=== PATIENT | male | born 1940 | race Caucasian/White ===

== ENCOUNTER 2019-12-31 09:17 | Inpatient (IN) | payer MEDICARE, SELFPAY ==
[2019-12-31] VITALS (15 sets, daily range): BP systolic 115–146; BP diastolic 61–73; PULSE 60–88; RESP 15–28; TEMP 36.4–37.8; O2SAT 88–98; BMI 23.9; BMI 23.4
--- NOTE | 2019-12-31 09:26 | EKG12_ITS ---
Test Reason : SOB Blood Pressure : / mmHG Vent. 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
--- NOTE | 2019-12-31 09:29 | ED.DCSUM_ITS ---
History of Present Illness Chief Complaint: Shortness of Breath Informant: Patient, Family Onset: Days Context: Gradual Onset Current Severity: Mild Maximum Severity: Mild Narrative: Patient presents via EMS secondary to shortness of breath and increased confusion. Per she noted symptoms 4 days ago and want him evaluated that time. She states that he will gasp for breath in his sleep. Patient does note chills and a mild dry cough. He denies fever. advises me that he will eat breakfast each morning but otherwise would not eat the rest of the day. He has been taking his medications appropriately. - Past Medical History (1) Seizures Status: Chronic Past Medical History - Allergies and Home Meds Allergies/Adverse Reactions: Allergies No Known Allergies Allergy (Verified 12/31/19 09:21) Primary Care Physician: Levar Pedroza MD [Primary Care Provider] - Prior records reviewed: Yes Lives: Spouse/ Significant Other Smoking Status: Never smoker Review of Systems General: Reports: Chills. Denies: Fever Eyes: Denies: Visual changes - bilaterally ENT: Denies: Bilateral ear pain Cardiovascular: Denies: Chest pain Respiratory: Reports: Dyspnea, Cough. Denies: Sputum Gastrointestinal: Denies: Abdominal pain, Vomiting, Diarrhea Musculoskeletal: Denies: Extremity Pain Skin: Denies: Rash Neurological: Denies: Headache Hematologic: Denies: Easy bruising, Easy bleeding Allergy: Denies: Uticaria Physical Exam Vital Signs/Narrative: Vital Signs Temp Pulse Resp BP Pulse Ox 12/31/19 09:19 97.9 F 79 26 H 130/61 H 94 12/31/19 09:17 97.9 F 82 22 H 130/61 H 94 Inital Vital Signs reviewed: Yes General: Well nourished, Well developed Head: Normocephalic ENT: Moist mucous membranes Neck: Supple Cardiovascular: Regular rate, Regular rhythm Respiratory: No distress, CTA bilaterally, - - Tachypneic Abdomen: Soft, Nontender Extremities: Nontender Skin: Normal color Neurological: Alert, Oriented x3, - - No focal neurologic deficits Psychological: Normal affect Diagnostic/Tx/Re-eval Impressions Chest X-Ray 12/31/19 09:37 IMPRESSION: Mild increased markings in the right infrahilar region as well as in the left mid lung. This may represent early infiltrates. Follow-up is recommended. Electronically Signed: Shaun Linares, at 9:52 EDT , Service support , Chest CTA 12/31/19 10:15 IMPRESSION: Bilateral pulmonary infiltrates in the preferentially lateral distribution as described. Pneumonitis associated with Covid should be ruled out. Electronically Signed: Shaun Linares, at 11:25 EDT , Service support , 12/31/19 09:37 Chest 1 View (Portable) [RAD] Stat 12/31/19 10:15 CTA Chest W/WO Contrast [CT] Stat Laboratory Results 12/31/19 12/31/19 12/31/19 09:25 09:25 09:25 WBC 6.0 RBC 4.70 Hgb 14.9 Hct 44.6 MCV 94.9 H MCH 31.7 MCHC 33.4 RDW Std Deviation 45.2 H RDW Coeff of Lisandro 12.9 Plt Count 169 MPV 10.2 Immature Gran % (Auto) 0.700 Neut % (Auto) 77.4 H Lymph % (Auto) 15.1 L [place] % (Auto) 6.8 Eos % (Auto) 0.0 Baso % (Auto) 0.0 Absolute Neuts (auto) 4.7 Absolute Lymphs (auto) 0.91 Nucleated RBC % 0 Differential Comment SCANNED D-Dimer Quant (PE/DVT) 1.72 H* Sodium 140 Potassium 3.5 Chloride 112 H Carbon Dioxide 21.0 Anion Gap 7 BUN 23 H Creatinine 1.48 H Estim Creat Clear Calc 42.47 Est GFR (MDRD) Af Amer 59 L Est GFR (MDRD) Non-Af 49 L BUN/Creatinine Ratio 15.5 Glucose 93 Lactic Acid Calcium 8.4 L Total Bilirubin 0.90 AST 83 H ALT 56 Alkaline Phosphatase 74 Troponin I 0.023 Total Protein 7.3 Albumin 3.0 L Globulin 4.3 H Albumin/Globulin Ratio 0.7 L Procalcitonin COVID-19 (PENNY) 12/31/19 12/31/19 12/31/19 09:25 09:25 09:35 WBC RBC Hgb Hct MCV MCH MCHC RDW Std Deviation RDW Coeff of Lisandro Plt Count MPV Immature Gran % (Auto) Neut % (Auto) Lymph % (Auto) [place] % (Auto) Eos % (Auto) Baso % (Auto) Absolute Neuts (auto) Absolute Lymphs (auto) Nucleated RBC % Differential Comment D-Dimer Quant (PE/DVT) Sodium Potassium Chloride Carbon Dioxide Anion Gap BUN Creatinine Estim Creat Clear Calc Est GFR (MDRD) Af Amer Est GFR (MDRD) Non-Af BUN/Creatinine Ratio Glucose Lactic Acid 1.7 Calcium Total Bilirubin AST ALT Alkaline Phosphatase Troponin I Total Protein Albumin Globulin Albumin/Globulin Ratio Procalcitonin 0.14 H COVID-19 (PENNY) Detected - EKG Initial EKG Interpretation: Sinus Rhythm - Sinus at 78 with no acute ischemia. - Medical Decision Making Patient has been stable on room air while sitting at rest. He does, however, have intermittent confusion. Test results have been discussed with him multiple times. Patient's has called multiple times and has been very upset that she was not able to come back to the room with him. I did call her to explain his test results and did recommend hospitalization for further observation of his breathing as he remains quite tachypneic. Patient will be discussed with the hospitalist. ED Disposition - Plan for ED Patient: Disposition: Acute Care Hospital [facility] Diagnosis: COVID-19, Confusion Referrals: Levar Pedroza MD [Primary Care Provider] -
--- NOTE | 2019-12-31 09:37 | RAD_ITS ---
STUDY: X-RAY CHEST REASON FOR EXAM: Male, 79 years old. SOB xA FEW DAYS, CHILLS TECHNIQUE: Single AP portable view of the chest. COMPARISON: None. FINDINGS: EKG electrodes are seen. There are mild increased markings in the right infrahilar region as well as in the peripheral aspect of the left mid lung. Follow-up is recommended. There is no demonstrated pleural abnormality. Normal size heart. Normal mediastinum and yayo. Normal visualized pulmonary arteries. There is atherosclerotic tortuosity of the aortic arch and descending thoracic aorta. There are diffuse degenerative changes of the visualized thoracic spine. Normal visualized ribs, clavicles, and shoulders. There is no demonstrated abnormality of the visualized soft tissue structures of the upper abdomen. RAD/Chest 1 View (Portable) IMPRESSION: Mild increased markings in the right infrahilar region as well as in the left mid lung. This may represent early infiltrates. Follow-up is recommended. Electronically Signed: Shaun Linares, at 9:52 EDT , Service support ,
[2019-12-31 09:59] LABS: Absolute Lymphocyte Count 0.91 X10^3/uL (0.83-4.51); Absolute Neutrophil Count 4.7 X10^3/uL (2.0-7.7); Hematocrit 44.6 % (40-54); Hemoglobin 14.9 g/dL (13.0-16.5); Lymphocyte # 0.91 X10^3/ul (4.0); Lymphocyte % 15.1 % (19-41); Mean Corp Hgb Conc 33.4 g/dL (32-36); Mean Corpuscular Hgb 31.7 pg (27.0-32.0); Mean Corpuscular Volume 94.9 fL (80-94); Mean Platelet Vol. 10.2 fl (6.2-12.0); Monocyte# 0.41 X10^3/uL; Monocyte% 6.8 % (0-10); NRBC Flagged by Analyzer 0 % (0-5); Neutrophil # 4.68 X10^3/uL (2.7-7.7); Neutrophil % 77.4 % (47-70); POSITIVE MORPHOLOGY YES; Platelet Count 169 K/mm3 (150-450); RBC Distribution Width CV 12.9 % (11.6-14.6); RBC Distribution Width SD 45.2 fl (35.1-43.9)
[2019-12-31 10:03] LABS: Differential Indicated SCAN CRITERIA MET
[2019-12-31 10:11] LABS: ALB/GLOB Ratio 0.7 RATIO (0.9-2.4); AST(SGOT) 83 U/L (15-37); Alanine Aminotransfer ALT/SGPT 56 U/L (16-61); Alkaline Phosphatase 74 U/L (45-117); Anion Gap 7 (5-15); BUN 23 mg/dL (7-18); BUN/Creat Ratio 15.5 RATIO (10-20); Calcium,Total 8.4 mg/dL (8.5-10.1); Chloride 112 mmol/L (98-107); Creatinine, Serum 1.48 mg/dL (0.70-1.30); EST Glomerular Filtration Rate 49 mL/min (>60); Est Glom Filt Rate - Afr Amer 59 mL/min (>60); Estimated Creatinine Clearance 42.47 ml/min; Globulin 4.3 g/dL (2.2-4.2); Glucose 93 mg/dL (74-106); Potassium 3.5 mmol/L (3.5-5.1); Protein, Total 7.3 g/dL (6.4-8.2); Sodium Level 140 mmol/L (136-145)
[2019-12-31 10:14] LABS: D-Dimer Quantitative (DVT/PE) 1.72 FEU/ug/m (0.27-0.49)
--- NOTE | 2019-12-31 10:15 | CT_ITS ---
STUDY: CTA CHEST REASON FOR EXAM: Male, 79 years old. SOB X A FEW DAYS, CHILLS, SEIZURE RADIATION DOSAGE (If Supplied By Facility): CTDIvol = ( 15.18 ) mGy, DLP = ( 432.79 ) mGycm TECHNIQUE: The examination was performed with the intravenous administration of IV 100mL Isovue-370. Post-processing of the angiographic images was performed, with multiplanar reformation and 3D reconstruction. Individualized dose optimization techniques were used for this CT. COMPARISON: None. FINDINGS: Normal enhancement of the main pulmonary artery and right and left pulmonary arteries. Normal enhancement of the bilateral peripheral pulmonary arteries. There is no demonstrated pulmonary embolism. There is atherosclerotic calcification of the aortic arch with tortuosity. There is no demonstrated aortic dissection. Normal heart and pericardium. There are visualized mediastinal lymph nodes, which are within normal size limits, and with normal morphology. Mildly enlarged right hilar lymph node measuring 1.7 cm. Normal visualized trachea and bronchi. The lungs are well expanded. Multiple areas of groundglass appearance in the preferentially lateral distribution in both lungs. There is evidence of infiltration at both lung bases more prominent on the right side. There is also to a mild degree of scarring with bronchiectasis in the lower lobes. Findings are suggestive of lateral distribution as described. Findings suggestive of a Covid pneumonitis. Normal pleura. Normal chest wall structures. There are degenerative changes of thoracic spine. Small hiatal hernia. CT/CTA Chest W/WO Contrast IMPRESSION: Bilateral pulmonary infiltrates in the preferentially lateral distribution as described. Pneumonitis associated with Covid should be ruled out. Electronically Signed: Shaun Linares, at 11:25 EDT , Service support ,
[2019-12-31 10:20] LABS: Lactic Acid 1.7 mmol/L (0.4-1.9)
[2019-12-31 10:27] LABS: Differential Comment SCANNED
[2019-12-31 10:48] LABS: Procalcitonin 0.14 ng/mL (0.00-0.09)
--- NOTE | 2019-12-31 12:59 | HP.PCM_ITS ---
Problem List (1) Acute metabolic encephalopathy Status: Acute (2) CKD (chronic kidney disease) Status: Chronic Qualifiers: Chronic kidney disease stage: stage 3 (moderate) (3) Seizures Status: Chronic (4) COVID-19 Status: Acute History of Present Illness Date of Admission: 12/31/19 Chief Complaint: Shortness of breath and increased confusion - 15 days but worsened over the last 4 days The patient is a 79 year old M with PMHx of seizure disorder, h/o TIA, who comes in with shortness of breath, fatigue, cough ongoing 15 days ago, but worse over 4 days. She was taking from the patient's as patient is a poor historian. His stated that they got infected about 15 days ago from contacts at [employer]. Patient is [employer]. They have been in quarantine since then. Patient has been progressively short of breath with intermittent cough. He has however been confused and progressed over the last 4 days. 2 days prior to admission, patient was confused and took his seizure medication twice. His has been encouraging him to come to the hospital but patient refused. The EMS was called today and the patient was brought to the ED. In the ED, his temperature is 97.9 F, heart rate 82, blood pressure 130/61, respiratory rate was 22, SPO2 was 94% on room air. BC count was 6.0, hemoglobin 14.9, platelet 169, D-dimer 1.72, fibrinogen 604, sodium 140, potassium 3.5, chloride 112, bicarbonate 21, BUN 23, creatinine 1.48, no previous creatinine to compare. Lactic acid 1.7, LDH 544, CK 377. Procalcitonin 0.14, COVID-19 PCR positive. Chest x-ray shows increased markings in the right infra hilar region as well as in the left midlung. CTA chest showed bilateral pulmonary infiltrates in the peripheral regions. Past Medical History Past Medical History (Chronic Problems): Chronic Problems Seizures (Chronic) CKD (chronic kidney disease) (Chronic) Allergies No Known Allergies Allergy (Verified 12/31/19 09:21) Home Medications: Ambulatory Orders Medication Instructions Recorded Aspirin 81 mg PO 12/31/19 Topiramate 1 tab PO BID 12/31/19 levETIRAcetam tablet [Keppra 1,000 mg PO BID 12/31/19 tablet] Surgical History: herniorrhaphy Psychiatric History: No pertinent psych hx Lives: Spouse/ Significant Other Smoking Status: Never smoker Tobacco Use: Non-smoker Alcohol: None Drugs: None - *Family History Maternal History Items: Diabetes Paternal History Items: Cancer - colon cancer Review of Systems Constitutional: Reports: Anorexia, Fever, Malaise, Weakness, Fatigue. Denies: Chills, Night Sweats, Weight Change Eyes: Denies: Blurred vision, Cataracts, Conjunctivae Inflammation, Pain, Redness, Vision Change HEENT: Denies: Difficulty Hearing, Difficulty Swallowing, Head Aches, Hearing Changes, Sinus Congestion, Sinus Drainage, Sore Throat Cardiovascular: Denies: Chest Pain, Claudication, Orthopnea, Palpitations, Paroxysmal Noc. Dyspnea Respiratory: Reports: Cough, Shortness of Breath, Shortness of breath at rest, Shortness of breath upon exertion. Denies: Hemoptysis, Sputum production Gastrointestinal: Denies: Abdominal Pain, Constipation, Hematemesis, Hematochezia, Nausea, Vomiting Genitourinary: Denies: Dysuria Musculoskeletal: Denies: Joint Pain, Joint stiffness, Joint swelling, Joint Tenderness Skin: Denies: Pruritis, Rash, Wounds Neurological: Reports: Confusion. Denies: Difficulty swallowing, Focal weakness, Numbness, Tingling Psychiatric: Denies: Anxiety, Depression, Homicidal Ideations, Suicidal Ideations Hematologic/ Lymphatic: Denies: Easy Bruising, Easy Bleeding VTE Information - Inpt Only VTE Present on Admission: No VTE Pharm Prophylaxis ordered?: Yes Patient Problems: Active and Suspected Problems COVID-19 (Acute) Confusion (Acute) - Physical Exam Vitals/I&O's: Vital Signs Temp Pulse Resp BP Pulse Ox 97.9 F 74 15 115/61 95 12/31/19 12:00 12/31/19 12:00 12/31/19 12:00 12/31/19 12:00 12/31/19 12:00 Oxygen Delivery Method Room Air Weight: 75.6 kg Body Mass Index (BMI) 23.9 General: Alert, Oriented x3, Cooperative, No apparent distress, - - On 2 L of oxygen HEENT: Atraumatic, PERRLA, EOMI, Normocephalic Oral: Moist Mucosa Neck: Supple Lungs: Diminished Cardiovascular: Regular rate, Regular Rhythm, Normal S1, Normal S2 Abdomen: Bowel Sounds Present, Soft, Non Tender, Non-Distended, No Hepato- splenomegaly Extremities: No edema Skin: No rashes Musculoskeletal: No Tenderness to Palpation of Joints or Extremities Lymphatic: No Cervical, Supraclavicular, or Inguinal Adenopathy Neurological: Cranial nerves II-XII grossly intact, Neuro grossly intact Psych/Mental Status: Normal Affect, Appropriate Microbiology Past 72 Hours 12/31/19 09:35 Mucosa - Nose Respiratory Panel (PCR) - Final Laboratory Results 12/31/19 09:25: WBC 6.0, RBC 4.70, Hgb 14.9, Hct 44.6, MCV 94.9 H, MCH 31.7, MCHC 33.4, RDW Std Deviation 45.2 H, RDW Coeff of Lisandro 12.9, Plt Count 169, MPV 10.2, Immature Gran % (Auto) 0.700, Neut % (Auto) 77.4 H, Lymph % (Auto) 15.1 L, [place] % (Auto) 6.8, Eos % (Auto) 0.0, Baso % (Auto) 0.0, Absolute Neuts (auto) 4.7, Absolute Lymphs (auto) 0.91, Nucleated RBC % 0, Differential Comment SCANNED 12/31/19 09:25: D-Dimer Quant (PE/DVT) 1.72 H* 12/31/19 09:25: Sodium 140, Potassium 3.5, Chloride 112 H, Carbon Dioxide 21.0, Anion Gap 7, BUN 23 H, Creatinine 1.48 H, Estim Creat Clear Calc 42.47, Est GFR (MDRD) Af Amer 59 L, Est GFR (MDRD) Non-Af 49 L, BUN/Creatinine Ratio 15.5, Glucose 93, Calcium 8.4 L, Total Bilirubin 0.90, AST 83 H, ALT 56, Alkaline Phosphatase 74, Troponin I 0.023, Total Protein 7.3, Albumin 3.0 L, Globulin 4.3 H, Albumin/Globulin Ratio 0.7 L 12/31/19 09:25: Lactic Acid 1.7 12/31/19 09:25: Procalcitonin 0.14 H 12/31/19 09:35: COVID-19 (PENNY) Detected Assessment/Plan All Active Problems COVID-19 (Acute) Confusion (Acute) Acute metabolic encephalopathy (Acute) 1. Acute hypoxic respiratory insufficiency secondary to Acute COVID-19 infection Patient is currently on 2 L of oxygen, Continue with breathing treatments,po steroids, encourage use of incentive spirometer. Wean off oxygen for SPO2 more than 94% 2. Acute COVID-19 infection with hypoxia Chest x-ray and CT of the chest showed groundglass opacity. No PE seen Started on IV dexamethasone in the ED, will continue ID consulted 3. Elevated Cr, unclear if SANDEEP vs CKD stage 3 No previous creatinine to compare, admitting creatinine is 1.43 We will give gentle IV fluids, repeat blood work in a.m. 4. Acute metabolic encephalopathy secondary to #1 and #2, patient is alert oriented x3 We will continue to monitor 5. Seizure disorder, continue on Keppra and Topamax 6. DVT prophylaxis with heparin subcu 7. Code status - DNR-CCA, no intubation I discussed goals of care with patient. I went on to explain in details the various types of CODE STATUS-full code, DNR CCA, DNR CC. He stated that he does not want to be on life support. I called the patient's , updated her, and clarified CODE STATUS, she said the same thing the patient would not like to be on artificial life support. Time spent discussing CODE STATUS 20 minutes Inpatient E&M: 22456 Init Hosp L3 Procedures: 72221 Advncd Care Plan addl 30 Min
[2019-12-31] MEDS: dexAMETHasone 10 MG/ML Vial 6 MG IV (13:46)
[2019-12-31 15:45] LABS: Fibrinogen 604 mg/dl (203-444)
[2019-12-31 15:54] LABS: CPK Total, Creatine Kinase 377 U/L (39-308); LDH 544 U/L (87-241)
[2019-12-31 17:12] LABS: Procalcitonin 0.11 ng/mL (0.00-0.09)
[2019-12-31] MEDS: 0.9% Normal Saline 1,000 ML 50 ML IV (18:33)
[2019-12-31] MEDS: levETIRAcetam 1,000 MG Tablet 1000 MG PO (22:16)
[2019-12-31] MEDS: Topiramate 50 MG Tablet PO (22:16)
[2019-12-31] MEDS: Enoxaparin 30 MG/0.3 ML Syringe SC (22:17)
[2020-01-01] VITALS (13 sets, daily range): BP systolic 140–149; BP diastolic 68–73; PULSE 55–77; RESP 18–21; TEMP 36.1–36.4; O2SAT 89–94
[2020-01-01 06:07] LABS: Absolute Lymphocyte Count 0.93 X10^3/uL (0.83-4.51); Absolute Neutrophil Count 5.9 X10^3/uL (2.0-7.7); Basophil# 0.01 X10^3/uL; Basophil% 0.1 % (0-1); Hematocrit 45.6 % (40-54); Hemoglobin 14.9 g/dL (13.0-16.5); Lymphocyte # 0.93 X10^3/ul (4.0); Lymphocyte % 12.7 % (19-41); Mean Corp Hgb Conc 32.7 g/dL (32-36); Monocyte# 0.45 X10^3/uL; Monocyte% 6.1 % (0-10); NRBC Flagged by Analyzer 0 % (0-5); Neutrophil % 80.3 % (47-70); Platelet Count 167 K/mm3 (150-450); RBC Distribution Width CV 12.7 % (11.6-14.6); RBC Distribution Width SD 45.1 fl (35.1-43.9); White Blood Count 7.4 K/mm3 (4.4-11.0)
[2020-01-01 06:38] LABS: ALB/GLOB Ratio 0.7 RATIO (0.9-2.4); AST(SGOT) 76 U/L (15-37); Alanine Aminotransfer ALT/SGPT 53 U/L (16-61); Albumin, Serum 2.7 g/dL (3.2-5.0); Alkaline Phosphatase 73 U/L (45-117); Anion Gap 8 (5-15); BUN 24 mg/dL (7-18); BUN/Creat Ratio 25.6 RATIO (10-20); Chloride 115 mmol/L (98-107); Creatinine, Serum 0.94 mg/dL (0.70-1.30); EST Glomerular Filtration Rate 83 mL/min (>60); Est Glom Filt Rate - Afr Amer 100 mL/min (>60); Estimated Creatinine Clearance 66.87 ml/min; Globulin 3.8 g/dL (2.2-4.2); Glucose 123 mg/dL (74-106); Potassium 4.1 mmol/L (3.5-5.1); Protein, Total 6.5 g/dL (6.4-8.2); Sodium Level 142 mmol/L (136-145)
--- NOTE | 2020-01-01 07:29 | PCM.PN.HOSP ---
Patient Problems: Active and Suspected Problems COVID-19 (Acute) Confusion (Acute) Acute metabolic encephalopathy (Acute) Reason for Visit: Follow up on hypoxia/acute COVID-19 pneumonia Subjective: Patient was seen and examined. Denied any new complaints. Patient currently is on 4 L of oxygen. Intermittent episodes of confusion noted. Objective: Physical exam: General: Alert, Oriented x3, Cooperative, No apparent distress, - - On 4 L of oxygen HEENT: Atraumatic, PERRLA, EOMI, Normocephalic Oral: Moist Mucosa Neck: Supple Lungs: Diminished Cardiovascular: Regular rate, Regular Rhythm, Normal S1, Normal S2 Abdomen: Bowel Sounds Present, Soft, Non Tender, Non-Distended, No Hepato-splenomegaly Extremities: No edema Skin: No rashes Musculoskeletal: No Tenderness to Palpation of Joints or Extremities Lymphatic: No Cervical, Supraclavicular, or Inguinal Adenopathy Neurological: Cranial nerves II-XII grossly intact, Neuro grossly intact Psych/Mental Status: Normal Affect, Appropriate Vitals/I&O's: Vital Signs Temp Pulse Resp BP Pulse Ox 97.5 F L 55 L 18 148/73 H 93 01/01/20 04:29 01/01/20 04:59 01/01/20 04:29 01/01/20 04:29 01/01/20 04:29 Oxygen Flow Rate (L/min) 2 Oxygen Delivery Method Nasal Cannula Weight: 73.9 kg Body Mass Index (BMI) 23.4 Intake and Output for Last 24 Hours 12/30/19 12/31/19 01/01/20 23:59 23:59 23:59 Intake Total 220 / 220 200 / 200 Output Total 200 / 200 Balance 220 / 220 0 / 0 Microbiology Past 72 Hours 12/31/19 09:35 Mucosa - Nose Respiratory Panel (PCR) - Final Laboratory Results 12/31/19 09:25: WBC 6.0, RBC 4.70, Hgb 14.9, Hct 44.6, MCV 94.9 H, MCH 31.7, MCHC 33.4, RDW Std Deviation 45.2 H, RDW Coeff of Lisandro 12.9, Plt Count 169, MPV 10.2, Immature Gran % (Auto) 0.700, Neut % (Auto) 77.4 H, Lymph % (Auto) 15.1 L, [place] % (Auto) 6.8, Eos % (Auto) 0.0, Baso % (Auto) 0.0, Absolute Neuts (auto) 4.7, Absolute Lymphs (auto) 0.91, Nucleated RBC % 0, Differential Comment SCANNED 12/31/19 09:25: D-Dimer Quant (PE/DVT) 1.72 H* 12/31/19 09:25: Sodium 140, Potassium 3.5, Chloride 112 H, Carbon Dioxide 21.0, Anion Gap 7, BUN 23 H, Creatinine 1.48 H, Estim Creat Clear Calc 42.47, Est GFR (MDRD) Af Amer 59 L, Est GFR (MDRD) Non-Af 49 L, BUN/Creatinine Ratio 15.5, Glucose 93, Calcium 8.4 L, Total Bilirubin 0.90, AST 83 H, ALT 56, Alkaline Phosphatase 74, Troponin I 0.023, Total Protein 7.3, Albumin 3.0 L, Globulin 4.3 H, Albumin/Globulin Ratio 0.7 L 12/31/19 09:25: Lactic Acid 1.7 12/31/19 09:25: Procalcitonin 0.14 H 12/31/19 09:25: Lactate Dehydrogenase 544 H, Total Creatine Kinase 377 H 12/31/19 09:25: Fibrinogen 604 H 12/31/19 09:35: COVID-19 (PENNY) Detected 12/31/19 16:05: Procalcitonin 0.11 H 01/01/20 05:54: WBC 7.4, RBC 4.80, Hgb 14.9, Hct 45.6, MCV 95.0 H, MCH 31.0, MCHC 32.7, RDW Std Deviation 45.1 H, RDW Coeff of Lisandro 12.7, Plt Count 167, MPV 10.0, Immature Gran % (Auto) 0.800, Neut % (Auto) 80.3 H, Lymph % (Auto) 12.7 L, [place] % (Auto) 6.1, Eos % (Auto) 0.0, Baso % (Auto) 0.1, Absolute Neuts (auto) 5.9, Absolute Lymphs (auto) 0.93, Nucleated RBC % 0 01/01/20 05:54: Sodium 142, Potassium 4.1, Chloride 115 H, Carbon Dioxide 19.0 L, Anion Gap 8, BUN 24 H, Creatinine 0.94, Estim Creat Clear Calc 66.87, Est GFR (MDRD) Af Amer 100, Est GFR (MDRD) Non-Af 83, BUN/Creatinine Ratio 25.6 H, Glucose 123 H, Calcium 8.0 L, Total Bilirubin 0.70, AST 76 H, ALT 53, Alkaline Phosphatase 73, Total Protein 6.5, Albumin 2.7 L, Globulin 3.8, Albumin/Globulin Ratio 0.7 L Current Medications Acetaminophen (Acetaminophen 325 Mg Tablet) 650 mg PO Q6H PRN PRN PRN Reason: Pain Score 1-10/Temp > 100.7 F Al Hydroxide/Mg Hydroxide (Mag Hydrox/Al Hydrox/Simeth 30 Ml Udc) 30 ml PO Q6H PRN PRN PRN Reason: Gastric Burning Albuterol Sulfate (Albuterol Sulfate 8 Gm Inhaler (60 Puffs)) 2 puff INHALATION Q4H PRN PRN PRN Reason: SOB &/OR WHEEZING Dexamethasone (Dexamethasone 4 Mg Tablet) 6 mg PO DAILY@0800 [facility] Stop: 01/09/20 08:01 Enoxaparin Sodium (Enoxaparin 30 Mg/0.3 Ml Syringe) 30 mg SC BID [facility] Last Admin: 12/31/19 22:17 Dose: 30 mg Documented by: Sodium Chloride () 250 mls @ 15 mls/hr IV .[id number] PRN PRN Reason: Saline Flush Sodium Chloride () 250 mls @ 15 mls/hr IV .[id number] PRN PRN Reason: Additional IVPB Infusion Sodium Chloride () 1,000 mls @ 50 mls/hr IV .Q20H [facility] Stop: 01/01/20 14:04 Last Admin: 12/31/19 18:33 Dose: 50 mls/hr Documented by: Levetiracetam (Levetiracetam 1,000 Mg Tablet) 1,000 mg PO BID [facility] Last Admin: 12/31/19 22:16 Dose: 1,000 mg Documented by: Nutritional Formula (Lactose Free) (Ensure Enlive 120 Ml Liquid) 120 ml PO 4X/DAY [facility] Last Admin: 12/31/19 22:16 Dose: 120 ml Documented by: Ondansetron HCl (Ondansetron 4 Mg/2 Ml Vial) 4 mg IV Q8H PRN PRN PRN Reason: NAUSEA/VOMITING Sodium Chloride (0.9% Saline Lock 10 Ml Syringe) 10 - 40 ml IV UD PRN PRN Reason: SALINE FLUSH Topiramate (Topiramate 50 Mg Tablet) 50 mg PO BID [facility] Last Admin: 12/31/19 22:16 Dose: 50 mg Documented by: STROKE Vital Signs/Narrative: Vital Signs Temp Pulse Resp BP Pulse Ox 01/01/20 04:59 55 L 01/01/20 04:29 97.5 F L 58 L 18 148/73 H 93 Medical Necessity - Tobacco Use Smoking Status: Never smoker Tobacco Use: Non-smoker Assessment/Plan All Active Problems COVID-19 (Acute) Confusion (Acute) Acute metabolic encephalopathy (Acute) 1. Acute hypoxic respiratory insufficiency secondary to Acute COVID-19 infection Patient is currently on 4L of oxygen, Will stop IV fluids, challenge with a trial of Lasix 40 mg IV x1 Continue with breathing treatments,po steroids, encourage use of incentive spirometer. Wean off oxygen for SPO2 more than 94% If patient's respiratory status gets worse, will consult pulmonology. 2. Acute COVID-19 infection with hypoxia Chest x-ray and CT of the chest showed groundglass opacity. No PE seen On oral Decadron. ID consulted 3. SANDEEP on probable CKD stage III, admitting creatinine was 1.48, creatinine today 0.94 No previous creatinine to compare Repeat blood work in a.m. 4. Acute metabolic encephalopathy secondary to #1 and #2, patient is alert oriented x3 We will continue to monitor 5. Seizure disorder, continue on Keppra and Topamax 6. DVT prophylaxis with heparin subcu 7. Code status - DNR-CCA, no intubation Inpatient E&M: 31705 Subs Hosp L2
[2020-01-01] MEDS: dexAMETHasone 4 MG Tablet 6 MG PO (11:07)
[2020-01-01] MEDS: Enoxaparin 30 MG/0.3 ML Syringe SC ×2 (11:07→22:55)
[2020-01-01] MEDS: Topiramate 50 MG Tablet PO ×2 (11:07→22:55)
[2020-01-01] MEDS: levETIRAcetam 1,000 MG Tablet 1000 MG PO ×2 (11:08→22:55)
--- NOTE | 2020-01-01 14:41 | CASEMGMT ---
RN CM Note: attempted x 2 to call to room. Patient is unable to participate in assessment at this time. Isidro HOLLEYN RN ACM
[2020-01-01] MEDS: Furosemide 40 MG/4 ML Vial IV (14:54)
[2020-01-01] MEDS: 0.9% Saline Lock 10 ML Syringe IV (14:58)
--- NOTE | 2020-01-01 16:01 | CT_ITS ---
STUDY: CT BRAIN WITHOUT CONTRAST REASON FOR EXAM: Male, 79 years old. Confusion x 5 days, trouble finding words, + COVID RADIATION DOSAGE (If Supplied By Facility): CTDIvol = ( 60.81 ) mGy, DLP = ( 998.67 ) mGycm TECHNIQUE: Transaxial CT imaging of the brain was performed without administration of intravenous contrast material. Individualized dose optimization techniques were used for this CT. COMPARISON: No relevant priors. FINDINGS: Normal soft tissue structures. Normal calvarium. Normal size ventricles and extra-axial spaces for the patient''s age. Mild white matter microangiopathic ischemic changes of the cerebral hemispheres. 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 Normal basal ganglia. Normal brainstem. Normal cerebellum. There is no intracranial hemorrhage. There are no findings of an acute ischemic infarction. Normal visualized paranasal sinuses. CT/Brain/Head without Contrast IMPRESSION: Age-related and chronic changes of the brain. Electronically Signed: Greg Mueller DO at 20:34 EDT Tel [phone], Service support ,
--- NOTE | 2020-01-01 16:02 | PCM.HP.ID ---
Problem List (1) COVID-19 Status: Acute Reason for Consult: covid Consulted by: Dr. Pittman History of Present Illness: The patient is a 79 year old M who presented yesterday to the ED with 4 days of confusion at home. Sick with covid about 2 weeks ago, reports fatigue, cough, SOB. has been feeling fine. No n/v/d, no aches, no change in taste or smell. Taken to ED, CT chest done, started on dex. Full ROS performed and neg except as noted above. - Medical History Past Medical History (Chronic Problems): Chronic Problems Seizures (Chronic) CKD (chronic kidney disease) (Chronic) Allergies/Adverse Reactions: Allergies No Known Allergies Allergy (Verified 12/31/19 09:21) Home Medications: Ambulatory Orders Medication Instructions Recorded Aspirin 81 mg PO 12/31/19 Topiramate 1 tab PO BID 12/31/19 levETIRAcetam tablet [Keppra 1,000 mg PO BID 12/31/19 tablet] - Social History Tobacco Use: non-smoker Vital Signs Temp Pulse Resp BP Pulse Ox 97.4 F L 72 20 H 140/73 H 94 01/01/20 15:00 01/01/20 15:00 01/01/20 15:00 01/01/20 15:00 01/01/20 15:00 Oxygen Flow Rate (L/min) 4 Oxygen Delivery Method Room Air Weight: 73.9 kg Body Mass Index (BMI) 23.4 Microbiology Past 72 Hours 12/31/19 09:35 Respiratory Panel (PCR) - Final Mucosa - Nose Laboratory Tests Past 24 Hrs 12/31/19 01/01/20 01/01/20 16:05 05:54 05:54 WBC 7.4 RBC 4.80 Hgb 14.9 Hct 45.6 MCV 95.0 H MCH 31.0 MCHC 32.7 RDW Std Deviation 45.1 H RDW Coeff of Lisandro 12.7 Plt Count 167 MPV 10.0 Immature Gran % (Auto) 0.800 Neut % (Auto) 80.3 H Lymph % (Auto) 12.7 L [place] % (Auto) 6.1 Eos % (Auto) 0.0 Baso % (Auto) 0.1 Absolute Neuts (auto) 5.9 Absolute Lymphs (auto) 0.93 Nucleated RBC % 0 Sodium 142 Potassium 4.1 Chloride 115 H Carbon Dioxide 19.0 L Anion Gap 8 BUN 24 H Creatinine 0.94 Estim Creat Clear Calc 66.87 Est GFR (MDRD) Af Amer 100 Est GFR (MDRD) Non-Af 83 BUN/Creatinine Ratio 25.6 H Glucose 123 H Calcium 8.0 L Total Bilirubin 0.70 AST 76 H ALT 53 Alkaline Phosphatase 73 Total Protein 6.5 Albumin 2.7 L Globulin 3.8 Albumin/Globulin Ratio 0.7 L Procalcitonin 0.11 H - Other Studies Radiology: [] reviewed Other Studies: [] Route of nutrition/ use of supplements: [] Nutritional Intake: [] IV Site: [] Stephens Catheter: [] - Physical Exam General: Alert, Cooperative, No apparent distress HEENT: Atraumatic, PERRLA, EOMI Neck: Supple, No Nodes Lungs: Diminished Cardiovascular: Regular rate, Regular Rhythm Abdomen: Soft, Non Tender, Non-Distended Extremities: No edema Skin: No rashes IV Site: Peripheral Musculoskeletal: No Tenderness to Palpation of Joints or Extremities Neurological: Cranial nerves II-XII grossly intact, - - word finding difficulty - Assessment/Plan Antibiotics: [] Assessment/Plan: [] Active and Suspected Problems COVID-19 (Acute) Confusion (Acute) Acute metabolic encephalopathy (Acute) covid - on dex. Outside window for plasma or remdesivir. On lovenox prophy. CT neg for PE. With confusion and word finding difficulty, will order CT head. May need MRI. Will follow, thank you
[2020-01-02] VITALS (13 sets, daily range): BP systolic 128–158; BP diastolic 60–74; PULSE 56–77; RESP 17–20; TEMP 36.2–36.5; O2SAT 86–94
[2020-01-02] MEDS: Enoxaparin 30 MG/0.3 ML Syringe SC ×2 (08:23→21:11)
[2020-01-02] MEDS: levETIRAcetam 1,000 MG Tablet 1000 MG PO ×2 (08:23→21:11)
[2020-01-02] MEDS: Topiramate 50 MG Tablet PO ×2 (08:23→21:11)
[2020-01-02] MEDS: dexAMETHasone 4 MG Tablet 6 MG PO (08:23)
[2020-01-02 11:53] LABS: Absolute Lymphocyte Count 0.53 X10^3/uL (0.83-4.51); Absolute Neutrophil Count 13.3 X10^3/uL (2.0-7.7); Basophil# 0.02 X10^3/uL; Basophil% 0.1 % (0-1); Hematocrit 46.4 % (40-54); Hemoglobin 15.5 g/dL (13.0-16.5); Lymphocyte # 0.53 X10^3/ul (4.0); Lymphocyte % 3.6 % (19-41); Mean Corp Hgb Conc 33.4 g/dL (32-36); Mean Corpuscular Hgb 31.8 pg (27.0-32.0); Mean Corpuscular Volume 95.3 fL (80-94); Mean Platelet Vol. 10.1 fl (6.2-12.0); Monocyte% 4.7 % (0-10); NRBC Flagged by Analyzer 0 % (0-5); Neutrophil # 13.34 X10^3/uL (2.7-7.7); Neutrophil % 90.2 % (47-70); POSITIVE DIFFERENTIAL YES; Platelet Count 239 K/mm3 (150-450); RBC Distribution Width CV 13.2 % (11.6-14.6); RBC Distribution Width SD 46.8 fl (35.1-43.9); Red Blood Count 4.87 M/mm3 (4.6-6.2); White Blood Count 14.8 K/mm3 (4.4-11.0)
[2020-01-02 12:09] LABS: Differential Indicated SCAN CRITERIA MET
[2020-01-02 12:23] LABS: ALB/GLOB Ratio 0.6 RATIO (0.9-2.4); AST(SGOT) 64 U/L (15-37); Alanine Aminotransfer ALT/SGPT 57 U/L (16-61); Albumin, Serum 2.7 g/dL (3.2-5.0); Alkaline Phosphatase 86 U/L (45-117); Anion Gap 6 (5-15); BUN 35 mg/dL (7-18); BUN/Creat Ratio 28.5 RATIO (10-20); Calcium,Total 8.7 mg/dL (8.5-10.1); Chloride 114 mmol/L (98-107); Creatinine, Serum 1.23 mg/dL (0.70-1.30); EST Glomerular Filtration Rate 60 mL/min (>60); Est Glom Filt Rate - Afr Amer 73 mL/min (>60); Estimated Creatinine Clearance 51.11 ml/min; Globulin 4.6 g/dL (2.2-4.2); Glucose 144 mg/dL (74-106); Potassium 4.1 mmol/L (3.5-5.1); Protein, Total 7.3 g/dL (6.4-8.2); Sodium Level 142 mmol/L (136-145)
[2020-01-02 12:25] LABS: Differential Comment SCANNED
--- NOTE | 2020-01-02 12:34 | MRI_ITS ---
STUDY: MRI BRAIN WITHOUT CONTRAST REASON FOR EXAM: Male, 79 years old. encephalopathy, stroke, increased confusion, COVID + TECHNIQUE: Standardized multiplanar fat and water weighted pulse sequences were obtained. COMPARISON: CT 01/01/2020 FINDINGS: There is mild cerebral atrophy with widening of the extra-axial spaces and ventricular dilatation. There are a limited number of small white matter hyperintensities, distributed throughout the deep white matter tracts of the cerebral hemispheres, consistent with mild chronic white matter ischemic changes. There is no evidence for recent intracranial ischemia or other cause of cytotoxic edema on diffusion weighted imaging (DWI). Normal T2* images of the brain without demonstrated susceptibility artifact. There is no demonstrated hemosiderin stain. Normal bilateral basal ganglia. 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 There is no extra-axial fluid accumulation. Normal flow voids within the major intracranial circulation suggesting patency by spin echo criteria. There is enlargement of the sella turcica with increased CSF within the sella and flattening of the pituitary gland consistent with an empty sellar syndrome. Normal infundibular stalk, hypothalamus, and optic chiasm. Normal tectal plate and pineal gland. Normal midbrain, blanka and medulla. Normal cerebellum. Normal basal cisterns. Normal bilateral temporal bones. Normal bilateral internal auditory canals. No demonstrated orbital abnormality, within the constraints of a routine brain study. Normal visualized paranasal sinuses. Normal calvarium and skull base. Normal visualized soft tissue structures. Normal visualized upper cervical spine. MRI/Brain without Contrast IMPRESSION: Involutional changes of the brain, as described above. No acute infarct. Electronically Signed: Aurelio Pillai MD at 14:00 EST Tel , Service support ,
--- NOTE | 2020-01-02 14:24 | PCM.PN.HOSP ---
Patient Problems: Active and Suspected Problems COVID-19 (Acute) Confusion (Acute) Acute metabolic encephalopathy (Acute) Reason for Visit: Follow up on hypoxia/acute COVID-19 pneumonia Subjective: Patient was seen and examined. Denied any new complaints. Seen patient walking around the room without oxygen. Appears to be comfortable. No conversational dyspnea. Patient was evaluated for home oxygen and did qualify with being 86% on room air. Intermittent episodes of confusion noted, MRI brain will be ordered. Objective: Physical exam: General: Alert, Oriented x3, Cooperative, No apparent distress, - - On 3 L of oxygen HEENT: Atraumatic, PERRLA, EOMI, Normocephalic Oral: Moist Mucosa Neck: Supple Lungs: Diminished Cardiovascular: Regular rate, Regular Rhythm, Normal S1, Normal S2 Abdomen: Bowel Sounds Present, Soft, Non Tender, Non-Distended, No Hepato-splenomegaly Extremities: No edema Skin: No rashes Musculoskeletal: No Tenderness to Palpation of Joints or Extremities Lymphatic: No Cervical, Supraclavicular, or Inguinal Adenopathy Neurological: Cranial nerves II-XII grossly intact, Neuro grossly intact Psych/Mental Status: Normal Affect, Appropriate Vitals/I&O's: Vital Signs Temp Pulse Resp BP Pulse Ox 97.5 F L 71 18 140/66 H 90 01/02/20 11:51 01/02/20 11:51 01/02/20 11:51 01/02/20 11:51 01/02/20 11:59 Oxygen Flow Rate (L/min) [ 3 AMBULATION with Oxygen] Oxygen Flow Rate (L/min) 3 Oxygen Delivery Method Nasal Cannula Weight: 73.1 kg Body Mass Index (BMI) 23.4 Intake and Output for Last 24 Hours 12/31/19 01/01/20 01/02/20 23:59 23:59 23:59 Intake Total 220 / 220 1802.5 / 1902.5 300 / 300 Output Total 200 / 200 Balance 220 / 220 1602.5 / 1702.5 300 / 300 Microbiology Past 72 Hours 12/31/19 09:32 Blood Culture (Wb) - Left Hand Blood Culture - Preliminary No growth in 48 hours. 12/31/19 09:25 Blood Culture (Wb) - Anticubital Left Blood Culture - Preliminary No growth in 48 hours. 12/31/19 09:35 Mucosa - Nose Respiratory Panel (PCR) - Final Laboratory Results 01/02/20 07:54: WBC Cancelled, Corrected WBC Cancelled, RBC Cancelled, Hgb Cancelled, Hct Cancelled, MCV Cancelled, MCH Cancelled, MCHC Cancelled, RDW Std Deviation Cancelled, RDW Coeff of Lisandro Cancelled, Plt Count Cancelled, MPV Cancelled, Immature Gran % (Auto) Cancelled, Neut % (Auto) Cancelled, Lymph % (Auto) Cancelled, [place] % (Auto) Cancelled, Eos % (Auto) Cancelled, Baso % (Auto) Cancelled, Absolute Neuts (auto) Cancelled, Absolute Lymphs (auto) Cancelled, Total Counted Cancelled, Neutrophils % (Manual) Cancelled, Band Neutrophils % Cancelled, Lymphocytes % (Manual) Cancelled, Monocytes % (Manual) Cancelled, Eosinophils % (Manual) Cancelled, Basophils % (Manual) Cancelled, Metamyelocytes % Cancelled, Myelocytes % Cancelled, Promyelocytes % Cancelled, Blast Cells % Cancelled, Plasma Cell % (Manual) Cancelled, Other Cells % Cancelled, Nucleated RBC % Cancelled, Nucleated RBCs/100 WBC Cancelled, Differential Comment Cancelled, Diff Path Review Cancelled, Hypersegmented Neuts Cancelled, Atypical Lymphocytes Cancelled, Reactive Lymphocytes Cancelled, Smudge Cells Cancelled, Toxic Granulation Cancelled, Toxic Vacuolation Cancelled, Dohle Bodies Cancelled, Xander Rods Cancelled, Platelet Estimate Cancelled, Plt Morphology Comment Cancelled, RBC Morphology Cancelled, Polychromasia Cancelled, Hypochromasia Cancelled, Poikilocytosis Cancelled, Basophilic Stippling Cancelled, Anisocytosis Cancelled, Microcytosis Cancelled, Macrocytosis Cancelled, Spherocytes Cancelled, Sickle Cells Cancelled, Target Cells Cancelled, Tear Drop Cells Cancelled, Ovalocytes Cancelled, Stomatocytes Cancelled, [place] Bodies Cancelled, [place] Cells Cancelled, Bite Cells Cancelled, Crenated Cell Cancelled, Acanthocytes (Spur) Cancelled, Rouleaux Cancelled, Schistocytes Cancelled 01/02/20 07:54: Sodium Cancelled, Potassium Cancelled, Chloride Cancelled, Carbon Dioxide Cancelled, Anion Gap Cancelled, BUN Cancelled, Creatinine Cancelled, Estim Creat Clear Calc Cancelled, Est GFR (MDRD) Af Amer Cancelled, Est GFR (MDRD) Non-Af Cancelled, BUN/Creatinine Ratio Cancelled, Glucose Cancelled, Calcium Cancelled, Total Bilirubin Cancelled, AST Cancelled, ALT Cancelled, Alkaline Phosphatase Cancelled, Total Protein Cancelled, Albumin Cancelled, Globulin Cancelled, Albumin/Globulin Ratio Cancelled 01/02/20 11:32: Sodium 142, Potassium 4.1, Chloride 114 H, Carbon Dioxide 22.0, Anion Gap 6, BUN 35 H, Creatinine 1.23, Estim Creat Clear Calc 51.11, Est GFR (MDRD) Af Amer 73, Est GFR (MDRD) Non-Af 60, BUN/Creatinine Ratio 28.5 H, Glucose 144 H, Calcium 8.7, Total Bilirubin 0.70, AST 64 H, ALT 57, Alkaline Phosphatase 86, Total Protein 7.3, Albumin 2.7 L, Globulin 4.6 H, Albumin/Globulin Ratio 0.6 L 01/02/20 11:32: WBC 14.8 H, RBC 4.87, Hgb 15.5, Hct 46.4, MCV 95.3 H, MCH 31.8, MCHC 33.4, RDW Std Deviation 46.8 H, RDW Coeff of Lisandro 13.2, Plt Count 239, MPV 10.1, Immature Gran % (Auto) 1.400 H, Neut % (Auto) 90.2 H, Lymph % (Auto) 3.6 L, [place] % (Auto) 4.7, Eos % (Auto) 0.0, Baso % (Auto) 0.1, Absolute Neuts (auto) 13.3 H, Absolute Lymphs (auto) 0.53 L, Nucleated RBC % 0, Differential Comment SCANNED Current Medications Acetaminophen (Acetaminophen 325 Mg Tablet) 650 mg PO Q6H PRN PRN PRN Reason: Pain Score 1-10/Temp > 100.7 F Al Hydroxide/Mg Hydroxide (Mag Hydrox/Al Hydrox/Simeth 30 Ml Udc) 30 ml PO Q6H PRN PRN PRN Reason: Gastric Burning Albuterol Sulfate (Albuterol Sulfate 8 Gm Inhaler (60 Puffs)) 2 puff INHALATION Q4H PRN PRN PRN Reason: SOB &/OR WHEEZING Dexamethasone (Dexamethasone 4 Mg Tablet) 6 mg PO DAILY@0800 [facility] Stop: 01/09/20 08:01 Last Admin: 01/02/20 08:23 Dose: 6 mg Documented by: Enoxaparin Sodium (Enoxaparin 30 Mg/0.3 Ml Syringe) 30 mg SC BID [facility] Last Admin: 01/02/20 08:23 Dose: 30 mg Documented by: Sodium Chloride () 250 mls @ 15 mls/hr IV .[id number] PRN PRN Reason: Saline Flush Sodium Chloride () 250 mls @ 15 mls/hr IV .[id number] PRN PRN Reason: Additional IVPB Infusion Levetiracetam (Levetiracetam 1,000 Mg Tablet) 1,000 mg PO BID [facility] Last Admin: 01/02/20 08:23 Dose: 1,000 mg Documented by: Nutritional Formula (Lactose Free) (Ensure Enlive 120 Ml Liquid) 120 ml PO 4X/DAY [facility] Last Admin: 01/02/20 08:28 Dose: Not Given Documented by: Ondansetron HCl (Ondansetron 4 Mg/2 Ml Vial) 4 mg IV Q8H PRN PRN PRN Reason: NAUSEA/VOMITING Sodium Chloride (0.9% Saline Lock 10 Ml Syringe) 10 - 40 ml IV UD PRN PRN Reason: SALINE FLUSH Last Admin: 01/01/20 14:58 Dose: 10 ml Documented by: Topiramate (Topiramate 50 Mg Tablet) 50 mg PO BID [facility] Last Admin: 01/02/20 08:23 Dose: 50 mg Documented by: STROKE Vital Signs/Narrative: Vital Signs Temp Pulse Resp BP Pulse Ox Pulse Ox Pulse Ox 01/02/20 11:59 86 92 01/02/20 11:51 97.5 F L 71 18 140/66 H 92 Pulse Ox 01/02/20 11:59 90 01/02/20 11:51 Medical Necessity - Tobacco Use Smoking Status: Never smoker Tobacco Use: Non-smoker Assessment/Plan All Active Problems COVID-19 (Acute) Confusion (Acute) Acute metabolic encephalopathy (Acute) 1. Acute hypoxic respiratory insufficiency secondary to Acute COVID-19 infection Patient is currently on 4L of oxygen, continue with breathing treatments, po steroids, encourage use of incentive spirometer. Wean off oxygen for SPO2 more than 94% Patient qualified for home oxygen. 2. Acute COVID-19 infection with hypoxia Chest x-ray and CT of the chest showed groundglass opacity. No PE seen On oral Decadron. ID consulted 3. SANDEEP on probable CKD stage III, admitting creatinine was 1.48, creatinine today 0.94 No previous creatinine to compare. Creatinine today is 1.23, Patient encouraged to keep himself hydrated Repeat blood work in a.m. 4. Acute metabolic encephalopathy secondary to #1 and #2, patient is alert oriented x3 CT scan of the brain showed chronic ambulatory changes We will get MRI of the brain 5. Seizure disorder, continue on Keppra and Topamax 6. DVT prophylaxis with heparin subcu 7. Code status - DNR-CCA, no intubation Inpatient E&M: 33317 Subs Hosp L2
[2020-01-03] VITALS (13 sets, daily range): BP systolic 125–158; BP diastolic 68–78; PULSE 65–83; RESP 17–20; TEMP 36.2–36.8; O2SAT 78–94
--- NOTE | 2020-01-03 07:28 | PN_ITS ---
Patient Problems: Active and Suspected Problems COVID-19 (Acute) Confusion (Acute) Acute metabolic encephalopathy (Acute) Reason for Visit: Follow up on hypoxia/acute COVID-19 pneumonia Subjective: Patient was seen and examined. Denied any new complaints. Patient keeps taking his oxygen off. His oxygen sat on walking was 79%. MRI brain is pending. Objective: Physical exam: General: Alert, Oriented x3, Cooperative, No apparent distress, - - On 8 L of oxygen HEENT: Atraumatic, PERRLA, EOMI, Normocephalic Oral: Moist Mucosa Neck: Supple Lungs: Diminished Cardiovascular: Regular rate, Regular Rhythm, Normal S1, Normal S2 Abdomen: Bowel Sounds Present, Soft, Non Tender, Non-Distended, No Hepato- splenomegaly Extremities: No edema Skin: No rashes Musculoskeletal: No Tenderness to Palpation of Joints or Extremities Lymphatic: No Cervical, Supraclavicular, or Inguinal Adenopathy Neurological: Cranial nerves II-XII grossly intact, Neuro grossly intact Psych/Mental Status: Normal Affect, Appropriate Vitals/I&O's: Vital Signs Temp Pulse Resp BP Pulse Ox 98.0 F 82 17 147/68 H 94 01/03/20 03:40 01/03/20 03:40 01/03/20 03:40 01/03/20 03:40 01/03/20 03:40 Oxygen Flow Rate (L/min) [ 3 AMBULATION with Oxygen] Oxygen Flow Rate (L/min) 2 Oxygen Delivery Method Nasal Cannula Weight: 73.3 kg Body Mass Index (BMI) 23.4 Intake and Output for Last 24 Hours 01/01/20 01/02/20 01/03/20 23:59 23:59 22:59 Intake Total 1802.5 / 1902.5 700 / 700 100 / 100 Output Total 200 / 200 200 / 200 250 / 250 Balance 1602.5 / 1702.5 500 / 500 -150 / -150 Microbiology Past 72 Hours 12/31/19 09:32 Blood Culture (Wb) - Left Hand Blood Culture - Preliminary No growth in 48 hours. 12/31/19 09:25 Blood Culture (Wb) - Anticubital Left Blood Culture - Preliminary No growth in 48 hours. 12/31/19 09:35 Mucosa - Nose Respiratory Panel (PCR) - Final Laboratory Results 01/02/20 07:54: WBC Cancelled, Corrected WBC Cancelled, RBC Cancelled, Hgb Canc elled, Hct Cancelled, MCV Cancelled, MCH Cancelled, MCHC Cancelled, RDW Std Deviation Cancelled, RDW Coeff of Lisandro Cancelled, Plt Count Cancelled, MPV Cancelled, Immature Gran % (Auto) Cancelled, Neut % (Auto) Cancelled, Lymph % (Auto) Cancelled, [place] % (Auto) Cancelled, Eos % (Auto) Cancelled, Baso % (Auto) Cancelled, Absolute Neuts (auto) Cancelled, Absolute Lymphs (auto) Cancelled, Total Counted Cancelled, Neutrophils % (Manual) Cancelled, Band Neutrophils % Cancelled, Lymphocytes % (Manual) Cancelled, Monocytes % (Manual) Cancelled, Eosinophils % (Manual) Cancelled, Basophils % (Manual) Cancelled, Metamyelocytes % Cancelled, Myelocytes % Cancelled, Promyelocytes % Cancelled, Blast Cells % Cancelled, Plasma Cell % (Manual) Cancelled, Other Cells % Cancelled, Nucleated RBC % Cancelled, Nucleated RBCs/100 WBC Cancelled, Differential Comment Cancelled, Diff Path Review Cancelled, Hypersegmented Neuts Cancelled, Atypical Lymphocytes Cancelled, Reactive Lymphocytes Cancelled, Smudge Cells Cancelled, Toxic Granulation Cancelled, Toxic Vacuolation Cancelled, Dohle Bodies Cancelled, Xander Rods Cancelled, Platelet Estimate Cancelled, Plt Morphology Comment Cancelled, RBC Morphology Cancelled, Polychromasia Cancelled, Hypochromasia Cancelled, Poikilocytosis Cancelled, Basophilic Stippling Cancelled, Anisocytosis Cancelled, Microcytosis Cancelled, Macrocytosis Cancelled, Spherocytes Cancelled, Sickle Cells Cancelled, Target Cells Cancelled, Tear Drop Cells Cancelled, Ovalocytes Cancelled, Stomatocytes Cancelled, [place] Bodies Cancelled, [place] Cells Cancelled, Bite Cells Cancelled, Crenated Cell Cancelled, Acanthocytes (Spur) Cancelled, Rouleaux Cancelled, Schistocytes Cancelled 01/02/20 07:54: Sodium Cancelled, Potassium Cancelled, Chloride Cancelled, Carbon Dioxide Cancelled, Anion Gap Cancelled, BUN Cancelled, Creatinine Cancelled, Estim Creat Clear Calc Cancelled, Est GFR (MDRD) Af Amer Cancelled, Est GFR (MDRD) Non-Af Cancelled, BUN/Creatinine Ratio Cancelled, Glucose Cancelled, Calcium Cancelled, Total Bilirubin Cancelled, AST Cancelled, ALT Cancelled, Alkaline Phosphatase Cancelled, Total Protein Cancelled, Albumin Cancelled, Globulin Cancelled, Albumin/Globulin Ratio Cancelled 01/02/20 11:32: Sodium 142, Potassium 4.1, Chloride 114 H, Carbon Dioxide 22.0, Anion Gap 6, BUN 35 H, Creatinine 1.23, Estim Creat Clear Calc 51.11, Est GFR (MDRD) Af Amer 73, Est GFR (MDRD) Non-Af 60, BUN/Creatinine Ratio 28.5 H, Glucose 144 H, Calcium 8.7, Total Bilirubin 0.70, AST 64 H, ALT 57, Alkaline Phosphatase 86, Total Protein 7.3, Albumin 2.7 L, Globulin 4.6 H, Albumin/Globulin Ratio 0.6 L 01/02/20 11:32: WBC 14.8 H, RBC 4.87, Hgb 15.5, Hct 46.4, MCV 95.3 H, MCH 31.8, MCHC 33.4, RDW Std Deviation 46.8 H, RDW Coeff of Lisandro 13.2, Plt Count 239, MPV 10.1, Immature Gran % (Auto) 1.400 H, Neut % (Auto) 90.2 H, Lymph % (Auto) 3.6 L , [place] % (Auto) 4.7, Eos % (Auto) 0.0, Baso % (Auto) 0.1, Absolute Neuts (auto) 13.3 H, Absolute Lymphs (auto) 0.53 L, Nucleated RBC % 0, Differential Comment SCANNED Current Medications Acetaminophen (Acetaminophen 325 Mg Tablet) 650 mg PO Q6H PRN PRN PRN Reason: Pain Score 1-10/Temp > 100.7 F Al Hydroxide/Mg Hydroxide (Mag Hydrox/Al Hydrox/Simeth 30 Ml Udc) 30 ml PO Q6H PRN PRN PRN Reason: Gastric Burning Albuterol Sulfate (Albuterol Sulfate 8 Gm Inhaler (60 Puffs)) 2 puff INHALATION Q4H PRN PRN PRN Reason: SOB &/OR WHEEZING Dexamethasone (Dexamethasone 4 Mg Tablet) 6 mg PO DAILY@0800 [facility] Stop: 01/09/20 08:01 Last Admin: 01/02/20 08:23 Dose: 6 mg Documented by: Enoxaparin Sodium (Enoxaparin 30 Mg/0.3 Ml Syringe) 30 mg SC BID [facility] Last Admin: 01/02/20 21:11 Dose: 30 mg Documented by: Sodium Chloride () 250 mls @ 15 mls/hr IV .[id number] PRN PRN Reason: Saline Flush Sodium Chloride () 250 mls @ 15 mls/hr IV .[id number] PRN PRN Reason: Additional IVPB Infusion Levetiracetam (Levetiracetam 1,000 Mg Tablet) 1,000 mg PO BID [facility] Last Admin: 01/02/20 21:11 Dose: 1,000 mg Documented by: Nutritional Formula (Lactose Free) (Ensure Enlive 120 Ml Liquid) 120 ml PO 4X/DAY [facility] Last Admin: 01/02/20 21:12 Dose: Not Given Documented by: Ondansetron HCl (Ondansetron 4 Mg/2 Ml Vial) 4 mg IV Q8H PRN PRN PRN Reason: NAUSEA/VOMITING Sodium Chloride (0.9% Saline Lock 10 Ml Syringe) 10 - 40 ml IV UD PRN PRN Reason: SALINE FLUSH Last Admin: 01/01/20 14:58 Dose: 10 ml Documented by: Topiramate (Topiramate 50 Mg Tablet) 50 mg PO BID [facility] Last Admin: 01/02/20 21:11 Dose: 50 mg Documented by: STROKE Vital Signs/Narrative: Vital Signs Temp Pulse Resp BP Pulse Ox 01/03/20 03:40 98.0 F 82 17 147/68 H 94 Medical Necessity - Tobacco Use Smoking Status: Never smoker Tobacco Use: Non-smoker Assessment/Plan All Active Problems COVID-19 (Acute) Confusion (Acute) Acute metabolic encephalopathy (Acute) 1. Acute hypoxic respiratory insufficiency secondary to Acute COVID-19 infection Patient is currently on 8L of oxygen, continue with breathing treatments, po s teroids, encourage use of incentive spirometer. Wean off oxygen for SPO2 more than 94%. 2. Acute COVID-19 infection with hypoxia Chest x-ray and CT of the chest showed groundglass opacity. No PE seen On oral Decadron. ID consulted 3. SANDEEP on probable CKD stage III, admitting creatinine was 1.48, creatinine today 0.94 No previous creatinine to compare. Creatinine today is 1.23, Patient encouraged to keep himself hydrated Repeat blood work in a.m. 4. Acute metabolic encephalopathy secondary to #1 and #2, patient is alert oriented x3 CT scan of the brain showed chronic ambulatory changes MRI of the brain pending 5. Seizure disorder, continue on Keppra and Topamax 6. DVT prophylaxis with heparin subcu 7. Code status - DNR-CCA, no intubation Inpatient E&M: 66143 Subs Hosp L2
[2020-01-03] MEDS: dexAMETHasone 4 MG Tablet 6 MG PO (08:06)
[2020-01-03] MEDS: Enoxaparin 30 MG/0.3 ML Syringe SC ×2 (08:06→21:23)
[2020-01-03] MEDS: levETIRAcetam 1,000 MG Tablet 1000 MG PO ×2 (08:06→21:22)
[2020-01-03] MEDS: Topiramate 50 MG Tablet PO ×2 (08:07→21:22)
--- NOTE | 2020-01-03 15:11 | NURSING ---
pt nickolas called and upset that nursing has not called back with update. nurse rebeca updated pt condition and told her that nursing unable to call earlier. upset that pt not answering phone when she called. nursing explained that pt has not been talking on phone. nursing did explained to pt that upset and that he needed to answer the phone. sowed pt how to answer the phone.
[2020-01-04] VITALS (7 sets, daily range): BP systolic 139–160; BP diastolic 65–77; PULSE 65–88; RESP 17–19; TEMP 36.1–36.4; O2SAT 82–95
[2020-01-04 07:01] LABS: Absolute Lymphocyte Count 0.84 X10^3/uL (0.83-4.51); Absolute Neutrophil Count 11.7 X10^3/uL (2.0-7.7); Basophil# 0.04 X10^3/uL; Basophil% 0.3 % (0-1); Eosinophil# 0.02 X10^3/uL; Eosinophils% 0.2 % (0-5); Hematocrit 48.1 % (40-54); Hemoglobin 15.9 g/dL (13.0-16.5); Lymphocyte # 0.84 X10^3/ul (4.0); Lymphocyte % 6.3 % (19-41); Mean Corp Hgb Conc 33.1 g/dL (32-36); Mean Corpuscular Hgb 31.9 pg (27.0-32.0); Mean Corpuscular Volume 96.6 fL (80-94); Mean Platelet Vol. 10.1 fl (6.2-12.0); Monocyte# 0.55 X10^3/uL; Monocyte% 4.1 % (0-10); NRBC Flagged by Analyzer 0 % (0-5); Neutrophil # 11.66 X10^3/uL (2.7-7.7); Neutrophil % 87.4 % (47-70); Platelet Count 259 K/mm3 (150-450); RBC Distribution Width CV 13.4 % (11.6-14.6); RBC Distribution Width SD 47.9 fl (35.1-43.9); Red Blood Count 4.98 M/mm3 (4.6-6.2); White Blood Count 13.3 K/mm3 (4.4-11.0)
[2020-01-04 07:30] LABS: ALB/GLOB Ratio 0.5 RATIO (0.9-2.4); AST(SGOT) 57 U/L (15-37); Alanine Aminotransfer ALT/SGPT 67 U/L (16-61); Albumin, Serum 2.6 g/dL (3.2-5.0); Alkaline Phosphatase 110 U/L (45-117); Anion Gap 9 (5-15); BUN 35 mg/dL (7-18); Calcium,Total 8.5 mg/dL (8.5-10.1); Chloride 112 mmol/L (98-107); Creatinine, Serum 1.13 mg/dL (0.70-1.30); EST Glomerular Filtration Rate 67 mL/min (>60); Est Glom Filt Rate - Afr Amer 81 mL/min (>60); Globulin 4.8 g/dL (2.2-4.2); Glucose 95 mg/dL (74-106); Potassium 3.6 mmol/L (3.5-5.1); Protein, Total 7.4 g/dL (6.4-8.2); Sodium Level 143 mmol/L (136-145)
[2020-01-04 07:35] LABS: D-Dimer Quantitative (DVT/PE) 1.37 FEU/ug/m (0.27-0.49)
[2020-01-04 08:23] LABS: Procalcitonin 0.13 ng/mL (0.00-0.09)
[2020-01-04] MEDS: dexAMETHasone 4 MG Tablet 6 MG PO (10:13)
[2020-01-04] MEDS: levETIRAcetam 1,000 MG Tablet 1000 MG PO ×2 (10:14→20:32)
[2020-01-04] MEDS: Topiramate 50 MG Tablet PO ×2 (10:14→20:31)
[2020-01-04] MEDS: Enoxaparin 30 MG/0.3 ML Syringe SC ×2 (10:15→20:32)
--- NOTE | 2020-01-04 15:25 | CASEMGMT ---
RN CM Admission Note Intro role of CM to patient in room via phone. Patient slow to respond, however able to participate in assessment. the patient states he is independent at home, no care needs. He does not use ambulatory DME or oxygen @ home prior to admission. The patient states his is also positive for COVID 19 and has been at home in quarantine. Family is available to bring groceries, medications, etc and patient can arrange for transportation home. -reviewed possible need for Home Oxygen. Patient has [employer] and prefers to use [facility] or [facility] PCP: Dr. Pedroza Pharmacy: patient was not sure which pharmacy he wished to use Pharmacy benefit: yes Insurance: [employer] Living arrangements: Lives independently with his . Denies care needs. DME: none. If home oxygen is needed, prefers [facility]. -Call to [place] office and they do go to patient's address ([id number], [place], [place]) DC Plan: home on discharge. Will need oxygen testing prior to discharge at rest and ambulatory. Isidro CUMMINS RN ACM
--- NOTE | 2020-01-04 18:52 | PCM.PROGNOTE ---
Patient Problems: Active and Suspected Problems COVID-19 (Acute) Confusion (Acute) Acute metabolic encephalopathy (Acute) Subjective: Patient was seen and examined today , he was lying in bed without any respiratory distress-his oxygen cannula was on the floor, I talked to nursing about this and they stated that he takes his oxygen off frequently. We have put him on a continuous oxygen monitor at this time. Patient is requiring 6 L via nasal cannula at this time. Patient remains confused. - Physical Exam Vitals/I&O's: Vital Signs Temp Pulse Resp BP Pulse Ox 97.3 F L 75 18 156/77 H 92 01/04/20 15:10 01/04/20 15:10 01/04/20 15:10 01/04/20 15:10 01/04/20 15:10 Oxygen Flow Rate (L/min) [ 3 AMBULATION with Oxygen] Oxygen Flow Rate (L/min) 6 Oxygen Delivery Method Nasal Cannula Weight: 72.7 kg Body Mass Index (BMI) 23.4 Intake and Output for Last 24 Hours 01/03/20 01/03/20 01/04/20 00:59 23:59 23:59 Intake Total 100 / 100 Output Total 350 / 350 Balance -250 / -250 General: Alert, Cooperative, No apparent distress, Well developed HEENT: Atraumatic, PERRLA, EOMI, Normocephalic Oral: Moist Mucosa Neck: Supple, No JVD, Trachea Midline Lungs: Clear to auscultation, Normal air movement, No rhonchi, No wheeze, No rales Cardiovascular: Regular rate, Regular Rhythm, Normal S1, Normal S2, No murmurs, PMI Normal, No rub noted, No Gallop Abdomen: Bowel Sounds Present, Soft, Non Tender, Non-Distended Extremities: No clubbing, No cyanosis, No edema, Capillary Refill Less than 3 Seconds Skin: No rashes, No breakdown Musculoskeletal: No Tenderness to Palpation of Joints or Extremities Neurological: Cranial nerves II-XII grossly intact, Neuro grossly intact, Sensory exam intact to light touch and pain Psych/Mental Status: - - Patient is alert but confused, he does not answer questions appropriately-he could not tell me how long he has been sick with Covid. Microbiology Past 72 Hours 12/31/19 09:32 Blood Culture (Wb) - Left Hand Blood Culture - Preliminary No growth in 48 hours. 12/31/19 09:25 Blood Culture (Wb) - Anticubital Left Blood Culture - Preliminary No growth in 48 hours. Laboratory Results 01/04/20 06:40: WBC 13.3 H, RBC 4.98, Hgb 15.9, Hct 48.1, MCV 96.6 H, MCH 31.9, MCHC 33.1, RDW Std Deviation 47.9 H, RDW Coeff of Lisandro 13.4, Plt Count 259, MPV 10.1, Immature Gran % (Auto) 1.700 H, Neut % (Auto) 87.4 H, Lymph % (Auto) 6.3 L, [place] % (Auto) 4.1, Eos % (Auto) 0.2, Baso % (Auto) 0.3, Absolute Neuts (auto) 11.7 H, Absolute Lymphs (auto) 0.84, Nucleated RBC % 0 01/04/20 06:40: Sodium 143, Potassium 3.6, Chloride 112 H, Carbon Dioxide 22.0, Anion Gap 9, BUN 35 H, Creatinine 1.13, Estim Creat Clear Calc 55.40, Est GFR (MDRD) Af Amer 81, Est GFR (MDRD) Non-Af 67, BUN/Creatinine Ratio 31.0 H, Glucose 95, Calcium 8.5, Total Bilirubin 1.50 H, AST 57 H, ALT 67 H, Alkaline Phosphatase 110, Total Protein 7.4, Albumin 2.6 L, Globulin 4.8 H, Albumin/Globulin Ratio 0.5 L 01/04/20 06:40: D-Dimer Quant (PE/DVT) 1.37 H* 01/04/20 06:40: Procalcitonin 0.13 H Current Medications Acetaminophen (Acetaminophen 325 Mg Tablet) 650 mg PO Q6H PRN PRN PRN Reason: Pain Score 1-10/Temp > 100.7 F Al Hydroxide/Mg Hydroxide (Mag Hydrox/Al Hydrox/Simeth 30 Ml Udc) 30 ml PO Q6H PRN PRN PRN Reason: Gastric Burning Albuterol Sulfate (Albuterol Sulfate 8 Gm Inhaler (60 Puffs)) 2 puff INHALATION Q4H PRN PRN PRN Reason: SOB &/OR WHEEZING Dexamethasone (Dexamethasone 4 Mg Tablet) 6 mg PO DAILY@0800 [facility] Stop: 01/09/20 08:01 Last Admin: 01/04/20 10:13 Dose: 6 mg Documented by: Enoxaparin Sodium (Enoxaparin 30 Mg/0.3 Ml Syringe) 30 mg SC BID [facility] Last Admin: 01/04/20 10:15 Dose: 30 mg Documented by: Sodium Chloride () 250 mls @ 15 mls/hr IV .[id number] PRN PRN Reason: Saline Flush Sodium Chloride () 250 mls @ 15 mls/hr IV .[id number] PRN PRN Reason: Additional IVPB Infusion Levetiracetam (Levetiracetam 1,000 Mg Tablet) 1,000 mg PO BID [facility] Last Admin: 01/04/20 10:14 Dose: 1,000 mg Documented by: Nutritional Formula (Lactose Free) (Ensure Enlive 120 Ml Liquid) 120 ml PO 4X/DAY [facility] Last Admin: 01/04/20 15:03 Dose: 120 ml Documented by: Ondansetron HCl (Ondansetron 4 Mg/2 Ml Vial) 4 mg IV Q8H PRN PRN PRN Reason: NAUSEA/VOMITING Sodium Chloride (0.9% Saline Lock 10 Ml Syringe) 10 - 40 ml IV UD PRN PRN Reason: SALINE FLUSH Last Admin: 01/01/20 14:58 Dose: 10 ml Documented by: Topiramate (Topiramate 50 Mg Tablet) 50 mg PO BID [facility] Last Admin: 01/04/20 10:14 Dose: 50 mg Documented by: Medical Necessity - Tobacco Use Smoking Status: Never smoker Tobacco Use: Non-smoker Assessment/Plan All Active Problems COVID-19 (Acute) Confusion (Acute) Acute metabolic encephalopathy (Acute) #1 acute COVID-19 pneumonia-patient is currently on dexamethasone only at this time #2 acute hypoxic respiratory failure secondary to acute COVID-19 pneumonia-again patient was placed on a continuous oxygen monitor due to his tendency to take his oxygen off. #3 metabolic encephalopathy secondary to COVID-19 infection #4 seizure disorder Patient is a DNR CC arrest no intubation. Inpatient E&M: 11827 [facility] Hosp L2
--- NOTE | 2020-01-04 19:53 | PN.ID_ITS ---
Patient Problems: Active and Suspected Problems COVID-19 (Acute) Confusion (Acute) Acute metabolic encephalopathy (Acute) Subjective: MRI done today, no fever, sleeping this afternoon - Physical Exam Vitals/I&O's: Vital Signs Temp Pulse Resp BP Pulse Ox 97.3 F L 75 18 156/77 H 92 01/04/20 15:10 01/04/20 15:10 01/04/20 15:10 01/04/20 15:10 01/04/20 15:10 Oxygen Flow Rate (L/min) [ 3 AMBULATION with Oxygen] Oxygen Flow Rate (L/min) 6 Oxygen Delivery Method Nasal Cannula Weight: 72.7 kg Body Mass Index (BMI) 23.4 Intake and Output for Last 24 Hours 01/03/20 01/03/20 01/04/20 00:59 23:59 23:59 Intake Total 100 / 100 Output Total 350 / 350 Balance -250 / -250 General: No apparent distress, Lethargic Lungs: Diminished Cardiovascular: Regular rate, Regular Rhythm Abdomen: Soft, Non Tender, Non-Distended Skin: No rashes Microbiology Past 72 Hours 12/31/19 09:32 Blood Culture (Wb) - Left Hand Blood Culture - Preliminary No growth in 48 hours. 12/31/19 09:25 Blood Culture (Wb) - Anticubital Left Blood Culture - Preliminary No growth in 48 hours. Laboratory Results 01/04/20 06:40: WBC 13.3 H, RBC 4.98, Hgb 15.9, Hct 48.1, MCV 96.6 H, MCH 31.9, MCHC 33.1, RDW Std Deviation 47.9 H, RDW Coeff of Lisandro 13.4, Plt Count 259, MPV 10.1, Immature Gran % (Auto) 1.700 H, Neut % (Auto) 87.4 H, Lymph % (Auto) 6.3 L , [place] % (Auto) 4.1, Eos % (Auto) 0.2, Baso % (Auto) 0.3, Absolute Neuts (auto) 11.7 H, Absolute Lymphs (auto) 0.84, Nucleated RBC % 0 01/04/20 06:40: Sodium 143, Potassium 3.6, Chloride 112 H, Carbon Dioxide 22.0, Anion Gap 9, BUN 35 H, Creatinine 1.13, Estim Creat Clear Calc 55.40, Est GFR (MDRD) Af Amer 81, Est GFR (MDRD) Non-Af 67, BUN/Creatinine Ratio 31.0 H, Glucose 95, Calcium 8.5, Total Bilirubin 1.50 H, AST 57 H, ALT 67 H, Alkaline Phosphatase 110, Total Protein 7.4, Albumin 2.6 L, Globulin 4.8 H, Albumin/Globulin Ratio 0.5 L 01/04/20 06:40: D-Dimer Quant (PE/DVT) 1.37 H* 01/04/20 06:40: Procalcitonin 0.13 H Current Medications Acetaminophen (Acetaminophen 325 Mg Tablet) 650 mg PO Q6H PRN PRN PRN Reason: Pain Score 1-10/Temp > 100.7 F Al Hydroxide/Mg Hydroxide (Mag Hydrox/Al Hydrox/Simeth 30 Ml Udc) 30 ml PO Q6H PRN PRN PRN Reason: Gastric Burning Albuterol Sulfate (Albuterol Sulfate 8 Gm Inhaler (60 Puffs)) 2 puff INHALATION Q4H PRN PRN PRN Reason: SOB &/OR WHEEZING Dexamethasone (Dexamethasone 4 Mg Tablet) 6 mg PO DAILY@0800 [facility] Stop: 01/09/20 08:01 Last Admin: 01/04/20 10:13 Dose: 6 mg Documented by: Enoxaparin Sodium (Enoxaparin 30 Mg/0.3 Ml Syringe) 30 mg SC BID [facility] Last Admin: 01/04/20 10:15 Dose: 30 mg Documented by: Sodium Chloride () 250 mls @ 15 mls/hr IV .[id number] PRN PRN Reason: Saline Flush Sodium Chloride () 250 mls @ 15 mls/hr IV .[id number] PRN PRN Reason: Additional IVPB Infusion Levetiracetam (Levetiracetam 1,000 Mg Tablet) 1,000 mg PO BID [facility] Last Admin: 01/04/20 10:14 Dose: 1,000 mg Documented by: Nutritional Formula (Lactose Free) (Ensure Enlive 120 Ml Liquid) 120 ml PO 4X/DAY [facility] Last Admin: 01/04/20 15:03 Dose: 120 ml Documented by: Ondansetron HCl (Ondansetron 4 Mg/2 Ml Vial) 4 mg IV Q8H PRN PRN PRN Reason: NAUSEA/VOMITING Sodium Chloride (0.9% Saline Lock 10 Ml Syringe) 10 - 40 ml IV UD PRN PRN Reason: SALINE FLUSH Last Admin: 01/01/20 14:58 Dose: 10 ml Documented by: Topiramate (Topiramate 50 Mg Tablet) 50 mg PO BID [facility] Last Admin: 01/04/20 10:14 Dose: 50 mg Documented by: Medical Necessity - Tobacco Use Smoking Status: Never smoker Tobacco Use: Non-smoker Route of nutrition/ use of supplements: [] Nutritional Intake: [] IV Site: [] Stephens Catheter: [] - Assessment/Plan Antibiotics: [] Assessment/Plan: [] Active and Suspected Problems COVID-19 (Acute) Confusion (Acute) Acute metabolic encephalopathy (Acute) covid - on dex. Outside window for plasma or remdesivir. On lovenox prophy. CT neg for PE. MRI brain showed no stroke. On 6L O2. Will follow
--- NOTE | 2020-01-04 23:42 | CPS ---
Pt.'s liter flow increased to 7 on HFNC; meet pt.'s oxygen needs
[2020-01-05] VITALS (8 sets, daily range): BP systolic 124–144; BP diastolic 62–74; PULSE 70–85; RESP 18–22; TEMP 35.6–36.8; O2SAT 83–97
--- NOTE | 2020-01-05 06:16 | CPS ---
Pt.'s HFNC liter flow increased to 8L; meet pt.'s oxygen needs
[2020-01-05] MEDS: dexAMETHasone 4 MG Tablet 6 MG PO (08:51)
[2020-01-05] MEDS: Topiramate 50 MG Tablet PO ×2 (08:52→19:59)
[2020-01-05] MEDS: Enoxaparin 30 MG/0.3 ML Syringe SC ×2 (08:52→19:58)
[2020-01-05] MEDS: levETIRAcetam 1,000 MG Tablet 1000 MG PO ×2 (08:52→19:58)
--- NOTE | 2020-01-05 19:23 | PCM.PROGNOTE ---
Patient Problems: Active and Suspected Problems COVID-19 (Acute) Confusion (Acute) Acute metabolic encephalopathy (Acute) Subjective: Patient was seen and examined today, he is resting comfortably in bed, he remains on high flow oxygen at this time. He does not complain of any shortness of breath or chills at this time. - Physical Exam Vitals/I&O's: Vital Signs Temp Pulse Resp BP Pulse Ox 96.0 F L 85 22 H 132/63 H 95 01/05/20 14:18 01/05/20 14:18 01/05/20 14:18 01/05/20 14:18 01/05/20 14:18 Oxygen Flow Rate (L/min) [ 3 AMBULATION with Oxygen] Oxygen Flow Rate (L/min) 12 Oxygen Delivery Method Nasal Cannula Weight: 72.5 kg Body Mass Index (BMI) 23.4 Intake and Output for Last 24 Hours 01/03/20 01/04/20 01/05/20 23:59 23:59 23:59 Intake Total 300 / 300 75 / 75 Output Total 350 / 350 Balance -50 / -50 75 / 75 General: Alert, Cooperative, No apparent distress, Well developed, Well nourished HEENT: Atraumatic, PERRLA, EOMI, Normocephalic Oral: Moist Mucosa Neck: Supple, No JVD, Trachea Midline, Thyroid Normal Size and Texture Lungs: Clear to auscultation, Normal air movement, No rhonchi, No wheeze, No rales Cardiovascular: Regular rate, Regular Rhythm, Normal S1, Normal S2, No murmurs, PMI Normal, No rub noted, No Gallop Abdomen: Bowel Sounds Present, Soft, Non Tender, Non-Distended Extremities: No clubbing, No cyanosis, No edema, Capillary Refill Less than 3 Seconds Skin: No rashes, No breakdown Musculoskeletal: No Tenderness to Palpation of Joints or Extremities Neurological: Cranial nerves II-XII grossly intact, Neuro grossly intact, Sensory exam intact to light touch and pain Psych/Mental Status: Normal Affect, Appropriate Microbiology Past 72 Hours 12/31/19 09:32 Blood Culture (Wb) - Left Hand Blood Culture - Final No growth in 5 days. 12/31/19 09:25 Blood Culture (Wb) - Anticubital Left Blood Culture - Final No growth in 5 days. Current Medications Acetaminophen (Acetaminophen 325 Mg Tablet) 650 mg PO Q6H PRN PRN PRN Reason: Pain Score 1-10/Temp > 100.7 F Al Hydroxide/Mg Hydroxide (Mag Hydrox/Al Hydrox/Simeth 30 Ml Udc) 30 ml PO Q6H PRN PRN PRN Reason: Gastric Burning Albuterol Sulfate (Albuterol Sulfate 8 Gm Inhaler (60 Puffs)) 2 puff INHALATION Q4H PRN PRN PRN Reason: SOB &/OR WHEEZING Dexamethasone (Dexamethasone 4 Mg Tablet) 6 mg PO DAILY@0800 [facility] Stop: 01/09/20 08:01 Last Admin: 01/05/20 08:51 Dose: 6 mg Documented by: Enoxaparin Sodium (Enoxaparin 30 Mg/0.3 Ml Syringe) 30 mg SC BID [facility] Last Admin: 01/05/20 08:52 Dose: 30 mg Documented by: Sodium Chloride () 250 mls @ 15 mls/hr IV .[id number] PRN PRN Reason: Saline Flush Sodium Chloride () 250 mls @ 15 mls/hr IV .[id number] PRN PRN Reason: Additional IVPB Infusion Levetiracetam (Levetiracetam 1,000 Mg Tablet) 1,000 mg PO BID [facility] Last Admin: 01/05/20 08:52 Dose: 1,000 mg Documented by: Ondansetron HCl (Ondansetron 4 Mg/2 Ml Vial) 4 mg IV Q8H PRN PRN PRN Reason: NAUSEA/VOMITING Sodium Chloride (0.9% Saline Lock 10 Ml Syringe) 10 - 40 ml IV UD PRN PRN Reason: SALINE FLUSH Last Admin: 01/01/20 14:58 Dose: 10 ml Documented by: Topiramate (Topiramate 50 Mg Tablet) 50 mg PO BID [facility] Last Admin: 01/05/20 08:52 Dose: 50 mg Documented by: Medical Necessity - Tobacco Use Smoking Status: Never smoker Tobacco Use: Non-smoker Assessment/Plan All Active Problems COVID-19 (Acute) Confusion (Acute) Acute metabolic encephalopathy (Acute) #1 acute COVID-19 pneumonia-patient is currently on dexamethasone only at this time #2 acute hypoxic respiratory failure secondary to acute COVID-19 pneumonia-patient is on high flow oxygen at this time #3 metabolic encephalopathy secondary to COVID-19 infection, this appears improved today but there is still some confusion #4 seizure disorder Patient is a DNR CC arrest no intubation. Inpatient E&M: 92052 Subs Hosp L2
--- NOTE | 2020-01-05 21:02 | CPS ---
o2 increased to 12 l/m via hf per nurse for low sats
[2020-01-06] VITALS (8 sets, daily range): BP systolic 132–150; BP diastolic 62–74; PULSE 71–87; RESP 20; TEMP 35.6–36.7; O2SAT 90–96
[2020-01-06] MEDS: dexAMETHasone 4 MG Tablet 6 MG PO (09:55)
[2020-01-06] MEDS: Topiramate 50 MG Tablet PO ×2 (09:56→23:17)
[2020-01-06] MEDS: Enoxaparin 30 MG/0.3 ML Syringe SC ×2 (09:56→23:18)
[2020-01-06] MEDS: levETIRAcetam 1,000 MG Tablet 1000 MG PO ×2 (09:56→23:17)
--- NOTE | 2020-01-06 18:23 | PCM.PROGNOTE ---
Patient Problems: Active and Suspected Problems COVID-19 (Acute) Confusion (Acute) Acute metabolic encephalopathy (Acute) Subjective: She was seen and examined today, he still remains confused at times but is in no distress. Patient is still on high flow oxygen at this time, he voices no complaints of any shortness of breath chest discomfort or chills to this examiner. - Physical Exam Vitals/I&O's: Vital Signs Temp Pulse Resp BP Pulse Ox 96.0 F L 83 20 H 132/62 H 90 01/06/20 17:30 01/06/20 17:30 01/06/20 17:30 01/06/20 17:30 01/06/20 18:00 Oxygen Flow Rate (L/min) [ 3 AMBULATION with Oxygen] Oxygen Flow Rate (L/min) 15 Oxygen Delivery Method Nasal Cannula Weight: 72.6 kg Body Mass Index (BMI) 23.4 Intake and Output for Last 24 Hours 01/04/20 01/05/20 01/06/20 23:59 23:59 23:59 Intake Total 300 / 300 75 / 75 480 / 480 Output Total 350 / 350 Balance -50 / -50 75 / 75 480 / 480 General: Alert, Cooperative, No apparent distress, Well developed HEENT: Atraumatic, PERRLA, EOMI, Normocephalic Oral: Moist Mucosa Neck: Supple, No JVD, Trachea Midline, Thyroid Normal Size and Texture Lungs: Clear to auscultation, Normal air movement, No rhonchi, No wheeze Cardiovascular: Regular rate, Regular Rhythm, Normal S1, Normal S2, No murmurs, PMI Normal, No rub noted, No Gallop Abdomen: Bowel Sounds Present, Soft, Non Tender, Non-Distended Extremities: No clubbing, No cyanosis, No edema, Capillary Refill Less than 3 Seconds Skin: No rashes, No breakdown Musculoskeletal: No Tenderness to Palpation of Joints or Extremities Neurological: Cranial nerves II-XII grossly intact, Neuro grossly intact, Sensory exam intact to light touch and pain Psych/Mental Status: Flat Affect, - - Patient answers simple questions appropriately but exhibits mild confusion Microbiology Past 72 Hours 12/31/19 09:32 Blood Culture (Wb) - Left Hand Blood Culture - Final No growth in 5 days. 12/31/19 09:25 Blood Culture (Wb) - Anticubital Left Blood Culture - Final No growth in 5 days. Current Medications Acetaminophen (Acetaminophen 325 Mg Tablet) 650 mg PO Q6H PRN PRN PRN Reason: Pain Score 1-10/Temp > 100.7 F Al Hydroxide/Mg Hydroxide (Mag Hydrox/Al Hydrox/Simeth 30 Ml Udc) 30 ml PO Q6H PRN PRN PRN Reason: Gastric Burning Albuterol Sulfate (Albuterol Sulfate 8 Gm Inhaler (60 Puffs)) 2 puff INHALATION Q4H PRN PRN PRN Reason: SOB &/OR WHEEZING Dexamethasone (Dexamethasone 4 Mg Tablet) 6 mg PO DAILY@0800 [facility] Stop: 01/09/20 08:01 Last Admin: 01/06/20 09:55 Dose: 6 mg Documented by: Enoxaparin Sodium (Enoxaparin 30 Mg/0.3 Ml Syringe) 30 mg SC BID [facility] Last Admin: 01/06/20 09:56 Dose: 30 mg Documented by: Sodium Chloride () 250 mls @ 15 mls/hr IV .[id number] PRN PRN Reason: Saline Flush Sodium Chloride () 250 mls @ 15 mls/hr IV .[id number] PRN PRN Reason: Additional IVPB Infusion Levetiracetam (Levetiracetam 1,000 Mg Tablet) 1,000 mg PO BID [facility] Last Admin: 01/06/20 09:56 Dose: 1,000 mg Documented by: Ondansetron HCl (Ondansetron 4 Mg/2 Ml Vial) 4 mg IV Q8H PRN PRN PRN Reason: NAUSEA/VOMITING Sodium Chloride (0.9% Saline Lock 10 Ml Syringe) 10 - 40 ml IV UD PRN PRN Reason: SALINE FLUSH Last Admin: 01/01/20 14:58 Dose: 10 ml Documented by: Topiramate (Topiramate 50 Mg Tablet) 50 mg PO BID [facility] Last Admin: 01/06/20 09:56 Dose: 50 mg Documented by: Medical Necessity - Tobacco Use Smoking Status: Never smoker Tobacco Use: Non-smoker Assessment/Plan All Active Problems COVID-19 (Acute) Confusion (Acute) Acute metabolic encephalopathy (Acute) #1 acute COVID-19 pneumonia-patient is currently on dexamethasone only at this time #2 acute hypoxic respiratory failure secondary to acute COVID-19 pneumonia-patient is on high flow oxygen at this time #3 metabolic encephalopathy secondary to COVID-19 infection, there is still some evidence of confusion when talking with the patient #4 seizure disorder Patient is a DNR CC arrest no intubation. I will not be able to place the patient in a correction facility or anticipate discharge until the patient's oxygen requirement has dropped. Inpatient E&M: [id number] Subs Hosp L2
[2020-01-07 05:04] VITALS: BP 151/67; PULSE 74; RESP 20; TEMP 36; O2SAT 94
[2020-01-07 05:09] VITALS: O2SAT 94
--- NOTE | 2020-01-07 08:54 | PCM.PROGNOTE ---
Patient Problems: Active and Suspected Problems COVID-19 (Acute) Confusion (Acute) Acute metabolic encephalopathy (Acute) Subjective: Patient was seen and examined today, he remains confused and does not understand why he has to stay in the hospital, he does not understand what is wrong with him. Patient is still on high flow oxygen at this time. - Physical Exam Vitals/I&O's: Vital Signs Temp Pulse Resp BP Pulse Ox 96.8 F L 74 20 H 151/67 H 94 01/07/20 05:04 01/07/20 05:04 01/07/20 05:04 01/07/20 05:04 01/07/20 05:09 Oxygen Flow Rate (L/min) [ 3 AMBULATION with Oxygen] Oxygen Flow Rate (L/min) 15 Oxygen Delivery Method Nasal Cannula Weight: 70.5 kg Body Mass Index (BMI) 23.4 Intake and Output for Last 24 Hours 01/05/20 01/06/20 01/07/20 23:59 23:59 23:59 Intake Total 75 / 75 480 / 480 400 / 400 Balance 75 / 75 480 / 480 400 / 400 General: Alert, Cooperative, No apparent distress, Well developed, Well nourished, Confused HEENT: Atraumatic, PERRLA, EOMI, Normocephalic Oral: Moist Mucosa Neck: Supple, No JVD, Trachea Midline, Thyroid Normal Size and Texture Lungs: Clear to auscultation, Normal air movement, No rhonchi, No wheeze, No rales Cardiovascular: Regular rate, Regular Rhythm, Normal S1, Normal S2, No murmurs, PMI Normal, No rub noted, No Gallop Abdomen: Bowel Sounds Present, Soft, Non Tender, Non-Distended Extremities: No clubbing, No cyanosis, No edema, Capillary Refill Less than 3 Seconds Skin: No rashes, No breakdown Musculoskeletal: No Tenderness to Palpation of Joints or Extremities Neurological: Cranial nerves II-XII grossly intact, Neuro grossly intact, Sensory exam intact to light touch and pain Psych/Mental Status: Flat Affect, - - Patient has confusion but is able to answer some simple questions Microbiology Past 72 Hours 12/31/19 09:32 Blood Culture (Wb) - Left Hand Blood Culture - Final No growth in 5 days. 12/31/19 09:25 Blood Culture (Wb) - Anticubital Left Blood Culture - Final No growth in 5 days. Current Medications Acetaminophen (Acetaminophen 325 Mg Tablet) 650 mg PO Q6H PRN PRN PRN Reason: Pain Score 1-10/Temp > 100.7 F Al Hydroxide/Mg Hydroxide (Mag Hydrox/Al Hydrox/Simeth 30 Ml Udc) 30 ml PO Q6H PRN PRN PRN Reason: Gastric Burning Albuterol Sulfate (Albuterol Sulfate 8 Gm Inhaler (60 Puffs)) 2 puff INHALATION Q4H PRN PRN PRN Reason: SOB &/OR WHEEZING Dexamethasone (Dexamethasone 4 Mg Tablet) 6 mg PO DAILY@0800 [facility] Stop: 01/09/20 08:01 Last Admin: 01/06/20 09:55 Dose: 6 mg Documented by: Enoxaparin Sodium (Enoxaparin 30 Mg/0.3 Ml Syringe) 30 mg SC BID [facility] Last Admin: 01/06/20 23:18 Dose: 30 mg Documented by: Sodium Chloride () 250 mls @ 15 mls/hr IV .[id number] PRN PRN Reason: Saline Flush Sodium Chloride () 250 mls @ 15 mls/hr IV .[id number] PRN PRN Reason: Additional IVPB Infusion Levetiracetam (Levetiracetam 1,000 Mg Tablet) 1,000 mg PO BID [facility] Last Admin: 01/06/20 23:17 Dose: 1,000 mg Documented by: Ondansetron HCl (Ondansetron 4 Mg/2 Ml Vial) 4 mg IV Q8H PRN PRN PRN Reason: NAUSEA/VOMITING Sodium Chloride (0.9% Saline Lock 10 Ml Syringe) 10 - 40 ml IV UD PRN PRN Reason: SALINE FLUSH Last Admin: 01/01/20 14:58 Dose: 10 ml Documented by: Topiramate (Topiramate 50 Mg Tablet) 50 mg PO BID [facility] Last Admin: 01/06/20 23:17 Dose: 50 mg Documented by: Medical Necessity - Tobacco Use Smoking Status: Never smoker Tobacco Use: Non-smoker Assessment/Plan All Active Problems COVID-19 (Acute) Confusion (Acute) Acute metabolic encephalopathy (Acute) #1 acute COVID-19 pneumonia-patient is currently on dexamethasone only at this time #2 acute hypoxic respiratory failure secondary to acute COVID-19 pneumonia-patient is on high flow oxygen at this time #3 metabolic encephalopathy secondary to COVID-19 infection, there is still evidence of confusion when talking with the patient #4 seizure disorder Patient is a DNR CC arrest no intubation. I will not be able to place the patient in a long term facility or anticipate discharge until the patient's oxygen requirement has dropped. Inpatient E&M: [id number] Subs Hosp L2
[2020-01-07] MEDS: dexAMETHasone 4 MG Tablet 6 MG PO (08:58)
[2020-01-07] MEDS: Topiramate 50 MG Tablet PO ×2 (08:59→21:16)
[2020-01-07] MEDS: Enoxaparin 30 MG/0.3 ML Syringe SC ×2 (08:59→21:16)
[2020-01-07] MEDS: levETIRAcetam 1,000 MG Tablet 1000 MG PO ×2 (08:59→21:16)
[2020-01-07 09:47] VITALS: O2SAT 94
[2020-01-07 11:00] VITALS: BP 149/72; PULSE 80; RESP 26; TEMP 35.7; O2SAT 94
--- NOTE | 2020-01-07 11:45 | PCM.PN.ID ---
Patient Problems: Active and Suspected Problems COVID-19 (Acute) Confusion (Acute) Acute metabolic encephalopathy (Acute) Subjective: Feeling better, still high O2, no fever, no n/v/d. - Physical Exam Vitals/I&O's: Vital Signs Temp Pulse Resp BP Pulse Ox 96.8 F L 74 20 H 151/67 H 94 01/07/20 05:04 01/07/20 05:04 01/07/20 05:04 01/07/20 05:04 01/07/20 09:47 Oxygen Flow Rate (L/min) [ 3 AMBULATION with Oxygen] Oxygen Flow Rate (L/min) 15 Oxygen Delivery Method Nasal Cannula Weight: 70.5 kg Body Mass Index (BMI) 23.4 Intake and Output for Last 24 Hours 01/05/20 01/06/20 01/07/20 23:59 23:59 23:59 Intake Total 75 / 75 480 / 480 400 / 400 Balance 75 / 75 480 / 480 400 / 400 General: Alert, Cooperative, No apparent distress Lungs: Diminished Abdomen: Soft, Non Tender, Non-Distended Skin: No rashes Microbiology Past 72 Hours 12/31/19 09:32 Blood Culture (Wb) - Left Hand Blood Culture - Final No growth in 5 days. 12/31/19 09:25 Blood Culture (Wb) - Anticubital Left Blood Culture - Final No growth in 5 days. Laboratory Results 01/07/20 10:19: Troponin I < 0.015 01/07/20 10:19: B-Natriuretic Peptide Pending Current Medications Acetaminophen (Acetaminophen 325 Mg Tablet) 650 mg PO Q6H PRN PRN PRN Reason: Pain Score 1-10/Temp > 100.7 F Al Hydroxide/Mg Hydroxide (Mag Hydrox/Al Hydrox/Simeth 30 Ml Udc) 30 ml PO Q6H PRN PRN PRN Reason: Gastric Burning Albuterol Sulfate (Albuterol Sulfate 8 Gm Inhaler (60 Puffs)) 2 puff INHALATION Q4H PRN PRN PRN Reason: SOB &/OR WHEEZING Dexamethasone (Dexamethasone 4 Mg Tablet) 6 mg PO DAILY@0800 [facility] Stop: 01/09/20 08:01 Last Admin: 01/07/20 08:58 Dose: 6 mg Documented by: Enoxaparin Sodium (Enoxaparin 30 Mg/0.3 Ml Syringe) 30 mg SC BID [facility] Last Admin: 01/07/20 08:59 Dose: 30 mg Documented by: Sodium Chloride () 250 mls @ 15 mls/hr IV .[id number] PRN PRN Reason: Saline Flush Sodium Chloride () 250 mls @ 15 mls/hr IV .[id number] PRN PRN Reason: Additional IVPB Infusion Levetiracetam (Levetiracetam 1,000 Mg Tablet) 1,000 mg PO BID [facility] Last Admin: 01/07/20 08:59 Dose: 1,000 mg Documented by: Ondansetron HCl (Ondansetron 4 Mg/2 Ml Vial) 4 mg IV Q8H PRN PRN PRN Reason: NAUSEA/VOMITING Sodium Chloride (0.9% Saline Lock 10 Ml Syringe) 10 - 40 ml IV UD PRN PRN Reason: SALINE FLUSH Last Admin: 01/01/20 14:58 Dose: 10 ml Documented by: Topiramate (Topiramate 50 Mg Tablet) 50 mg PO BID [facility] Last Admin: 01/07/20 08:59 Dose: 50 mg Documented by: Medical Necessity - Tobacco Use Smoking Status: Never smoker Tobacco Use: Non-smoker Route of nutrition/ use of supplements: [] Nutritional Intake: [] IV Site: [] Stephens Catheter: [] - Assessment/Plan Antibiotics: [] Assessment/Plan: [] Active and Suspected Problems COVID-19 (Acute) Confusion (Acute) Acute metabolic encephalopathy (Acute) covid - on dex. Outside window for plasma or remdesivir. On lovenox prophy. CT neg for PE. MRI brain showed no stroke. O2 much worse now on 15L, will check BNP, consult pulm. Will follow
[2020-01-07] MEDS: Furosemide 40 MG/4 ML Vial IV (11:46)
[2020-01-07] MEDS: 0.9% Saline Lock 10 ML Syringe IV (11:48)
--- NOTE | 2020-01-07 13:05 | CON.PCM_ITS ---
Reason for Consult Date of Consultation: 01/07/20 Reason for Consultation: Acute hypoxemic respiratory failure secondary to COVID- 19 pneumonia History of Present Illness: The patient is a 79-year-old male, with a history as outlined below, who initially presented to the emergency department on December 30 with increasing shortness of breath, fatigue, cough and confusion. The patient's symptoms had been present for approximately 12-14 days. The patient does report sick contact exposure through his christian. On presentation to the emergency department, the patient was noted to be afebrile and hemodynamically stable. He was initially documented to be saturating 94% on room air. Laboratory evaluation revealed a normal white blood cell count. D-dimer was elevated to 1.72. Chemistry profile was notable for a chloride of 112 and creatinine of 1.48. Lactate was within normal limits. Tr oponin was within normal limits. Procalcitonin was noted to be 0.14. Coronavirus PCR was positive. CTA chest showed no evidence for pulmonary embolism. There was, nevertheless, evidence of bilateral groundglass opacities in a peripheral distribution. The patient was initially started on dexamethasone and admitted to the coronavirus cohort unit for further management. The patient was seen in consultation by infectious diseases. The patient was not felt to be a candidate for remdesivir or convalescent plasma. He was continued on dexamethasone accordingly. The patients hospital course has been complicated by ever increasing supplemental oxygen requirements. The patient is now requiring 15 L/min to maintain appropriate oxygen saturations. He is currently documented to be overall net +3.7 L for the hospital admission. Past Medical History Past Medical History (Chronic Problems): Chronic Problems Seizures (Chronic) CKD (chronic kidney disease) (Chronic) Allergies No Known Allergies Allergy (Verified 12/31/19 09:21) Home Medications: Ambulatory Orders Medication Instructions Recorded Aspirin 81 mg PO 12/31/19 Topiramate 1 tab PO BID 12/31/19 levETIRAcetam tablet [Keppra 1,000 mg PO BID 12/31/19 tablet] Surgical History: herniorrhaphy Psychiatric History: No pertinent psych hx Lives: Spouse/ Significant Other Smoking Status: Never smoker Tobacco Use: Non-smoker Alcohol: None Drugs: None - *Family History Maternal History Items: Diabetes Paternal History Items: Cancer - colon cancer Review of Systems Constitutional: Reports: Malaise, Fatigue Eyes: Denies: Blurred vision, Double vision HEENT: Denies: Head Aches, Sinus Congestion, Sinus Drainage Cardiovascular: Denies: Chest Pain, Palpitations Respiratory: Reports: Cough, Shortness of Breath Gastrointestinal: Denies: Abdominal Pain, Nausea, Vomiting Genitourinary: Denies: Dysuria Musculoskeletal: Denies: Joint Pain, Joint Tenderness Skin: Denies: Rash, Wounds Neurological: Denies: Numbness, Tingling, Focal weakness Psychiatric: Denies: Anxiety, Depression, Homicidal Ideations, Suicidal Ideations Hematologic/ Lymphatic: Denies: Easy Bruising, Easy Bleeding Patient Problems: Active and Suspected Problems COVID-19 (Acute) Confusion (Acute) Acute metabolic encephalopathy (Acute) Objective: The patient's most recent lab work, culture data and imaging studies have all been personally reviewed. Coronavirus PCR was positive on December 30. - Physical Exam Vitals/I&O's: Vital Signs Temp Pulse Resp BP Pulse Ox 96.2 F L 80 26 H 149/72 H 94 01/07/20 11:00 01/07/20 11:00 01/07/20 11:00 01/07/20 11:00 01/07/20 11:00 Oxygen Flow Rate (L/min) [ 3 AMBULATION with Oxygen] Oxygen Flow Rate (L/min) 15 Oxygen Delivery Method Nasal Cannula Weight: 155 lb 6.814 oz Body Mass Index (BMI) 23.4 Intake and Output for Last 24 Hours 01/05/20 01/06/20 01/07/20 23:59 23:59 23:59 Intake Total 75 / 75 480 / 480 840 / 840 Balance 75 / 75 480 / 480 840 / 840 General: Alert, Cooperative, No apparent distress HEENT: Atraumatic, Normocephalic Oral: No Gingival or Mucosal Lesions/ Ulcerations Neck: Supple, No Nodes, Trachea Midline Lungs: Diminished Cardiovascular: Regular rate, Regular Rhythm Abdomen: Bowel Sounds Present, Soft, Non Tender Extremities: No clubbing, No cyanosis, No edema Skin: No breakdown Musculoskeletal: No Tenderness to Palpation of Joints or Extremities Lymphatic: No Cervical, Supraclavicular, or Inguinal Adenopathy Neurological: Neuro grossly intact Psych/Mental Status: Flat Affect Labs (Last 48 Hours) 01/07/20 01/07/20 10:19 10:19 Troponin I < 0.015 B-Natriuretic Peptide Pending Microbiology 12/31/19 09:32 Blood Culture (Wb) - Left Hand Blood Culture - Final No growth in 5 days. 12/31/19 09:25 Blood Culture (Wb) - Anticubital Left Blood Culture - Final No growth in 5 days. Clinical Impression(s) from Imaging Studies Chest X-Ray 12/31/19 09:37 IMPRESSION: Mild increased markings in the right infrahilar region as well as in the left mid lung. This may represent early infiltrates. Follow-up is recommended. Electronically Signed: Shaun Linares, at 9:52 EDT , Service support , Chest CTA 12/31/19 10:15 IMPRESSION: Bilateral pulmonary infiltrates in the preferentially lateral distribution as described. Pneumonitis associated with Covid should be ruled out. Electronically Signed: Shaun Linares, at 11:25 EDT , Service support , Brain CT 01/01/20 16:01 IMPRESSION: Age-related and chronic changes of the brain. Electronically Signed: Greg Mueller DO at 20:34 EDT Tel [phone], Service support , Brain MRI 01/02/20 12:34 IMPRESSION: Involutional changes of the brain, as described above. No acute infarct. Electronically Signed: Aurelio Pillai MD at 14:00 EST Tel , Service support , Current Medications Acetaminophen (Acetaminophen 325 Mg Tablet) 650 mg PO Q6H PRN PRN PRN Reason: Pain Score 1-10/Temp > 100.7 F Al Hydroxide/Mg Hydroxide (Mag Hydrox/Al Hydrox/Simeth 30 Ml Udc) 30 ml PO Q6H PRN PRN PRN Reason: Gastric Burning Albuterol Sulfate (Albuterol Sulfate 8 Gm Inhaler (60 Puffs)) 2 puff INHALATION Q4H PRN PRN PRN Reason: SOB &/OR WHEEZING Dexamethasone (Dexamethasone 4 Mg Tablet) 6 mg PO DAILY@0800 [facility] Stop: 01/09/20 08:01 Last Admin: 01/07/20 08:58 Dose: 6 mg Documented by: Enoxaparin Sodium (Enoxaparin 30 Mg/0.3 Ml Syringe) 30 mg SC BID [facility] Last Admin: 01/07/20 08:59 Dose: 30 mg Documented by: Sodium Chloride () 250 mls @ 15 mls/hr IV .[id number] PRN PRN Reason: Saline Flush Sodium Chloride () 250 mls @ 15 mls/hr IV .[id number] PRN PRN Reason: Additional IVPB Infusion Levetiracetam (Levetiracetam 1,000 Mg Tablet) 1,000 mg PO BID [facility] Last Admin: 01/07/20 08:59 Dose: 1,000 mg Documented by: Ondansetron HCl (Ondansetron 4 Mg/2 Ml Vial) 4 mg IV Q8H PRN PRN PRN Reason: NAUSEA/VOMITING Sodium Chloride (0.9% Saline Lock 10 Ml Syringe) 10 - 40 ml IV UD PRN PRN Reason: SALINE FLUSH Last Admin: 01/07/20 11:48 Dose: 10 ml Documented by: Topiramate (Topiramate 50 Mg Tablet) 50 mg PO BID [facility] Last Admin: 01/07/20 08:59 Dose: 50 mg Documented by: Assessment/Plan All Active Problems COVID-19 (Acute) Confusion (Acute) Acute metabolic encephalopathy (Acute) RECOMMENDATIONS: 1. Administer IV Lasix today. 2. Potassium repletion. 3. Monitor BMP daily. 4. Continue Decadron 6 mg daily to complete 10 days of treatment. 5. Encourage incentive spirometer use and mobilize patient as tolerated. 6. Wean supplemental oxygen to maintain saturations at or above 90%. IMPRESSIONS: 1. Acute hypoxemic respiratory failure secondary to COVID-19 pneumonia The patient initially presented with Covid-like symptoms of 2 weeks duration. He was felt to be outside of the window for treatment with remdesivir or convalescent plasma. Therefore, he has been continued on Decadron with plans to complete a 10-day treatment course. CTA chest showed no evidence for pulmonary embolism. The patient has had increasing oxygen requirements over the course of his hospitalization. He is up a bit from a volume perspective and will therefore be given a trial of diuretic therapy today. Plan to continue to wean supplemental oxygen to maintain saturations at or above 90%. Encourage incentive spirometer use and mobilize patient as tolerated. 2. Unspecified seizure disorder Continue Keppra per home regimen. This note was generated with [employer] dictation software. It may contain incorrect words, spelling, and punctuation that were not noted in checking the note before signing. Inpatient E&M: 28028 Init Hosp L3
[2020-01-07 13:34] LABS: BNP,B-Type NATRIURETIC PEPTIDE 10.1 pg/mL (0-100)
--- NOTE | 2020-01-07 14:16 | PCM.NTREPORT ---
Nutrition Therapy Report - History Nutrition Services has been consulted to:: Manage nutrient details of diet order Current diet / nutrition support order:: Regular; ensure enlive 120 ml TID and fortified foods w/ pt meals. - Anthropometric Measurements Height:: 5 ft 10 in Weight:: 70.5 kg Body Mass Index (BMI):: 22.3 - Relevant Labs Relevant Labs:: WBC 13.3 K/mm3 (4.4-11.0) H 01/04/20 06:40 MCV 96.6 fL (80-94) H 01/04/20 06:40 RDW Std Deviation 47.9 fl (35.1-43.9) H 01/04/20 06:40 Immature Gran % (Auto) 1.700 % (0.0-0.9) H 01/04/20 06:40 Neut % (Auto) 87.4 % (47-70) H 01/04/20 06:40 Lymph % (Auto) 6.3 % (19-41) L 01/04/20 06:40 Absolute Neuts (auto) 11.7 X10^3/uL (2.0-7.7) H 01/04/20 06:40 Absolute Lymphs (auto) 0.53 X10^3/uL (0.83-4.51) L 01/02/20 11:32 Fibrinogen 604 mg/dl (203-444) H 12/31/19 09:25 D-Dimer Quant (PE/DVT) 1.37 FEU/ug/m (0.27-0.49) H* 01/04/20 06:40 Chloride 112 mmol/L (98-107) H 01/04/20 06:40 Carbon Dioxide 19.0 mmol/L (21.0-32.0) L 01/01/20 05:54 BUN 35 mg/dL (7-18) H 01/04/20 06:40 Creatinine 1.48 mg/dL (0.70-1.30) H 12/31/19 09:25 Est GFR (MDRD) Af Amer 59 mL/min (>60) L 12/31/19 09:25 Est GFR (MDRD) Non-Af 49 mL/min (>60) L 12/31/19 09:25 BUN/Creatinine Ratio 31.0 RATIO (10-20) H 01/04/20 06:40 Glucose 144 mg/dL (74-106) H 01/02/20 11:32 Calcium 8.0 mg/dL (8.5-10.1) L 01/01/20 05:54 Total Bilirubin 1.50 mg/dL (0.20-1.00) H 01/04/20 06:40 AST 57 U/L (15-37) H 01/04/20 06:40 ALT 67 U/L (16-61) H 01/04/20 06:40 Lactate Dehydrogenase 544 U/L (87-241) H 12/31/19 09:25 Total Creatine Kinase 377 U/L (39-308) H 12/31/19 09:25 Albumin 2.6 g/dL (3.2-5.0) L 01/04/20 06:40 Globulin 4.8 g/dL (2.2-4.2) H 01/04/20 06:40 Albumin/Globulin Ratio 0.5 RATIO (0.9-2.4) L 01/04/20 06:40 Procalcitonin 0.13 ng/mL (0.00-0.09) H 01/04/20 06:40 - Assessment Food / Nutrition-Related History:: Pt in COVID isolation precautions - pt unavailable via phone at this time. A&O x 3 w/ intermittent confusion. Per RN note pt w/ poor appetite. RDN spoke w/ RN Gillian who notes pt picks around at meals but w/ not much intake. Wt decrease of 2.2 kg since last review - total wt loss 5.1 kg since admin, indicating 6.7% wt loss x 1 week (severe). Pt w/ worsening O2 requiring 15 L NC. - Nutrition Diagnosis Problem / Etiology / Signs & Symptoms (PES):: Severe malnutrition in the context of acute illness/injury r/t inadequate oral intake and increased nutrient needs d/t increased oxygen requirements as evidenced by 6.7% wt loss x 1 week and pt w/ poor intake at meals per RN. Evidence of Malnutrition Exists:: Yes Severe PCM:: Acute Illness Moderate PCM:: Acute Illness - Nutrition Intervention Nutrition Prescription:: [id number] calories; 65-75 grams protein - Food / Nutrient Delivery Interventions Nutrition support ordered as / adjusted to:: Will continue Regular diet. Will provide ONS ensure enlive 120 ml, ensure pudding and fortified foods at pt meals. Nutrition education provided?: No - MNT Monitoring Further MNT monitoring and evaluation required?: Yes MNT Follow-up in:: 3-5 days
[2020-01-07 14:23] VITALS: BMI 22.3
[2020-01-07 20:00] VITALS: BP 121/69; PULSE 83; RESP 20; TEMP 36.3; O2SAT 97
[2020-01-08 02:28] VITALS: BP 133/70; PULSE 80; RESP 20; TEMP 35.9; O2SAT 94
[2020-01-08 08:00] VITALS: O2SAT 94
[2020-01-08 08:30] VITALS: BP 137/74; PULSE 97; RESP 16; TEMP 36.6; O2SAT 94
--- NOTE | 2020-01-08 09:12 | PCM.PROGNOTE ---
Patient Problems: Active and Suspected Problems COVID-19 (Acute) Confusion (Acute) Acute metabolic encephalopathy (Acute) Subjective: Patient was seen and examined today, he is alert, he does not complain of any shortness of breath to this examiner. Patient's oxygen requirement is still 15 L. Pulmonary medicine is now seeing the patient. Objective: General: Alert, Cooperative, No apparent distress, Well developed, Well nourished, Confused HEENT: Atraumatic, PERRLA, EOMI, Normocephalic Oral: Moist Mucosa Neck: Supple, No JVD, Trachea Midline, Thyroid Normal Size and Texture Lungs: Clear to auscultation, breath sounds are diminished, No rhonchi, No wheeze, No rales Cardiovascular: Regular rate, Regular Rhythm, Normal S1, Normal S2, No murmurs, PMI Normal, No rub noted, No Gallop Abdomen: Bowel Sounds Present, Soft, Non Tender, Non-Distended Extremities: No clubbing, No cyanosis, No edema, Capillary Refill Less than 3 Seconds Skin: No rashes, No breakdown Musculoskeletal: No Tenderness to Palpation of Joints or Extremities Neurological: Cranial nerves II-XII grossly intact, Neuro grossly intact, Sensory exam intact to light touch and pain Psych/Mental Status: Flat Affect, - - Patient has confusion but is able to answer some simple questions - Physical Exam Vitals/I&O's: Vital Signs Temp Pulse Resp BP Pulse Ox 96.6 F L 80 20 H 133/70 H 94 01/08/20 02:28 01/08/20 02:28 01/08/20 02:28 01/08/20 02:28 01/08/20 08:00 Oxygen Flow Rate (L/min) [ 3 AMBULATION with Oxygen] Oxygen Flow Rate (L/min) 15 Oxygen Delivery Method Nasal Cannula Weight: 69.2 kg Body Mass Index (BMI) 22.3 Intake and Output for Last 24 Hours 01/06/20 01/07/20 01/08/20 23:59 23:59 23:59 Intake Total 480 / 480 1040 / 1040 100 / 100 Balance 480 / 480 1040 / 1040 100 / 100 Microbiology Past 72 Hours 12/31/19 09:32 Blood Culture (Wb) - Left Hand Blood Culture - Final No growth in 5 days. 12/31/19 09:25 Blood Culture (Wb) - Anticubital Left Blood Culture - Final No growth in 5 days. Laboratory Results 01/07/20 10:19: Troponin I < 0.015 01/07/20 10:19: B-Natriuretic Peptide 10.1 Current Medications Acetaminophen (Acetaminophen 325 Mg Tablet) 650 mg PO Q6H PRN PRN PRN Reason: Pain Score 1-10/Temp > 100.7 F Al Hydroxide/Mg Hydroxide (Mag Hydrox/Al Hydrox/Simeth 30 Ml Udc) 30 ml PO Q6H PRN PRN PRN Reason: Gastric Burning Albuterol Sulfate (Albuterol Sulfate 8 Gm Inhaler (60 Puffs)) 2 puff INHALATION Q4H PRN PRN PRN Reason: SOB &/OR WHEEZING Dexamethasone (Dexamethasone 4 Mg Tablet) 6 mg PO DAILY@0800 [facility] Stop: 01/09/20 08:01 Last Admin: 01/07/20 08:58 Dose: 6 mg Documented by: Enoxaparin Sodium (Enoxaparin 30 Mg/0.3 Ml Syringe) 30 mg SC BID [facility] Last Admin: 01/07/20 21:16 Dose: 30 mg Documented by: Sodium Chloride () 250 mls @ 15 mls/hr IV .[id number] PRN PRN Reason: Saline Flush Sodium Chloride () 250 mls @ 15 mls/hr IV .[id number] PRN PRN Reason: Additional IVPB Infusion Levetiracetam (Levetiracetam 1,000 Mg Tablet) 1,000 mg PO BID [facility] Last Admin: 01/07/20 21:16 Dose: 1,000 mg Documented by: Ondansetron HCl (Ondansetron 4 Mg/2 Ml Vial) 4 mg IV Q8H PRN PRN PRN Reason: NAUSEA/VOMITING Sodium Chloride (0.9% Saline Lock 10 Ml Syringe) 10 - 40 ml IV UD PRN PRN Reason: SALINE FLUSH Last Admin: 01/07/20 11:48 Dose: 10 ml Documented by: Topiramate (Topiramate 50 Mg Tablet) 50 mg PO BID [facility] Last Admin: 01/07/20 21:16 Dose: 50 mg Documented by: Medical Necessity - Tobacco Use Smoking Status: Never smoker Tobacco Use: Non-smoker Assessment/Plan All Active Problems COVID-19 (Acute) Confusion (Acute) Acute metabolic encephalopathy (Acute) #1 acute COVID-19 pneumonia-patient is currently on dexamethasone only at this time, pulmonary medicine and infectious diseases are participating in his care #2 acute hypoxic respiratory failure secondary to acute COVID-19 pneumonia-patient is on high flow oxygen at this time #3 metabolic encephalopathy secondary to COVID-19 infection, there is still evidence of confusion when talking with the patient #4 seizure disorder Patient is a DNR CC arrest no intubation. I will not be able to place the patient in a penitentiary facility or anticipate discharge until the patient's oxygen requirement has dropped. Inpatient E&M: 52012 Subs Hosp L2
--- NOTE | 2020-01-08 09:21 | PN_ITS ---
Patient Problems: Active and Suspected Problems COVID-19 (Acute) Confusion (Acute) Acute metabolic encephalopathy (Acute) Subjective: The patient was seen and examined at the bedside this morning. Events from the last 24 hours have been reviewed. The patient is currently afebrile, hemodynamically stable and maintaining appropriate oxygen saturations on 15 L/min via nasal cannula. He does report the presence of shortness of breath to me this morning. The patient did receive a one-time dose of IV Lasix yesterday. Repeat BMP from this morning is still pending. The patient's I's and O's are inaccurate. However, his weight does appear to be decreasing. Objective: The patient's most recent lab work, culture data and imaging studies have all been personally reviewed. Coronavirus PCR was positive on December 30. - Physical Exam Vitals/I&O's: Vital Signs Temp Pulse Resp BP Pulse Ox 96.6 F L 80 20 H 133/70 H 94 01/08/20 02:28 01/08/20 02:28 01/08/20 02:28 01/08/20 02:28 01/08/20 08:00 Oxygen Flow Rate (L/min) [ 3 AMBULATION with Oxygen] Oxygen Flow Rate (L/min) 15 Oxygen Delivery Method Nasal Cannula Weight: 152 lb 8.958 oz Body Mass Index (BMI) 22.3 Intake and Output for Last 24 Hours 01/06/20 01/07/20 01/08/20 23:59 23:59 23:59 Intake Total 480 / 480 1040 / 1040 100 / 100 Balance 480 / 480 1040 / 1040 100 / 100 General: Alert, Cooperative, No apparent distress HEENT: Atraumatic, Normocephalic Oral: No Gingival or Mucosal Lesions/ Ulcerations Neck: Supple, No Nodes, Trachea Midline Lungs: Diminished Cardiovascular: Regular rate, Regular Rhythm Abdomen: Bowel Sounds Present, Soft, Non Tender Extremities: No clubbing, No cyanosis, No edema Skin: No breakdown Musculoskeletal: No Tenderness to Palpation of Joints or Extremities Lymphatic: No Cervical, Supraclavicular, or Inguinal Adenopathy Neurological: Neuro grossly intact Psych/Mental Status: Flat Affect Labs (Last 48 Hours) 01/07/20 01/07/20 10:19 10:19 Troponin I < 0.015 B-Natriuretic Peptide 10.1 Clinical Impression(s) from Imaging Studies Chest X-Ray 12/31/19 09:37 IMPRESSION: Mild increased markings in the right infrahilar region as well as in the left mid lung. This may represent early infiltrates. Follow-up is recommended. Electronically Signed: Shaun Milagros, at 9:52 EDT , Service support , Chest CTA 12/31/19 10:15 IMPRESSION: Bilateral pulmonary infiltrates in the preferentially lateral distribution as described. Pneumonitis associated with Covid should be ruled out. Electronically Signed: Shaun Milagros, at 11:25 EDT , Service support , Brain CT 01/01/20 16:01 IMPRESSION: Age-related and chronic changes of the brain. Electronically Signed: Greg Mueller DO at 20:34 EDT Tel [phone], Service support , Brain MRI 01/02/20 12:34 IMPRESSION: Involutional changes of the brain, as described above. No acute infarct. Electronically Signed: Aurelio Pillai MD at 14:00 EST Tel , Service support , Current Medications Acetaminophen (Acetaminophen 325 Mg Tablet) 650 mg PO Q6H PRN PRN PRN Reason: Pain Score 1-10/Temp > 100.7 F Al Hydroxide/Mg Hydroxide (Mag Hydrox/Al Hydrox/Simeth 30 Ml Udc) 30 ml PO Q6H PRN PRN PRN Reason: Gastric Burning Albuterol Sulfate (Albuterol Sulfate 8 Gm Inhaler (60 Puffs)) 2 puff INHALATION Q4H PRN PRN PRN Reason: SOB &/OR WHEEZING Dexamethasone (Dexamethasone 4 Mg Tablet) 6 mg PO DAILY@0800 [facility] Stop: 01/09/20 08:01 Last Admin: 01/07/20 08:58 Dose: 6 mg Documented by: Enoxaparin Sodium (Enoxaparin 30 Mg/0.3 Ml Syringe) 30 mg SC BID [facility] Last Admin: 01/07/20 21:16 Dose: 30 mg Documented by: Sodium Chloride () 250 mls @ 15 mls/hr IV .[id number] PRN PRN Reason: Saline Flush Sodium Chloride () 250 mls @ 15 mls/hr IV .[id number] PRN PRN Reason: Additional IVPB Infusion Levetiracetam (Levetiracetam 1,000 Mg Tablet) 1,000 mg PO BID [facility] Last Admin: 01/07/20 21:16 Dose: 1,000 mg Documented by: Ondansetron HCl (Ondansetron 4 Mg/2 Ml Vial) 4 mg IV Q8H PRN PRN PRN Reason: NAUSEA/VOMITING Sodium Chloride (0.9% Saline Lock 10 Ml Syringe) 10 - 40 ml IV UD PRN PRN Reason: SALINE FLUSH Last Admin: 01/07/20 11:48 Dose: 10 ml Documented by: Topiramate (Topiramate 50 Mg Tablet) 50 mg PO BID [facility] Last Admin: 01/07/20 21:16 Dose: 50 mg Documented by: Medical Necessity - Tobacco Use Smoking Status: Never smoker Tobacco Use: Non-smoker Assessment/Plan All Active Problems COVID-19 (Acute) Confusion (Acute) Acute metabolic encephalopathy (Acute) RECOMMENDATIONS: 1. Gentle diuresis as tolerated by hemodynamics and renal function. 2. Obtain BMP this morning. 3. Continue Decadron 6 mg daily to complete 10 days of treatment. 4. Encourage incentive spirometer use and mobilize patient as tolerated. 5. Wean supplemental oxygen to maintain saturations at or above 90%. IMPRESSIONS: 1. Acute hypoxemic respiratory failure secondary to COVID-19 pneumonia The patient initially presented with Covid-like symptoms of 2 weeks duration. He was felt to be outside of the window for treatment with remdesivir or convalescent plasma. Therefore, he has been continued on Decadron with plans to complete a 10-day treatment course. CTA chest showed no evidence for pulmonary embolism. The patient has had increasing oxygen requirements over the course of his hospitalization. He is up a bit from a volume perspective and will therefore be given a trial of diuretic therapy. Plan to continue to wean supplemental oxygen to maintain saturations at or above 90%. Encourage incentive spirometer use and mobilize patient as tolerated. Check BMP this morning. 2. Unspecified seizure disorder Continue Keppra per home regimen. This note was generated with [employer] dictation software. It may contain incorrect words, spelling, and punctuation that were not noted in checking the note before signing. Inpatient E&M: 67304 Subs Hosp L3
[2020-01-08] MEDS: Enoxaparin 30 MG/0.3 ML Syringe SC ×2 (09:44→20:45)
[2020-01-08] MEDS: levETIRAcetam 1,000 MG Tablet 1000 MG PO ×2 (09:44→20:45)
[2020-01-08] MEDS: Topiramate 50 MG Tablet PO ×2 (09:44→20:45)
[2020-01-08] MEDS: dexAMETHasone 4 MG Tablet 6 MG PO (09:45)
[2020-01-08] MEDS: Furosemide 40 MG/4 ML Vial IV (11:13)
[2020-01-08] MEDS: 0.9% Saline Lock 10 ML Syringe IV (11:14)
[2020-01-08 14:25] VITALS: BP 128/70; PULSE 94; RESP 18; TEMP 36.7; O2SAT 95
--- NOTE | 2020-01-08 16:12 | PN.ID_ITS ---
Patient Problems: Active and Suspected Problems COVID-19 (Acute) Confusion (Acute) Acute metabolic encephalopathy (Acute) Subjective: Feeling fine, wants to be able to leave. No fever - Physical Exam Vitals/I&O's: Vital Signs Temp Pulse Resp BP Pulse Ox 98.0 F 94 18 128/70 H 95 01/08/20 14:25 01/08/20 14:25 01/08/20 14:25 01/08/20 14:25 01/08/20 14:25 Oxygen Flow Rate (L/min) [ 3 AMBULATION with Oxygen] Oxygen Flow Rate (L/min) 15 Oxygen Delivery Method Nasal Cannula Weight: 69.2 kg Body Mass Index (BMI) 22.3 Intake and Output for Last 24 Hours 01/06/20 01/07/20 01/08/20 23:59 23:59 23:59 Intake Total 480 / 480 1040 / 1040 100 / 100 Balance 480 / 480 1040 / 1040 100 / 100 General: Alert, Cooperative, No apparent distress Lungs: Diminished Cardiovascular: Regular rate, Regular Rhythm Abdomen: Soft, Non Tender, Non-Distended Skin: No rashes Microbiology Past 72 Hours 12/31/19 09:32 Blood Culture (Wb) - Left Hand Blood Culture - Final No growth in 5 days. 12/31/19 09:25 Blood Culture (Wb) - Anticubital Left Blood Culture - Final No growth in 5 days. Current Medications Acetaminophen (Acetaminophen 325 Mg Tablet) 650 mg PO Q6H PRN PRN PRN Reason: Pain Score 1-10/Temp > 100.7 F Al Hydroxide/Mg Hydroxide (Mag Hydrox/Al Hydrox/Simeth 30 Ml Udc) 30 ml PO Q6H PRN PRN PRN Reason: Gastric Burning Albuterol Sulfate (Albuterol Sulfate 8 Gm Inhaler (60 Puffs)) 2 puff INHALATION Q4H PRN PRN PRN Reason: SOB &/OR WHEEZING Dexamethasone (Dexamethasone 4 Mg Tablet) 6 mg PO DAILY@0800 [facility] Stop: 01/09/20 08:01 Last Admin: 01/08/20 09:45 Dose: 6 mg Documented by: Enoxaparin Sodium (Enoxaparin 30 Mg/0.3 Ml Syringe) 30 mg SC BID [facility] Last Admin: 01/08/20 09:44 Dose: 30 mg Documented by: Sodium Chloride () 250 mls @ 15 mls/hr IV .[id number] PRN PRN Reason: Saline Flush Sodium Chloride () 250 mls @ 15 mls/hr IV .[id number] PRN PRN Reason: Additional IVPB Infusion Levetiracetam (Levetiracetam 1,000 Mg Tablet) 1,000 mg PO BID [facility] Last Admin: 01/08/20 09:44 Dose: 1,000 mg Documented by: Ondansetron HCl (Ondansetron 4 Mg/2 Ml Vial) 4 mg IV Q8H PRN PRN PRN Reason: NAUSEA/VOMITING Sodium Chloride (0.9% Saline Lock 10 Ml Syringe) 10 - 40 ml IV UD PRN PRN Reason: SALINE FLUSH Last Admin: 01/08/20 11:14 Dose: 10 ml Documented by: Topiramate (Topiramate 50 Mg Tablet) 50 mg PO BID [facility] Last Admin: 01/08/20 09:44 Dose: 50 mg Documented by: Medical Necessity - Tobacco Use Smoking Status: Never smoker Tobacco Use: Non-smoker Route of nutrition/ use of supplements: [] Nutritional Intake: [] IV Site: [] Stephens Catheter: [] - Assessment/Plan Antibiotics: [] Assessment/Plan: [] Active and Suspected Problems COVID-19 (Acute) Confusion (Acute) Acute metabolic encephalopathy (Acute) covid - on dex. Outside window for plasma or remdesivir. On lovenox prophy. CT neg for PE. MRI brain showed no stroke. O2 stable at 15L. Feeling fine otherwise. Will follow
--- NOTE | 2020-01-08 18:29 | NURSING ---
called , ADA, with pt krysten.
[2020-01-08 20:39] VITALS: BP 125/79; PULSE 67; RESP 18; TEMP 36.2; O2SAT 94
[2020-01-09] VITALS (8 sets, daily range): BP systolic 116–151; BP diastolic 70–78; PULSE 71–87; RESP 18–24; TEMP 35.8–36.8; O2SAT 91–98
--- NOTE | 2020-01-09 05:57 | NURSING ---
Pt's hands and fingers are cool to touch; pulse ox reading 85-88% on monitor at nurse's station. Warm blanket applied to pt's hands, and pulse ox assessed at bedside reading 97% on 15L oxygen via high flow nasal cannula. Will continue to monitor.
[2020-01-09] MEDS: Enoxaparin 30 MG/0.3 ML Syringe SC ×2 (08:32→21:00)
[2020-01-09] MEDS: levETIRAcetam 1,000 MG Tablet 1000 MG PO ×2 (08:33→21:00)
[2020-01-09] MEDS: Topiramate 50 MG Tablet PO ×2 (08:33→21:00)
[2020-01-09] MEDS: dexAMETHasone 4 MG Tablet 6 MG PO (08:33)
[2020-01-09 09:37] LABS: BUN 58 mg/dL (7-18); BUN/Creat Ratio 41.7 RATIO (10-20); Calcium,Total 9.3 mg/dL (8.5-10.1); Chloride 111 mmol/L (98-107); Creatinine, Serum 1.39 mg/dL (0.70-1.30); EST Glomerular Filtration Rate 52 mL/min (>60); Est Glom Filt Rate - Afr Amer 63 mL/min (>60); Estimated Creatinine Clearance 42.49 ml/min; Glucose 117 mg/dL (74-106); Potassium 3.9 mmol/L (3.5-5.1); Sodium Level 140 mmol/L (136-145)
[2020-01-09 09:38] LABS: Anion Gap 6 (5-15)
--- NOTE | 2020-01-09 13:34 | PCM.PROGNOTE ---
Patient Problems: Active and Suspected Problems COVID-19 (Acute) Confusion (Acute) Acute metabolic encephalopathy (Acute) Subjective: Patient was seen and examined today, he is still on high flow oxygen, I explained to him that he would not be able to be discharged unless his oxygen requirement decreased. He seemed to understand this, but the patient has a baseline dementia so I am not sure how well he is processing this. I talked to nursing and we will attempt to wean his oxygen if possible. Objective: General: Alert, Cooperative, No apparent distress, Well developed, Well nourished, Confused HEENT: Atraumatic, PERRLA, EOMI, Normocephalic Oral: Moist Mucosa Neck: Supple, No JVD, Trachea Midline, Thyroid Normal Size and Texture Lungs: Clear to auscultation, breath sounds are diminished, No rhonchi, No wheeze, No rales Cardiovascular: Regular rate, Regular Rhythm, Normal S1, Normal S2, No murmurs, PMI Normal, No rub noted, No Gallop Abdomen: Bowel Sounds Present, Soft, Non Tender, Non-Distended Extremities: No clubbing, No cyanosis, No edema, Capillary Refill Less than 3 Seconds Skin: No rashes, No breakdown Musculoskeletal: No Tenderness to Palpation of Joints or Extremities Neurological: Cranial nerves II-XII grossly intact, Neuro grossly intact, Sensory exam intact to light touch and pain Psych/Mental Status: Flat Affect, - - Patient has some confusion but is able to answer some simple questions - Physical Exam Vitals/I&O's: Vital Signs Temp Pulse Resp BP Pulse Ox 96.6 F L 87 24 H 151/78 H 96 01/09/20 09:52 01/09/20 09:52 01/09/20 09:52 01/09/20 09:52 01/09/20 09:52 Oxygen Flow Rate (L/min) [ 3 AMBULATION with Oxygen] Oxygen Flow Rate (L/min) 12 Oxygen Delivery Method Nasal Cannula Weight: 68.583 kg Body Mass Index (BMI) 22.3 Intake and Output for Last 24 Hours 01/07/20 01/08/20 01/09/20 23:59 23:59 23:59 Intake Total 1040 / 1040 400 / 400 Balance 1040 / 1040 400 / 400 Laboratory Results 01/09/20 08:38: Sodium 140, Potassium 3.9, Chloride 111 H, Carbon Dioxide 23.0, Anion Gap 6, BUN 58 H, Creatinine 1.39 H, Estim Creat Clear Calc 42.49, Est GFR (MDRD) Af Amer 63, Est GFR (MDRD) Non-Af 52 L, BUN/Creatinine Ratio 41.7 H, Glucose 117 H, Calcium 9.3 Current Medications Acetaminophen (Acetaminophen 325 Mg Tablet) 650 mg PO Q6H PRN PRN PRN Reason: Pain Score 1-10/Temp > 100.7 F Al Hydroxide/Mg Hydroxide (Mag Hydrox/Al Hydrox/Simeth 30 Ml Udc) 30 ml PO Q6H PRN PRN PRN Reason: Gastric Burning Albuterol Sulfate (Albuterol Sulfate 8 Gm Inhaler (60 Puffs)) 2 puff INHALATION Q4H PRN PRN PRN Reason: SOB &/OR WHEEZING Enoxaparin Sodium (Enoxaparin 30 Mg/0.3 Ml Syringe) 30 mg SC BID [facility] Last Admin: 01/09/20 08:32 Dose: 30 mg Documented by: Sodium Chloride () 250 mls @ 15 mls/hr IV .[id number] PRN PRN Reason: Saline Flush Sodium Chloride () 250 mls @ 15 mls/hr IV .[id number] PRN PRN Reason: Additional IVPB Infusion Levetiracetam (Levetiracetam 1,000 Mg Tablet) 1,000 mg PO BID [facility] Last Admin: 01/09/20 08:33 Dose: 1,000 mg Documented by: Ondansetron HCl (Ondansetron 4 Mg/2 Ml Vial) 4 mg IV Q8H PRN PRN PRN Reason: NAUSEA/VOMITING Sodium Chloride (0.9% Saline Lock 10 Ml Syringe) 10 - 40 ml IV UD PRN PRN Reason: SALINE FLUSH Last Admin: 01/08/20 11:14 Dose: 10 ml Documented by: Topiramate (Topiramate 50 Mg Tablet) 50 mg PO BID [facility] Last Admin: 01/09/20 08:33 Dose: 50 mg Documented by: Medical Necessity - Tobacco Use Smoking Status: Never smoker Tobacco Use: Non-smoker Assessment/Plan All Active Problems COVID-19 (Acute) Confusion (Acute) Acute metabolic encephalopathy (Acute) #1 acute COVID-19 pneumonia-patient is currently on dexamethasone only at this time, pulmonary medicine and infectious diseases are participating in his care #2 acute hypoxic respiratory failure secondary to acute COVID-19 pneumonia-patient is on high flow oxygen at this time, an attempt will be made to wean the oxygen if possible #3 metabolic encephalopathy secondary to COVID-19 infection , there is still evidence of confusion when talking with the patient #4 seizure disorder Patient is a DNR CC arrest no intubation. I will not be able to place the patient in a care home facility or anticipate discharge until the patient's oxygen requirement has dropped. Inpatient E&M: 42188 Subs Hosp L2
--- NOTE | 2020-01-09 15:25 | NURSING ---
Assisted in helping pt use his I.S. This nurse also weaned oxygen down to 10 L Nc from 12 L NC. Will monitor.
[2020-01-09] MEDS: 0.9% Saline Lock 10 ML Syringe IV (15:28)
--- NOTE | 2020-01-09 17:08 | NURSING ---
THis nurse informed Dr. Silver that pt had crackles to matt bases posteriorly this morning and this afternoon but pt still being able to wean oxygen. Dr. Burkett orders from Dr. Silver.
[2020-01-10 02:38] VITALS: BP 148/77; PULSE 71; RESP 18; TEMP 36.9; O2SAT 94
--- NOTE | 2020-01-10 07:03 | PN_ITS ---
Patient Problems: Active and Suspected Problems COVID-19 (Acute) Confusion (Acute) Acute metabolic encephalopathy (Acute) Subjective: The patient was seen and examined at the bedside this morning. Events from the last 24 hours have been reviewed. The patient is currently afebrile, hemodynamically stable and maintaining appropriate oxygen saturations on 10 L/min via nasal cannula. The patient's oxygenation status is improving, albeit slowly. The patient denies any shortness of breath this morning. Objective: The patient's most recent lab work, culture data and imaging studies have all been personally reviewed. Coronavirus PCR was positive on December 30. - Physical Exam Vitals/I&O's: Vital Signs Temp Pulse Resp BP Pulse Ox 98.4 F 71 18 148/77 H 94 01/10/20 02:38 01/10/20 02:38 01/10/20 02:38 01/10/20 02:38 01/10/20 02:38 Oxygen Flow Rate (L/min) [ 3 AMBULATION with Oxygen] Oxygen Flow Rate (L/min) 10 Oxygen Delivery Method Nasal Cannula Weight: 152 lb 8.958 oz Body Mass Index (BMI) 22.3 Intake and Output for Last 24 Hours 01/08/20 01/09/20 01/10/20 23:59 23:59 23:59 Intake Total 400 / 400 240 / 240 Output Total 250 / 250 Balance 400 / 400 240 / -10 -250 / -250 General: Alert, Cooperative, No apparent distress HEENT: Atraumatic, PERRLA, Normocephalic Oral: Moist Mucosa, No Gingival or Mucosal Lesions/ Ulcerations Neck: Supple, No Nodes, Trachea Midline Lungs: No rhonchi, No wheeze, No rales, Diminished Cardiovascular: Regular rate, Regular Rhythm Abdomen: Bowel Sounds Present, Soft, Non Tender Extremities: No clubbing, No cyanosis, No edema Skin: No breakdown Musculoskeletal: No Tenderness to Palpation of Joints or Extremities Lymphatic: No Cervical, Supraclavicular, or Inguinal Adenopathy Neurological: Neuro grossly intact Psych/Mental Status: Normal Affect, Appropriate Labs (Last 48 Hours) 01/09/20 01/10/20 08:38 06:46 Sodium 140 Pending Potassium 3.9 Pending Chloride 111 H Pending Carbon Dioxide 23.0 Pending Anion Gap 6 Pending BUN 58 H Pending Creatinine 1.39 H Pending Estim Creat Clear Calc 42.49 Est GFR (MDRD) Af Amer 63 Pending Est GFR (MDRD) Non-Af 52 L Pending BUN/Creatinine Ratio 41.7 H Pending Glucose 117 H Pending Calcium 9.3 Pending Clinical Impression(s) from Imaging Studies Chest X-Ray 12/31/19 09:37 IMPRESSION: Mild increased markings in the right infrahilar region as well as in the left mid lung. This may represent early infiltrates. Follow-up is recommended. Electronically Signed: Shaun Linares, at 9:52 EDT , Service support , Chest CTA 12/31/19 10:15 IMPRESSION: Bilateral pulmonary infiltrates in the preferentially lateral distribution as described. Pneumonitis associated with Covid should be ruled out. Electronically Signed: Shaun Linares, at 11:25 EDT , Service support , Brain CT 01/01/20 16:01 IMPRESSION: Age-related and chronic changes of the brain. Electronically Signed: Greg Mueller DO at 20:34 EDT Tel [phone], Service support , Brain MRI 01/02/20 12:34 IMPRESSION: Involutional changes of the brain, as described above. No acute infarct. Electronically Signed: Aurelio Pillai MD at 14:00 EST Tel , Service support , Current Medications Acetaminophen (Acetaminophen 325 Mg Tablet) 650 mg PO Q6H PRN PRN PRN Reason: Pain Score 1-10/Temp > 100.7 F Al Hydroxide/Mg Hydroxide (Mag Hydrox/Al Hydrox/Simeth 30 Ml Udc) 30 ml PO Q6H PRN PRN PRN Reason: Gastric Burning Albuterol Sulfate (Albuterol Sulfate 8 Gm Inhaler (60 Puffs)) 2 puff INHALATION Q4H PRN PRN PRN Reason: SOB &/OR WHEEZING Enoxaparin Sodium (Enoxaparin 30 Mg/0.3 Ml Syringe) 30 mg SC BID [facility] Last Admin: 01/09/20 21:00 Dose: 30 mg Documented by: Sodium Chloride () 250 mls @ 15 mls/hr IV .[id number] PRN PRN Reason: Saline Flush Sodium Chloride () 250 mls @ 15 mls/hr IV .[id number] PRN PRN Reason: Additional IVPB Infusion Levetiracetam (Levetiracetam 1,000 Mg Tablet) 1,000 mg PO BID [facility] Last Admin: 01/09/20 21:00 Dose: 1,000 mg Documented by: Ondansetron HCl (Ondansetron 4 Mg/2 Ml Vial) 4 mg IV Q8H PRN PRN PRN Reason: NAUSEA/VOMITING Sodium Chloride (0.9% Saline Lock 10 Ml Syringe) 10 - 40 ml IV UD PRN PRN Reason: SALINE FLUSH Last Admin: 01/09/20 15:28 Dose: 10 ml Documented by: Topiramate (Topiramate 50 Mg Tablet) 50 mg PO BID [facility] Last Admin: 01/09/20 21:00 Dose: 50 mg Documented by: Medical Necessity - Tobacco Use Smoking Status: Never smoker Tobacco Use: Non-smoker Assessment/Plan All Active Problems COVID-19 (Acute) Confusion (Acute) Acute metabolic encephalopathy (Acute) RECOMMENDATIONS: 1. Gentle intermittent diuresis as tolerated by hemodynamics and renal function. 2. Encourage incentive spirometer use and mobilize patient as tolerated. 3. Wean supplemental oxygen to maintain saturations at or above 90%. 4. Encourage incentive spirometer use and mobilize patient as tolerated. IMPRESSIONS: 1. Acute hypoxemic respiratory failure secondary to COVID-19 pneumonia The patient initially presented with Covid-like symptoms of 2 weeks duration. He was felt to be outside of the window for treatment with remdesivir or convalescent plasma. The patient subsequently completed a treatment course of Decadron. CTA chest showed no evidence for pulmonary embolism. Plan to continue intermittent diuresis as tolerated by hemodynamics and renal function. Oxygenation status is slowly improving. Continue to encourage incentive spir ometer use and mobilize patient as tolerated. 2. Unspecified seizure disorder Continue Keppra per home regimen. This note was generated with [employer] software. It may contain incorrect words, spelling, and punctuation that were not noted in checking the note before signing. Inpatient E&M: 36741 Subs Hosp L2
[2020-01-10 07:21] LABS: Anion Gap 6 (5-15); BUN 47 mg/dL (7-18); BUN/Creat Ratio 43.1 RATIO (10-20); Calcium,Total 8.6 mg/dL (8.5-10.1); Chloride 109 mmol/L (98-107); Creatinine, Serum 1.09 mg/dL (0.70-1.30); EST Glomerular Filtration Rate 69 mL/min (>60); Est Glom Filt Rate - Afr Amer 84 mL/min (>60); Estimated Creatinine Clearance 54.67 ml/min; Glucose 94 mg/dL (74-106); Potassium 3.9 mmol/L (3.5-5.1); Sodium Level 138 mmol/L (136-145)
[2020-01-10 08:34] VITALS: O2SAT 90
--- NOTE | 2020-01-10 09:30 | PCM.PROGNOTE ---
Patient Problems: Active and Suspected Problems COVID-19 (Acute) Confusion (Acute) Acute metabolic encephalopathy (Acute) Subjective: Patient was seen and examined today, his oxygen requirement has improved to 10 L, patient asked me when he can go home, I explained again that his oxygen has to be at a lower setting for me to discharge him home. Objective: General: Alert, Cooperative, No apparent distress, Well developed, Well nourished, Confused HEENT: Atraumatic, PERRLA, EOMI, Normocephalic Oral: Moist Mucosa Neck: Supple, No JVD, Trachea Midline, Thyroid Normal Size and Texture Lungs: Clear to auscultation, breath sounds are diminished, No rhonchi, No wheeze, No rales Cardiovascular: Regular rate, Regular Rhythm, Normal S1, Normal S2, No murmurs, PMI Normal, No rub noted, No Gallop Abdomen: Bowel Sounds Present, Soft, Non Tender, Non-Distended Extremities: No clubbing, No cyanosis, No edema, Capillary Refill Less than 3 Seconds Skin: No rashes, No breakdown Musculoskeletal: No Tenderness to Palpation of Joints or Extremities Neurological: Cranial nerves II-XII grossly intact, Neuro grossly intact, Sensory exam intact to light touch and pain Psych/Mental Status: Flat Affect, - - Patient has some confusion but is able to answer some simple questions - Physical Exam Vitals/I&O's: Vital Signs Temp Pulse Resp BP Pulse Ox 98.4 F 71 18 148/77 H 90 01/10/20 02:38 01/10/20 02:38 01/10/20 02:38 01/10/20 02:38 01/10/20 08:34 Oxygen Flow Rate (L/min) [ 3 AMBULATION with Oxygen] Oxygen Flow Rate (L/min) 10 Oxygen Delivery Method Nasal Cannula Weight: 69.2 kg Body Mass Index (BMI) 22.3 Intake and Output for Last 24 Hours 01/08/20 01/09/20 01/10/20 23:59 23:59 23:59 Intake Total 400 / 400 240 / 240 Output Total 250 / 250 Balance 400 / 400 240 / -10 -250 / -250 Laboratory Results 01/09/20 08:38: Sodium 140, Potassium 3.9, Chloride 111 H, Carbon Dioxide 23.0, Anion Gap 6, BUN 58 H, Creatinine 1.39 H, Estim Creat Clear Calc 42.49, Est GFR (MDRD) Af Amer 63, Est GFR (MDRD) Non-Af 52 L, BUN/Creatinine Ratio 41.7 H, Glucose 117 H, Calcium 9.3 01/10/20 06:46: Sodium 138, Potassium 3.9, Chloride 109 H, Carbon Dioxide 23.0, Anion Gap 6, BUN 47 H, Creatinine 1.09, Estim Creat Clear Calc 54.67, Est GFR (MDRD) Af Amer 84, Est GFR (MDRD) Non-Af 69, BUN/Creatinine Ratio 43.1 H, Glucose 94, Calcium 8.6 Current Medications Acetaminophen (Acetaminophen 325 Mg Tablet) 650 mg PO Q6H PRN PRN PRN Reason: Pain Score 1-10/Temp > 100.7 F Al Hydroxide/Mg Hydroxide (Mag Hydrox/Al Hydrox/Simeth 30 Ml Udc) 30 ml PO Q6H PRN PRN PRN Reason: Gastric Burning Albuterol Sulfate (Albuterol Sulfate 8 Gm Inhaler (60 Puffs)) 2 puff INHALATION Q4H PRN PRN PRN Reason: SOB &/OR WHEEZING Enoxaparin Sodium (Enoxaparin 30 Mg/0.3 Ml Syringe) 30 mg SC BID [facility] Last Admin: 01/09/20 21:00 Dose: 30 mg Documented by: Sodium Chloride () 250 mls @ 15 mls/hr IV .[id number] PRN PRN Reason: Saline Flush Sodium Chloride () 250 mls @ 15 mls/hr IV .[id number] PRN PRN Reason: Additional IVPB Infusion Levetiracetam (Levetiracetam 1,000 Mg Tablet) 1,000 mg PO BID [facility] Last Admin: 01/09/20 21:00 Dose: 1,000 mg Documented by: Ondansetron HCl (Ondansetron 4 Mg/2 Ml Vial) 4 mg IV Q8H PRN PRN PRN Reason: NAUSEA/VOMITING Sodium Chloride (0.9% Saline Lock 10 Ml Syringe) 10 - 40 ml IV UD PRN PRN Reason: SALINE FLUSH Last Admin: 01/09/20 15:28 Dose: 10 ml Documented by: Topiramate (Topiramate 50 Mg Tablet) 50 mg PO BID [facility] Last Admin: 01/09/20 21:00 Dose: 50 mg Documented by: Medical Necessity - Tobacco Use Smoking Status: Never smoker Tobacco Use: Non-smoker Assessment/Plan All Active Problems COVID-19 (Acute) Confusion (Acute) Acute metabolic encephalopathy (Acute) #1 acute COVID-19 pneumonia-patient is currently on dexamethasone only at this time, pulmonary medicine and infectious diseases are participating in his care #2 acute hypoxic respiratory failure secondary to acute COVID-19 pneumonia-patient is on high flow oxygen at this time, an attempt will be made to wean the oxygen if possible again today #3 metabolic encephalopathy secondary to COVID-19 infection , there is still evidence of confusion when talking with the patient #4 seizure disorder Patient is a DNR CC arrest no intubation. I will not be able to place the patient in a nursing home facility or anticipate discharge until the patient's oxygen requirement has dropped. Inpatient E&M: 79839 Subs Hosp L2
[2020-01-10] MEDS: Enoxaparin 30 MG/0.3 ML Syringe SC ×2 (09:50→20:33)
[2020-01-10] MEDS: levETIRAcetam 1,000 MG Tablet 1000 MG PO ×2 (09:51→20:33)
[2020-01-10] MEDS: Topiramate 50 MG Tablet PO ×2 (09:51→20:33)
[2020-01-10 09:52] VITALS: BP 141/78; PULSE 78; RESP 20; TEMP 35.9; O2SAT 94
[2020-01-10 16:00] VITALS: BP 156/74; PULSE 86; RESP 20; TEMP 35.5; O2SAT 92
[2020-01-10] MEDS: 0.9% Saline Lock 10 ML Syringe IV (16:04)
[2020-01-10 18:00] VITALS: BP 126/69; PULSE 76; RESP 21; TEMP 36.6; O2SAT 100
[2020-01-10 20:30] VITALS: BP 136/83; PULSE 94; RESP 18; TEMP 36.9; O2SAT 94
[2020-01-11] VITALS (7 sets, daily range): BP systolic 128–144; BP diastolic 72–82; PULSE 86–92; RESP 16–18; TEMP 35.6–36.4; O2SAT 75–98
--- NOTE | 2020-01-11 09:25 | CASEMGMT ---
VIOLETA BRIGGS Note- updated by physician and charge nurse that patient will be discharged today. Home oxygen testing needs completed, then CM can send script and documentation to [facility]. Portable tank will be delivered to [facility]. is requesting transportation be set up for home and cost is not an issue. Isidro HOLLEYN RN ACM
[2020-01-11] MEDS: Enoxaparin 30 MG/0.3 ML Syringe SC ×2 (09:29→20:27)
[2020-01-11] MEDS: Topiramate 50 MG Tablet PO ×2 (09:30→20:26)
[2020-01-11] MEDS: levETIRAcetam 1,000 MG Tablet 1000 MG PO ×2 (09:30→20:26)
--- NOTE | 2020-01-11 12:46 | CASEMGMT ---
RN CM Note: patient not able to discharge today due to high oxygen needs on ambulation. Will continue to follow for discharge. Isidro CUMMINS RN ACM
--- NOTE | 2020-01-11 15:15 | PN_ITS ---
Patient Problems: Active and Suspected Problems COVID-19 (Acute) Confusion (Acute) Acute metabolic encephalopathy (Acute) Subjective: Patient did okay overnight. Patient has remained on normal nasal cannula oxygen, but did require 10 L nasal cannula with ambulation. Patient reports his cough is improved. Patient denies any nausea, vomiting or diarrhea. - Physical Exam Vitals/I&O's: Vital Signs Temp Pulse Resp BP Pulse Ox 36.1 C L 92 18 141/76 H 93 01/11/20 13:56 01/11/20 13:56 01/11/20 13:56 01/11/20 13:56 01/11/20 13:56 Oxygen Flow Rate (L/min) [ 10 AMBULATION with Oxygen] Oxygen Flow Rate (L/min) 3 Oxygen Delivery Method Nasal Cannula Weight: 69.1 kg Body Mass Index (BMI) 22.3 Intake and Output for Last 24 Hours 01/09/20 01/10/20 01/11/20 23:59 23:59 23:59 Intake Total 240 / 240 600 / 600 Output Total 850 / 850 Balance 240 / -10 -250 / -250 General: Alert, Oriented x3, Cooperative, No apparent distress, Well developed, Well nourished, - - Appears stated age. Speaking in full sentences. HEENT: Atraumatic, PERRLA, EOMI, Normocephalic, - - Nasal cannula in place Oral: Moist Mucosa, No Gingival or Mucosal Lesions/ Ulcerations Neck: Supple, No JVD, No Nodes, Trachea Midline Lungs: No rhonchi, No wheeze, No rales, Diminished Cardiovascular: Regular rate, Regular Rhythm, Normal S1, Normal S2, No murmurs, No rub noted, No Gallop Abdomen: Bowel Sounds Present, Soft, Non Tender, Non-Distended Extremities: No clubbing, No cyanosis, No edema Skin: No breakdown Musculoskeletal: No Tenderness to Palpation of Joints or Extremities Lymphatic: No Cervical, Supraclavicular, or Inguinal Adenopathy Neurological: Cranial nerves II-XII grossly intact, Neuro grossly intact, Motor Exam 5/5 strength throughout Psych/Mental Status: Alert and oriented to time, place, person, mood and affect Current Medications Acetaminophen (Acetaminophen 325 Mg Tablet) 650 mg PO Q6H PRN PRN PRN Reason: Pain Score 1-10/Temp > 100.7 F Al Hydroxide/Mg Hydroxide (Mag Hydrox/Al Hydrox/Simeth 30 Ml Udc) 30 ml PO Q6H PRN PRN PRN Reason: Gastric Burning Albuterol Sulfate (Albuterol Sulfate 8 Gm Inhaler (60 Puffs)) 2 puff INHALATION Q4H PRN PRN PRN Reason: SOB &/OR WHEEZING Enoxaparin Sodium (Enoxaparin 30 Mg/0.3 Ml Syringe) 30 mg SC BID [facility] Last Admin: 01/11/20 09:29 Dose: 30 mg Documented by: Sodium Chloride () 250 mls @ 15 mls/hr IV .[id number] PRN PRN Reason: Saline Flush Sodium Chloride () 250 mls @ 15 mls/hr IV .[id number] PRN PRN Reason: Additional IVPB Infusion Levetiracetam (Levetiracetam 1,000 Mg Tablet) 1,000 mg PO BID [facility] Last Admin: 01/11/20 09:30 Dose: 1,000 mg Documented by: Ondansetron HCl (Ondansetron 4 Mg/2 Ml Vial) 4 mg IV Q8H PRN PRN PRN Reason: NAUSEA/VOMITING Sodium Chloride (0.9% Saline Lock 10 Ml Syringe) 10 - 40 ml IV UD PRN PRN Reason: SALINE FLUSH Last Admin: 01/10/20 16:04 Dose: 10 ml Documented by: Topiramate (Topiramate 50 Mg Tablet) 50 mg PO BID [facility] Last Admin: 01/11/20 09:30 Dose: 50 mg Documented by: Medical Necessity - Tobacco Use Smoking Status: Never smoker Tobacco Use: Non-smoker Assessment/Plan All Active Problems COVID-19 (Acute) Confusion (Acute) Acute metabolic encephalopathy (Acute) RECOMMENDATIONS: 1. Gentle intermittent diuresis as tolerated by hemodynamics and renal function. 2. Encourage incentive spirometer use and mobilize patient as tolerated. 3. Wean supplemental oxygen to maintain saturations at or above 90%. 4. Encourage incentive spirometer use and mobilize patient as tolerated. 5. Check BMP tomorrow to guide possible diuresis IMPRESSIONS: 1. Acute hypoxemic respiratory failure secondary to COVID-19 pneumonia The patient initially presented with Covid-like symptoms of 2 weeks duration. He was felt to be outside of the window for treatment with remdesivir or convalescent plasma. The patient subsequently completed a treatment course of Decadron. CTA chest showed no evidence for pulmonary embolism. Plan to continue intermittent diuresis as tolerated by hemodynamics and renal function. Oxygenation status is slowly improving. Continue to encourage incentive spirometer use and mobilize patient as tolerated. May attempt to give diuretics tomorrow pending renal function. Anticipate discharge from the hospital when able to tolerate 6 L or less with ambulation. 2. Unspecified seizure disorder Continue Keppra per home regimen. Inpatient E&M: 71827 Subs Hosp L2
--- NOTE | 2020-01-11 15:20 | PCM.PROGNOTE ---
Patient Problems: Active and Suspected Problems COVID-19 (Acute) Confusion (Acute) Acute metabolic encephalopathy (Acute) Subjective: Patient was seen and examined today, at rest his oxygen requirement is manageable at 3 L, however, on ambulation, he requires 10 L which is too high to send the patient home with at this time. I have elected to keep the patient in the hospital and check his O2 requirement tomorrow. Patient has no complaints of any chest pain, shortness of breath, fever or chills. Objective: General: Alert, Cooperative, No apparent distress, Well developed, Well nourished, Confused HEENT: Atraumatic, PERRLA, EOMI, Normocephalic Oral: Moist Mucosa Neck: Supple, No JVD, Trachea Midline, Thyroid Normal Size and Texture Lungs: Clear to auscultation, breath sounds are diminished, No rhonchi, No wheeze, No rales Cardiovascular: Regular rate, Regular Rhythm, Normal S1, Normal S2, No murmurs, PMI Normal, No rub noted, No Gallop Abdomen: Bowel Sounds Present, Soft, Non Tender, Non-Distended Extremities: No clubbing, No cyanosis, No edema, Capillary Refill Less than 3 Seconds Skin: No rashes, No breakdown Musculoskeletal: No Tenderness to Palpation of Joints or Extremities Neurological: Cranial nerves II-XII grossly intact, Neuro grossly intact, Sensory exam intact to light touch and pain Psych/Mental Status: Flat Affect, - - Patient has some confusion but is able to answer some simple questions - Physical Exam Vitals/I&O's: Vital Signs Temp Pulse Resp BP Pulse Ox 97.0 F L 92 18 141/76 H 93 01/11/20 13:56 01/11/20 13:56 01/11/20 13:56 01/11/20 13:56 01/11/20 13:56 Oxygen Flow Rate (L/min) [ 10 AMBULATION with Oxygen] Oxygen Flow Rate (L/min) 3 Oxygen Delivery Method Nasal Cannula Weight: 69.1 kg Body Mass Index (BMI) 22.3 Intake and Output for Last 24 Hours 01/09/20 01/10/20 01/11/20 23:59 23:59 23:59 Intake Total 240 / 240 600 / 600 Output Total 850 / 850 Balance 240 / -10 -250 / -250 Current Medications Acetaminophen (Acetaminophen 325 Mg Tablet) 650 mg PO Q6H PRN PRN PRN Reason: Pain Score 1-10/Temp > 100.7 F Al Hydroxide/Mg Hydroxide (Mag Hydrox/Al Hydrox/Simeth 30 Ml Udc) 30 ml PO Q6H PRN PRN PRN Reason: Gastric Burning Albuterol Sulfate (Albuterol Sulfate 8 Gm Inhaler (60 Puffs)) 2 puff INHALATION Q4H PRN PRN PRN Reason: SOB &/OR WHEEZING Enoxaparin Sodium (Enoxaparin 30 Mg/0.3 Ml Syringe) 30 mg SC BID [facility] Last Admin: 01/11/20 09:29 Dose: 30 mg Documented by: Sodium Chloride () 250 mls @ 15 mls/hr IV .[id number] PRN PRN Reason: Saline Flush Sodium Chloride () 250 mls @ 15 mls/hr IV .[id number] PRN PRN Reason: Additional IVPB Infusion Levetiracetam (Levetiracetam 1,000 Mg Tablet) 1,000 mg PO BID [facility] Last Admin: 01/11/20 09:30 Dose: 1,000 mg Documented by: Ondansetron HCl (Ondansetron 4 Mg/2 Ml Vial) 4 mg IV Q8H PRN PRN PRN Reason: NAUSEA/VOMITING Sodium Chloride (0.9% Saline Lock 10 Ml Syringe) 10 - 40 ml IV UD PRN PRN Reason: SALINE FLUSH Last Admin: 01/10/20 16:04 Dose: 10 ml Documented by: Topiramate (Topiramate 50 Mg Tablet) 50 mg PO BID [facility] Last Admin: 01/11/20 09:30 Dose: 50 mg Documented by: Medical Necessity - Tobacco Use Smoking Status: Never smoker Tobacco Use: Non-smoker Assessment/Plan All Active Problems COVID-19 (Acute) Confusion (Acute) Acute metabolic encephalopathy (Acute) #1 acute COVID-19 pneumonia-patient is currently on dexamethasone only at this time, pulmonary medicine and infectious diseases are participating in his care #2 acute hypoxic respiratory failure secondary to acute COVID-19 pneumonia-patient is on high flow oxygen at this time, an attempt will be made before tomorrow to wean the oxygen further, I would rather not send him home on a flow rate of 6 L. We will check his pulse ox on ambulation tomorrow #3 metabolic encephalopathy secondary to COVID-19 infection , there is still evidence of confusion when talking with the patient which is mild #4 seizure disorder Patient is a DNR CC arrest no intubation. Inpatient E&M: [id number] Subs Hosp L2
[2020-01-12] VITALS (7 sets, daily range): BP systolic 126–135; BP diastolic 70–78; PULSE 66–90; RESP 16–20; TEMP 35.9–36.3; O2SAT 76–100
[2020-01-12 07:10] LABS: Anion Gap 7 (5-15); BUN 34 mg/dL (7-18); BUN/Creat Ratio 34.8 RATIO (10-20); Chloride 110 mmol/L (98-107); Creatinine, Serum 0.98 mg/dL (0.70-1.30); EST Glomerular Filtration Rate 79 mL/min (>60); Est Glom Filt Rate - Afr Amer 95 mL/min (>60); Estimated Creatinine Clearance 60.63 ml/min; Glucose 109 mg/dL (74-106); Potassium 3.9 mmol/L (3.5-5.1); Sodium Level 138 mmol/L (136-145)
[2020-01-12] MEDS: 0.9% Saline Lock 10 ML Syringe IV ×2 (08:39→10:27)
[2020-01-12] MEDS: Topiramate 50 MG Tablet PO ×2 (08:39→20:13)
[2020-01-12] MEDS: Enoxaparin 30 MG/0.3 ML Syringe SC ×2 (08:39→20:12)
[2020-01-12] MEDS: levETIRAcetam 1,000 MG Tablet 1000 MG PO ×2 (08:39→20:09)
[2020-01-12] MEDS: Furosemide 20 MG/2 ML VIAL IV (10:27)
--- NOTE | 2020-01-12 11:23 | CASEMGMT ---
RN CM Note: Dr. Silver updated on patient's oxygen testing . Per nursing, the patient desaturates quickly with any activity and requires longer recovery on 8L NC. Patient will not be dc'd today. RN CHESTER requested nursing do teaching with patient on watching pulse ox, adjusting flow meter for activity and monitoring shortness of breath. Isidro HOLLEYN RN ACM
--- NOTE | 2020-01-12 15:03 | PCM.PN.PUL ---
Patient Problems: Active and Suspected Problems COVID-19 (Acute) Confusion (Acute) Acute metabolic encephalopathy (Acute) Subjective: Patient did okay overnight. Patient continues to report subjective improvement in overall symptomatology, but is desaturating with ambulation per nursing staff. Patient denies any chest pain or abdominal pain. Patient tolerating p.o. - Physical Exam Vitals/I&O's: Vital Signs Temp Pulse Resp BP Pulse Ox 36.0 C L 76 20 H 135/70 H 94 01/12/20 08:28 01/12/20 08:28 01/12/20 08:28 01/12/20 08:28 01/12/20 10:35 Oxygen Flow Rate (L/min) [ 8 AMBULATION with Oxygen] Oxygen Flow Rate (L/min) 3 Oxygen Delivery Method Nasal Cannula Weight: 69 kg Body Mass Index (BMI) 22.3 Intake and Output for Last 24 Hours 01/10/20 01/11/20 01/12/20 23:59 23:59 23:59 Intake Total 600 / 600 260 / 260 Output Total 850 / 850 800 / 800 Balance -250 / -250 -540 / -540 General: Alert, Oriented x3, Cooperative, No apparent distress, Well developed, Well nourished, - - Speaking in full sentences HEENT: Atraumatic, PERRLA, EOMI, Normocephalic, - - No scleral icterus or injection noted Oral: Moist Mucosa, No Gingival or Mucosal Lesions/ Ulcerations Neck: Supple, No JVD, No Nodes, Trachea Midline Lungs: No rhonchi, No wheeze, No rales, Diminished Cardiovascular: Regular rate, Regular Rhythm, Normal S1, Normal S2, No murmurs, No rub noted, No Gallop Abdomen: Bowel Sounds Present, Soft, Non Tender, Non-Distended Extremities: No clubbing, No cyanosis, No edema, Capillary Refill Less than 3 Seconds Skin: No rashes, No breakdown Musculoskeletal: No Tenderness to Palpation of Joints or Extremities Lymphatic: No Cervical, Supraclavicular, or Inguinal Adenopathy Neurological: Cranial nerves II-XII grossly intact, Neuro grossly intact, Motor Exam 5/5 strength throughout Psych/Mental Status: Alert and oriented to time, place, person, mood and affect Laboratory Results 01/12/20 06:37: Sodium 138, Potassium 3.9, Chloride 110 H, Carbon Dioxide 21.0, Anion Gap 7, BUN 34 H, Creatinine 0.98, Estim Creat Clear Calc 60.63, Est GFR (MDRD) Af Amer 95, Est GFR (MDRD) Non-Af 79, BUN/Creatinine Ratio 34.8 H, Glucose 109 H, Calcium 9.0 Current Medications Acetaminophen (Acetaminophen 325 Mg Tablet) 650 mg PO Q6H PRN PRN PRN Reason: Pain Score 1-10/Temp > 100.7 F Al Hydroxide/Mg Hydroxide (Mag Hydrox/Al Hydrox/Simeth 30 Ml Udc) 30 ml PO Q6H PRN PRN PRN Reason: Gastric Burning Albuterol Sulfate (Albuterol Sulfate 8 Gm Inhaler (60 Puffs)) 2 puff INHALATION Q4H PRN PRN PRN Reason: SOB &/OR WHEEZING Enoxaparin Sodium (Enoxaparin 30 Mg/0.3 Ml Syringe) 30 mg SC BID [facility] Last Admin: 01/12/20 08:39 Dose: 30 mg Documented by: Sodium Chloride () 250 mls @ 15 mls/hr IV .[id number] PRN PRN Reason: Saline Flush Sodium Chloride () 250 mls @ 15 mls/hr IV .[id number] PRN PRN Reason: Additional IVPB Infusion Levetiracetam (Levetiracetam 1,000 Mg Tablet) 1,000 mg PO BID [facility] Last Admin: 01/12/20 08:39 Dose: 1,000 mg Documented by: Ondansetron HCl (Ondansetron 4 Mg/2 Ml Vial) 4 mg IV Q8H PRN PRN PRN Reason: NAUSEA/VOMITING Sodium Chloride (0.9% Saline Lock 10 Ml Syringe) 10 - 40 ml IV UD PRN PRN Reason: SALINE FLUSH Last Admin: 01/12/20 10:27 Dose: 20 ml Documented by: Topiramate (Topiramate 50 Mg Tablet) 50 mg PO BID [facility] Last Admin: 01/12/20 08:39 Dose: 50 mg Documented by: Medical Necessity - Tobacco Use Smoking Status: Never smoker Tobacco Use: Non-smoker Assessment/Plan All Active Problems COVID-19 (Acute) Confusion (Acute) Acute metabolic encephalopathy (Acute) RECOMMENDATIONS: 1. Gentle intermittent diuresis as tolerated by hemodynamics and renal function. 2. Encourage incentive spirometer use and mobilize patient as tolerated. 3. Wean supplemental oxygen to maintain saturations at or above 90%. 4. Encourage incentive spirometer use and mobilize patient as tolerated. 5. Check BMP tomorrow to guide possible diuresis IMPRESSIONS: 1. Acute hypoxemic respiratory failure secondary to COVID-19 pneumonia The patient initially presented with Covid-like symptoms of 2 weeks duration. He was felt to be outside of the window for treatment with remdesivir or convalescent plasma. The patient subsequently completed a treatment course of Decadron. CTA chest showed no evidence for pulmonary embolism. Plan to continue intermittent diuresis as tolerated by hemodynamics and renal function. Oxygenation status is slowly improving. Continue to encourage incentive spirometer use and mobilize patient as tolerated. Anticipate challenging with diuretics on a daily basis as renal function will allow. Will obtain a BMP in the morning. Patient should have a walking oximetry on a daily basis. When patient is able to ambulate on 6 L or less, okay to discharge from a pulmonary perspective with outpatient follow-up in 2 to 4 weeks to evaluate for cessation. Patient was advised to have a pulse oximeter for discharge 2. Unspecified seizure disorder Continue Keppra per home regimen. Inpatient E&M: [id number] Subs Hosp L2
--- NOTE | 2020-01-12 15:05 | PCM.PROGNOTE ---
Patient Problems: Active and Suspected Problems COVID-19 (Acute) Confusion (Acute) Acute metabolic encephalopathy (Acute) Subjective: Seen and examined today, he is still requiring 8 L on ambulation to maintain his pulse ox. He is only on 3 L at rest however to maintain his pulse oximetry above 90. Objective: General: Alert, Cooperative, No apparent distress, Well developed, Well nourished, Confused HEENT: Atraumatic, PERRLA, EOMI, Normocephalic Oral: Moist Mucosa Neck: Supple, No JVD, Trachea Midline, Thyroid Normal Size and Texture Lungs: Clear to auscultation, breath sounds are diminished, No rhonchi, No wheeze, No rales Cardiovascular: Regular rate, Regular Rhythm, Normal S1, Normal S2, No murmurs, PMI Normal, No rub noted, No Gallop Abdomen: Bowel Sounds Present, Soft, Non Tender, Non-Distended Extremities: No clubbing, No cyanosis, No edema, Capillary Refill Less than 3 Seconds Skin: No rashes, No breakdown Musculoskeletal: No Tenderness to Palpation of Joints or Extremities Neurological: Cranial nerves II-XII grossly intact, Neuro grossly intact, Sensory exam intact to light touch and pain Psych/Mental Status: Flat Affect, - - Patient has some confusion but is able to answer some simple questions - Physical Exam Vitals/I&O's: Vital Signs Temp Pulse Resp BP Pulse Ox 96.8 F L 76 20 H 135/70 H 94 01/12/20 08:28 01/12/20 08:28 01/12/20 08:28 01/12/20 08:28 01/12/20 10:35 Oxygen Flow Rate (L/min) [ 8 AMBULATION with Oxygen] Oxygen Flow Rate (L/min) 3 Oxygen Delivery Method Nasal Cannula Weight: 69 kg Body Mass Index (BMI) 22.3 Intake and Output for Last 24 Hours 01/10/20 01/11/20 01/12/20 23:59 23:59 23:59 Intake Total 600 / 600 260 / 260 Output Total 850 / 850 800 / 800 Balance -250 / -250 -540 / -540 Laboratory Results 01/12/20 06:37: Sodium 138, Potassium 3.9, Chloride 110 H, Carbon Dioxide 21.0, Anion Gap 7, BUN 34 H, Creatinine 0.98, Estim Creat Clear Calc 60.63, Est GFR (MDRD) Af Amer 95, Est GFR (MDRD) Non-Af 79, BUN/Creatinine Ratio 34.8 H, Glucose 109 H, Calcium 9.0 Current Medications Acetaminophen (Acetaminophen 325 Mg Tablet) 650 mg PO Q6H PRN PRN PRN Reason: Pain Score 1-10/Temp > 100.7 F Al Hydroxide/Mg Hydroxide (Mag Hydrox/Al Hydrox/Simeth 30 Ml Udc) 30 ml PO Q6H PRN PRN PRN Reason: Gastric Burning Albuterol Sulfate (Albuterol Sulfate 8 Gm Inhaler (60 Puffs)) 2 puff INHALATION Q4H PRN PRN PRN Reason: SOB &/OR WHEEZING Enoxaparin Sodium (Enoxaparin 30 Mg/0.3 Ml Syringe) 30 mg SC BID [facility] Last Admin: 01/12/20 08:39 Dose: 30 mg Documented by: Sodium Chloride () 250 mls @ 15 mls/hr IV .[id number] PRN PRN Reason: Saline Flush Sodium Chloride () 250 mls @ 15 mls/hr IV .[id number] PRN PRN Reason: Additional IVPB Infusion Levetiracetam (Levetiracetam 1,000 Mg Tablet) 1,000 mg PO BID [facility] Last Admin: 01/12/20 08:39 Dose: 1,000 mg Documented by: Ondansetron HCl (Ondansetron 4 Mg/2 Ml Vial) 4 mg IV Q8H PRN PRN PRN Reason: NAUSEA/VOMITING Sodium Chloride (0.9% Saline Lock 10 Ml Syringe) 10 - 40 ml IV UD PRN PRN Reason: SALINE FLUSH Last Admin: 01/12/20 10:27 Dose: 20 ml Documented by: Topiramate (Topiramate 50 Mg Tablet) 50 mg PO BID [facility] Last Admin: 01/12/20 08:39 Dose: 50 mg Documented by: Medical Necessity - Tobacco Use Smoking Status: Never smoker Tobacco Use: Non-smoker Assessment/Plan All Active Problems COVID-19 (Acute) Confusion (Acute) Acute metabolic encephalopathy (Acute) #1 acute COVID-19 pneumonia-patient is currently on dexamethasone only at this time, pulmonary medicine and infectious diseases are participating in his care, I talked briefly with pulmonary medicine today, they stated that they would diurese the patient slightly and see if this made a difference in his oxygenation. Patient will have labs rechecked tomorrow #2 acute hypoxic respiratory failure secondary to acute COVID-19 pneumonia-patient is on high flow oxygen at this time, an attempt will be made before tomorrow to wean the oxygen further, I would rather not send him home on a flow rate of 8 L. We will check his pulse ox on ambulation tomorrow #3 metabolic encephalopathy secondary to COVID-19 infection , there is still evidence of confusion when talking with the patient which is mild #4 seizure disorder Patient is a DNR CC arrest no intubation. Inpatient E&M: [id number] Subs Hosp L2
--- NOTE | 2020-01-12 15:21 | NURSING ---
Pt resting in bed comfortably. denies needs at this time.
--- NOTE | 2020-01-12 15:27 | NURSING ---
Did notify VIOLETA Velez of finger pulse ox of 86%. Rosie states they have been checking pts ear pulse ox.
[2020-01-13] VITALS (11 sets, daily range): BP systolic 123–140; BP diastolic 68–87; PULSE 62–100; RESP 16–40; TEMP 36–36.4; O2SAT 69–99
[2020-01-13 06:36] LABS: Anion Gap 8 (5-15); BUN 35 mg/dL (7-18); Calcium,Total 8.8 mg/dL (8.5-10.1); Chloride 107 mmol/L (98-107); EST Glomerular Filtration Rate 77 mL/min (>60); Est Glom Filt Rate - Afr Amer 93 mL/min (>60); Estimated Creatinine Clearance 59.42 ml/min; Glucose 94 mg/dL (74-106); Potassium 3.8 mmol/L (3.5-5.1); Sodium Level 135 mmol/L (136-145)
[2020-01-13] MEDS: levETIRAcetam 1,000 MG Tablet 1000 MG PO ×2 (09:55→20:52)
[2020-01-13] MEDS: Enoxaparin 30 MG/0.3 ML Syringe SC ×2 (09:55→20:52)
[2020-01-13] MEDS: Topiramate 50 MG Tablet PO ×2 (09:57→20:52)
[2020-01-13] MEDS: Furosemide 40 MG/4 ML Vial IV (13:23)
--- NOTE | 2020-01-13 14:09 | CASEMGMT ---
RN CM Continued Stay Note: oxygen requirement up to 8L. The room air pulse ox was 69 with ambulation and required 10L to recover. Pulmonology ordered Lasix 40 mg IV x 1. Per nursing, patient is ambulatory with stand by assist. DC on hold for today. DC PLAN: home when oxygen needs improved. Isidro CUMMINS RN ACM
--- NOTE | 2020-01-13 16:10 | PN_ITS ---
Patient Problems: Active and Suspected Problems COVID-19 (Acute) Confusion (Acute) Acute metabolic encephalopathy (Acute) Subjective: Patient did okay overnight. Patient's oxygenation improves at rest, but is still requiring significant nasal cannula oxygen to maintain saturations with ambulation. Patient is not reporting any change in overall status from his perspective. - Physical Exam Vitals/I&O's: Vital Signs Temp Pulse Resp BP Pulse Ox 36.1 C L 86 18 128/81 H 92 01/13/20 14:43 01/13/20 14:43 01/13/20 14:43 01/13/20 14:43 01/13/20 14:43 Oxygen Flow Rate (L/min) [ 8 AMBULATION with Oxygen] Oxygen Flow Rate (L/min) 8 Oxygen Delivery Method Nasal Cannula Weight: 69.3 kg Body Mass Index (BMI) 22.3 Intake and Output for Last 24 Hours 01/11/20 01/12/20 01/13/20 23:59 23:59 23:59 Intake Total 260 / 360 510 / 510 Output Total 800 / 800 Balance -540 / -440 510 / 510 General: Alert, Oriented x3, Cooperative, No apparent distress, - - No conversational dyspnea HEENT: Atraumatic, PERRLA, EOMI, Normocephalic, - - No scleral icterus or injection Oral: Moist Mucosa, No Gingival or Mucosal Lesions/ Ulcerations Neck: Supple, No JVD, No Nodes, Trachea Midline Lungs: No rhonchi, No wheeze, No rales, Diminished, - - Symmetric expansion. No dullness to percussion. Cardiovascular: Regular rate, Regular Rhythm, Normal S1, Normal S2, No murmurs, No rub noted, No Gallop Abdomen: Bowel Sounds Present, Soft, Non Tender, Non-Distended Extremities: No clubbing, No cyanosis, No edema, Capillary Refill Less than 3 Seconds Skin: No rashes, No breakdown Musculoskeletal: No Tenderness to Palpation of Joints or Extremities Lymphatic: No Cervical, Supraclavicular, or Inguinal Adenopathy Neurological: Cranial nerves II-XII grossly intact, Neuro grossly intact, Motor Exam 5/5 strength throughout Psych/Mental Status: Alert and oriented to time, place, person, mood and affect Laboratory Results 01/13/20 06:04: Sodium 135 L, Potassium 3.8, Chloride 107, Carbon Dioxide 20.0 L , Anion Gap 8, BUN 35 H, Creatinine 1.00, Estim Creat Clear Calc 59.42, Est GFR (MDRD) Af Amer 93, Est GFR (MDRD) Non-Af 77, BUN/Creatinine Ratio 35.0 H, Glucose 94, Calcium 8.8 Current Medications Acetaminophen (Acetaminophen 325 Mg Tablet) 650 mg PO Q6H PRN PRN PRN Reason: Pain Score 1-10/Temp > 100.7 F Al Hydroxide/Mg Hydroxide (Mag Hydrox/Al Hydrox/Simeth 30 Ml Udc) 30 ml PO Q6H PRN PRN PRN Reason: Gastric Burning Albuterol Sulfate (Albuterol Sulfate 8 Gm Inhaler (60 Puffs)) 2 puff INHALATION Q4H PRN PRN PRN Reason: SOB &/OR WHEEZING Enoxaparin Sodium (Enoxaparin 30 Mg/0.3 Ml Syringe) 30 mg SC BID [facility] Last Admin: 01/13/20 09:55 Dose: 30 mg Documented by: Sodium Chloride () 250 mls @ 15 mls/hr IV .[id number] PRN PRN Reason: Saline Flush Sodium Chloride () 250 mls @ 15 mls/hr IV .[id number] PRN PRN Reason: Additional IVPB Infusion Levetiracetam (Levetiracetam 1,000 Mg Tablet) 1,000 mg PO BID [facility] Last Admin: 01/13/20 09:55 Dose: 1,000 mg Documented by: Ondansetron HCl (Ondansetron 4 Mg/2 Ml Vial) 4 mg IV Q8H PRN PRN PRN Reason: NAUSEA/VOMITING Sodium Chloride (0.9% Saline Lock 10 Ml Syringe) 10 - 40 ml IV UD PRN PRN Reason: SALINE FLUSH Last Admin: 01/12/20 10:27 Dose: 20 ml Documented by: Topiramate (Topiramate 50 Mg Tablet) 50 mg PO BID [facility] Last Admin: 01/13/20 09:57 Dose: 50 mg Documented by: Medical Necessity - Tobacco Use Smoking Status: Never smoker Tobacco Use: Non-smoker Assessment/Plan All Active Problems COVID-19 (Acute) Confusion (Acute) Acute metabolic encephalopathy (Acute) RECOMMENDATIONS: 1. Increase aggressiveness of diuresis 2. Encourage incentive spirometer use and mobilize patient as tolerated. 3. Wean supplemental oxygen to maintain saturations at or above 90%. 4. Encourage incentive spirometer use and mobilize patient as tolerated. 5. Check BMP tomorrow to guide possible diuresis IMPRESSIONS: 1. Acute hypoxemic respiratory failure secondary to COVID-19 pneumonia The patient initially presented with Covid-like symptoms of 2 weeks duration. He was felt to be outside of the window for treatment with remdesivir or convalescent plasma. The patient subsequently completed a treatment course of Decadron. CTA chest showed no evidence for pulmonary embolism. Plan to continue intermittent diuresis as tolerated by hemodynamics and renal function. Oxygenation status is slowly improving. Continue to encourage incentive spirometer use and mobilize patient as tolerated. Patient does not appear to be improving significantly with ambulation. Some concern for pulmonary hypertension complicating his overall condition. Will increase aggressiveness of diuresis. Will obtain a BMP in the morning. Patient should have a walking oximetry on a daily basis. When patient is able to ambulate on 6 L or less, okay to discharge from a pulmonary perspective with outpatient follow-up in 2 to 4 weeks to evaluate for cessation. Patient was advised to have a pulse oximeter for discharge 2. Unspecified seizure disorder Continue Keppra per home regimen. Inpatient E&M: [id number] [facility] Hosp L2
--- NOTE | 2020-01-13 17:28 | PN_ITS ---
Patient Problems: Active and Suspected Problems COVID-19 (Acute) Confusion (Acute) Acute metabolic encephalopathy (Acute) Subjective: Feels better but still gets significantly short of breath with ambulation requiring 8 L nasal cannula, he has been getting intermittent Lasix doses as necessary. Vitals/I&O's: Vital Signs Temp Pulse Resp BP Pulse Ox 97.1 F L 88 18 130/80 H 93 01/13/20 16:45 01/13/20 16:45 01/13/20 16:45 01/13/20 16:45 01/13/20 16:45 Oxygen Flow Rate (L/min) [ 8 AMBULATION with Oxygen] Oxygen Flow Rate (L/min) 8 Oxygen Delivery Method Nasal Cannula Weight: 152 lb 12.485 oz Body Mass Index (BMI) 22.3 Intake and Output for Last 24 Hours 01/11/20 01/12/20 01/13/20 23:59 23:59 23:59 Intake Total 260 / 360 510 / 510 Output Total 800 / 800 Balance -540 / -440 510 / 510 General: Alert, Oriented x3, Cooperative, No apparent distress HEENT: Atraumatic, PERRLA, EOMI, Normocephalic Oral: Moist Mucosa Neck: Supple, No JVD Lungs: Normal air movement, No rhonchi, No wheeze, No rales, Diminished Cardiovascular: Regular rate, Regular Rhythm, Normal S1, Normal S2, No murmurs Abdomen: Soft, Non Tender, Non-Distended, No Hepato-splenomegaly Extremities: No edema, Capillary Refill Less than 3 Seconds Skin: No rashes, No breakdown Neurological: Neuro grossly intact, Sensory exam intact to light touch and pain Psych/Mental Status: Normal Affect, Appropriate Laboratory Results 01/13/20 06:04: Sodium 135 L, Potassium 3.8, Chloride 107, Carbon Dioxide 20.0 L , Anion Gap 8, BUN 35 H, Creatinine 1.00, Estim Creat Clear Calc 59.42, Est GFR (MDRD) Af Amer 93, Est GFR (MDRD) Non-Af 77, BUN/Creatinine Ratio 35.0 H, Glucose 94, Calcium 8.8 Current Medications Acetaminophen (Acetaminophen 325 Mg Tablet) 650 mg PO Q6H PRN PRN PRN Reason: Pain Score 1-10/Temp > 100.7 F Al Hydroxide/Mg Hydroxide (Mag Hydrox/Al Hydrox/Simeth 30 Ml Udc) 30 ml PO Q6H PRN PRN PRN Reason: Gastric Burning Albuterol Sulfate (Albuterol Sulfate 8 Gm Inhaler (60 Puffs)) 2 puff INHALATION Q4H PRN PRN PRN Reason: SOB &/OR WHEEZING Enoxaparin Sodium (Enoxaparin 30 Mg/0.3 Ml Syringe) 30 mg SC BID [facility] Last Admin: 01/13/20 09:55 Dose: 30 mg Documented by: Sodium Chloride () 250 mls @ 15 mls/hr IV .[id number] PRN PRN Reason: Saline Flush Sodium Chloride () 250 mls @ 15 mls/hr IV .[id number] PRN PRN Reason: Additional IVPB Infusion Levetiracetam (Levetiracetam 1,000 Mg Tablet) 1,000 mg PO BID [facility] Last Admin: 01/13/20 09:55 Dose: 1,000 mg Documented by: Ondansetron HCl (Ondansetron 4 Mg/2 Ml Vial) 4 mg IV Q8H PRN PRN PRN Reason: NAUSEA/VOMITING Sodium Chloride (0.9% Saline Lock 10 Ml Syringe) 10 - 40 ml IV UD PRN PRN Reason: SALINE FLUSH Last Admin: 01/12/20 10:27 Dose: 20 ml Documented by: Topiramate (Topiramate 50 Mg Tablet) 50 mg PO BID [facility] Last Admin: 01/13/20 09:57 Dose: 50 mg Documented by: STROKE Vital Signs/Narrative: Vital Signs Temp Pulse Resp BP Pulse Ox 01/13/20 16:45 97.1 F L 88 18 130/80 H 93 01/13/20 14:43 97 F L 86 18 128/81 H 92 01/13/20 14:39 91 Medical Necessity - Tobacco Use Smoking Status: Never smoker Tobacco Use: Non-smoker Assessment/Plan All Active Problems COVID-19 (Acute) Confusion (Acute) Acute metabolic encephalopathy (Acute) 1. Acute hypoxic respiratory failure secondary COVID-19 pneumonia/SANDEEP/acute metabolic encephalopathy has resolved -Continue with Decadron, unlikely to benefit from remdesivir and convalescent plasma as he was symptomatic for 15 days prior to admission -We will continue to diurese as he continues to have significantly dyspnea on exertion and he is about 4 L positive -Kidney function is stable and will tolerate further diuresis, his SANDEEP has resolved 2. Seizure disorder -Stable -Continue with Keppra and Topamax DVT: Lovenox Inpatient E&M: [id number] Subs Hosp L2
[2020-01-14] VITALS (7 sets, daily range): BP systolic 122–147; BP diastolic 67–87; PULSE 82–100; RESP 16–18; TEMP 35.7–36.7; O2SAT 83–96
[2020-01-14 06:39] LABS: Anion Gap 6 (5-15); BUN 38 mg/dL (7-18); BUN/Creat Ratio 34.5 RATIO (10-20); Calcium,Total 8.9 mg/dL (8.5-10.1); Chloride 105 mmol/L (98-107); EST Glomerular Filtration Rate 69 mL/min (>60); Est Glom Filt Rate - Afr Amer 83 mL/min (>60); Estimated Creatinine Clearance 52.68 ml/min; Glucose 96 mg/dL (74-106); Potassium 3.7 mmol/L (3.5-5.1); Sodium Level 135 mmol/L (136-145)
[2020-01-14] MEDS: levETIRAcetam 1,000 MG Tablet 1000 MG PO ×2 (09:23→20:51)
[2020-01-14] MEDS: Topiramate 50 MG Tablet PO ×2 (09:23→20:51)
[2020-01-14] MEDS: 0.9% Saline Lock 10 ML Syringe IV ×2 (09:24→13:01)
[2020-01-14] MEDS: Enoxaparin 30 MG/0.3 ML Syringe SC ×2 (09:24→20:51)
--- NOTE | 2020-01-14 10:07 | RAD_ITS ---
STUDY: X-RAY CHEST REASON FOR EXAM: Male, 79 years old. COVID-19, OXYGEN NEED TECHNIQUE: Single AP portable view of the chest. COMPARISON: Comparison is made with prior study dated 12/31/2019. FINDINGS: Since prior examination, there now is evidence of a infiltration in the right lower lobe as well as in the peripheral aspect of the left upper lobe and left lower lobe. There is no demonstrated pleural abnormality. Normal size heart. Normal mediastinum and yayo. Normal visualized pulmonary arteries. There is atherosclerotic calcification of the aortic arch with tortuosity. There are diffuse degenerative changes of the visualized thoracic spine. There is degenerative osteoarthritis of the bilateral shoulders. There is no demonstrated abnormality of the visualized soft tissue structures of the upper abdomen. RAD/Chest 1 View (Portable) IMPRESSION: Infiltrates in the right lower lobe as well as in the left midlung and left lower lobes. Electronically Signed: Shaun Linares, at 13:53 EST , Service support ,
--- NOTE | 2020-01-14 12:33 | PN_ITS ---
Patient Problems: Active and Suspected Problems COVID-19 (Acute) Confusion (Acute) Acute metabolic encephalopathy (Acute) Subjective: Feels about the same as he did yesterday. He did need to be increased on his oxygen from about 3 L at rest to 8 L overnight. We will continue to diurese and will obtain a chest x-ray this morning Vitals/I&O's: Vital Signs Temp Pulse Resp BP Pulse Ox 96.2 F L 89 18 124/67 H 89 01/14/20 10:37 01/14/20 10:37 01/14/20 10:37 01/14/20 10:37 01/14/20 10:38 Oxygen Flow Rate (L/min) [ 10 AMBULATION with Oxygen] Oxygen Flow Rate (L/min) 7 Oxygen Delivery Method Nasal Cannula Weight: 148 lb 5.938 oz Body Mass Index (BMI) 22.3 Intake and Output for Last 24 Hours 01/12/20 01/13/20 01/14/20 23:59 23:59 23:59 Intake Total 260 / 360 910 / 910 290 / 290 Output Total 800 / 800 Balance -540 / -440 910 / 910 290 / 290 General: Alert, Oriented x3, Cooperative, No apparent distress HEENT: Atraumatic, PERRLA, EOMI, Normocephalic Oral: Moist Mucosa Neck: Supple, No JVD Lungs: Normal air movement, No rhonchi, No wheeze, No rales, Diminished Cardiovascular: Regular rate, Regular Rhythm, Normal S1, Normal S2, No murmurs Abdomen: Soft, Non Tender, Non-Distended, No Hepato-splenomegaly Extremities: No edema, Capillary Refill Less than 3 Seconds Skin: No rashes, No breakdown Neurological: Neuro grossly intact, Sensory exam intact to light touch and pain Psych/Mental Status: Normal Affect, Appropriate Laboratory Results 01/14/20 06:02: Sodium 135 L, Potassium 3.7, Chloride 105, Carbon Dioxide 24.0, Anion Gap 6, BUN 38 H, Creatinine 1.10, Estim Creat Clear Calc 52.68, Est GFR (MDRD) Af Amer 83, Est GFR (MDRD) Non-Af 69, BUN/Creatinine Ratio 34.5 H, Glucose 96, Calcium 8.9 Current Medications Acetaminophen (Acetaminophen 325 Mg Tablet) 650 mg PO Q6H PRN PRN PRN Reason: Pain Score 1-10/Temp > 100.7 F Al Hydroxide/Mg Hydroxide (Mag Hydrox/Al Hydrox/Simeth 30 Ml Udc) 30 ml PO Q6H PRN PRN PRN Reason: Gastric Burning Albuterol Sulfate (Albuterol Sulfate 8 Gm Inhaler (60 Puffs)) 2 puff INHALATION Q4H PRN PRN PRN Reason: SOB &/OR WHEEZING Enoxaparin Sodium (Enoxaparin 30 Mg/0.3 Ml Syringe) 30 mg SC BID [facility] Last Admin: 01/14/20 09:24 Dose: 30 mg Documented by: Sodium Chloride () 250 mls @ 15 mls/hr IV .[id number] PRN PRN Reason: Saline Flush Sodium Chloride () 250 mls @ 15 mls/hr IV .[id number] PRN PRN Reason: Additional IVPB Infusion Levetiracetam (Levetiracetam 1,000 Mg Tablet) 1,000 mg PO BID [facility] Last Admin: 01/14/20 09:23 Dose: 1,000 mg Documented by: Ondansetron HCl (Ondansetron 4 Mg/2 Ml Vial) 4 mg IV Q8H PRN PRN PRN Reason: NAUSEA/VOMITING Sodium Chloride (0.9% Saline Lock 10 Ml Syringe) 10 - 40 ml IV UD PRN PRN Reason: SALINE FLUSH Last Admin: 01/14/20 09:24 Dose: 10 ml Documented by: Topiramate (Topiramate 50 Mg Tablet) 50 mg PO BID [facility] Last Admin: 01/14/20 09:23 Dose: 50 mg Documented by: STROKE Vital Signs/Narrative: Vital Signs Temp Pulse Resp BP Pulse Ox Pulse Ox Pulse Ox 01/14/20 10:38 83 90 01/14/20 10:37 96.2 F L 89 18 124/67 H 94 01/14/20 09:22 96.4 F L 84 18 147/87 H 92 Pulse Ox 01/14/20 10:38 89 01/14/20 10:37 01/14/20 09:22 Medical Necessity - Tobacco Use Smoking Status: Never smoker Tobacco Use: Non-smoker Assessment/Plan All Active Problems COVID-19 (Acute) Confusion (Acute) Acute metabolic encephalopathy (Acute) 1. Acute hypoxic respiratory failure secondary COVID-19 pneumonia/SANDEEP/acute metabolic encephalopathy has resolved -Continue with Decadron, unlikely to benefit from remdesivir and convalescent plasma as he was symptomatic for 15 days prior to admission -We will continue to diurese as he continues to have significantly dyspnea on exertion and he is about 4 L positive -He did have an increase in his oxygen requirement for 3 L to 8 L, chest x-ray is pending. We will continue to diurese -Kidney function is stable and will tolerate further diuresis, his SANDEEP has resolved 2. Seizure disorder -Stable -Continue with Keppra and Topamax DVT: Lovenox Inpatient E&M: [id number] Subs Hosp L2
--- NOTE | 2020-01-14 12:53 | PCM.PN.PUL ---
Patient Problems: Active and Suspected Problems COVID-19 (Acute) Confusion (Acute) Acute metabolic encephalopathy (Acute) Subjective: Patient did okay overnight. Patient states that he feels subjectively unchanged compared to previous. Patient appears to be frustrated due to his worsening oxygen requirements overnight. Objective: Chest x-ray was personally reviewed and shows increased infiltrate in the left lower lobe. Patient also has significant bowel gas noted. - Physical Exam Vitals/I&O's: Vital Signs Temp Pulse Resp BP Pulse Ox 35.7 C L 89 18 124/67 H 89 01/14/20 10:37 01/14/20 10:37 01/14/20 10:37 01/14/20 10:37 01/14/20 10:38 Oxygen Flow Rate (L/min) [ 10 AMBULATION with Oxygen] Oxygen Flow Rate (L/min) 7 Oxygen Delivery Method Nasal Cannula Weight: 67.3 kg Body Mass Index (BMI) 22.3 Intake and Output for Last 24 Hours 01/12/20 01/13/20 01/14/20 23:59 23:59 23:59 Intake Total 260 / 360 910 / 910 290 / 290 Output Total 800 / 800 Balance -540 / -440 910 / 910 290 / 290 General: Alert, Oriented x3, Cooperative, No apparent distress, Well developed, Well nourished, - - Speaking in full sentences HEENT: Atraumatic, PERRLA, EOMI, Normocephalic, - - No scleral icterus or injection noted Oral: Moist Mucosa, No Gingival or Mucosal Lesions/ Ulcerations Neck: Supple, No JVD, No Nodes, Trachea Midline Lungs: No rhonchi, No wheeze, No rales, Diminished, - - Symmetric expansion. Cardiovascular: Regular rate, Regular Rhythm, Normal S1, Normal S2, No murmurs, No rub noted, No Gallop Abdomen: Bowel Sounds Present, Soft, Non Tender, Non-Distended Extremities: No clubbing, No cyanosis, No edema Skin: No rashes, No breakdown Musculoskeletal: No Tenderness to Palpation of Joints or Extremities Lymphatic: No Cervical, Supraclavicular, or Inguinal Adenopathy Neurological: Cranial nerves II-XII grossly intact, Neuro grossly intact, Motor Exam 5/5 strength throughout Psych/Mental Status: Alert and oriented to time, place, person, mood and affect Laboratory Results 01/14/20 06:02: Sodium 135 L, Potassium 3.7, Chloride 105, Carbon Dioxide 24.0, Anion Gap 6, BUN 38 H, Creatinine 1.10, Estim Creat Clear Calc 52.68, Est GFR (MDRD) Af Amer 83, Est GFR (MDRD) Non-Af 69, BUN/Creatinine Ratio 34.5 H, Glucose 96, Calcium 8.9 Current Medications Acetaminophen (Acetaminophen 325 Mg Tablet) 650 mg PO Q6H PRN PRN PRN Reason: Pain Score 1-10/Temp > 100.7 F Al Hydroxide/Mg Hydroxide (Mag Hydrox/Al Hydrox/Simeth 30 Ml Udc) 30 ml PO Q6H PRN PRN PRN Reason: Gastric Burning Albuterol Sulfate (Albuterol Sulfate 8 Gm Inhaler (60 Puffs)) 2 puff INHALATION Q4H PRN PRN PRN Reason: SOB &/OR WHEEZING Enoxaparin Sodium (Enoxaparin 30 Mg/0.3 Ml Syringe) 30 mg SC BID [facility] Last Admin: 01/14/20 09:24 Dose: 30 mg Documented by: Furosemide (Furosemide 40 Mg/4 Ml Vial) 40 mg IV X1 ONE Stop: 01/14/20 13:01 Sodium Chloride () 250 mls @ 15 mls/hr IV .[id number] PRN PRN Reason: Saline Flush Sodium Chloride () 250 mls @ 15 mls/hr IV .[id number] PRN PRN Reason: Additional IVPB Infusion Levetiracetam (Levetiracetam 1,000 Mg Tablet) 1,000 mg PO BID [facility] Last Admin: 01/14/20 09:23 Dose: 1,000 mg Documented by: Ondansetron HCl (Ondansetron 4 Mg/2 Ml Vial) 4 mg IV Q8H PRN PRN PRN Reason: NAUSEA/VOMITING Sodium Chloride (0.9% Saline Lock 10 Ml Syringe) 10 - 40 ml IV UD PRN PRN Reason: SALINE FLUSH Last Admin: 01/14/20 09:24 Dose: 10 ml Documented by: Topiramate (Topiramate 50 Mg Tablet) 50 mg PO BID [facility] Last Admin: 01/14/20 09:23 Dose: 50 mg Documented by: Medical Necessity - Tobacco Use Smoking Status: Never smoker Tobacco Use: Non-smoker Assessment/Plan All Active Problems COVID-19 (Acute) Confusion (Acute) Acute metabolic encephalopathy (Acute) RECOMMENDATIONS: 1. Continue aggressiveness of diuresis 2. Encourage incentive spirometer use and mobilize patient as tolerated. 3. Wean supplemental oxygen to maintain saturations at or above 90%. 4. Encourage incentive spirometer use and mobilize patient as tolerated. 5. Check BMP tomorrow to guide possible diuresis IMPRESSIONS: 1. Acute hypoxemic respiratory failure secondary to COVID-19 pneumonia The patient initially presented with Covid-like symptoms of 2 weeks duration. He was felt to be outside of the window for treatment with remdesivir or convalescent plasma. The patient subsequently completed a treatment course of Decadron. CTA chest showed no evidence for pulmonary embolism. Plan to continue intermittent diuresis as tolerated by hemodynamics and renal function. Oxygenation status is slowly improving. Continue to encourage incentive spirometer use and mobilize patient as tolerated. Patient does not appear to be improving significantly with ambulation. Some concern for pulmonary hypertension complicating his overall condition. Will increase aggressiveness of diuresis. Will obtain a BMP every morning. Patient should have a walking oximetry on a daily basis. When patient is able to ambulate on 6 L or less, okay to discharge from a pulmonary perspective with outpatient follow-up in 2 to 4 weeks to evaluate for cessation. Patient was advised to have a pulse oximeter for discharge 2. Unspecified seizure disorder Continue Keppra per home regimen. Inpatient E&M: [id number] [facility] Hosp L2
[2020-01-14] MEDS: Furosemide 40 MG/4 ML Vial IV (13:01)
--- NOTE | 2020-01-14 16:06 | NURSING ---
transitioned patient from hi michelle NC to normal NC at this time. Saturations 94% on 5L NC. Will continue to monitor.
[2020-01-15] VITALS (7 sets, daily range): BP systolic 113–136; BP diastolic 66–78; PULSE 65–87; RESP 16–18; TEMP 36.2–36.6; O2SAT 66–97
[2020-01-15 06:29] LABS: Anion Gap 4 (5-15); BUN 40 mg/dL (7-18); BUN/Creat Ratio 35.1 RATIO (10-20); Calcium,Total 9.2 mg/dL (8.5-10.1); Chloride 106 mmol/L (98-107); Creatinine, Serum 1.14 mg/dL (0.70-1.30); EST Glomerular Filtration Rate 66 mL/min (>60); Est Glom Filt Rate - Afr Amer 80 mL/min (>60); Estimated Creatinine Clearance 50.38 ml/min; Glucose 106 mg/dL (74-106); Potassium 4.2 mmol/L (3.5-5.1); Sodium Level 134 mmol/L (136-145)
--- NOTE | 2020-01-15 09:01 | PCM.PN.PUL ---
Patient Problems: Active and Suspected Problems COVID-19 (Acute) Confusion (Acute) Acute metabolic encephalopathy (Acute) Subjective: Patient did well overnight. No acute issues were reported. Patient's oxygen demands have improved compared to yesterday. Patient denies any new symptoms. - Physical Exam Vitals/I&O's: Vital Signs Temp Pulse Resp BP Pulse Ox 36.3 C L 65 18 136/66 H 95 01/15/20 05:45 01/15/20 05:45 01/15/20 05:45 01/15/20 05:45 01/15/20 08:44 Oxygen Flow Rate (L/min) [ 10 AMBULATION with Oxygen] Oxygen Flow Rate (L/min) 3.5 Oxygen Delivery Method Nasal Cannula Weight: 66.7 kg Body Mass Index (BMI) 22.3 Intake and Output for Last 24 Hours 01/13/20 01/14/20 01/15/20 23:59 23:59 23:59 Intake Total 910 / 910 770 / 770 240 / 240 Output Total 700 / 700 Balance 910 / 910 70 / 70 240 / 240 General: Alert, Oriented x3, Cooperative, No apparent distress, - - Thin build. Speaking in full sentences. HEENT: Atraumatic, PERRLA, EOMI, Normocephalic, - - No scleral icterus or injection noted Oral: Moist Mucosa, No Gingival or Mucosal Lesions/ Ulcerations Neck: Supple, No JVD, No Nodes, Trachea Midline Lungs: No rhonchi, No wheeze, No rales, Diminished, - - Symmetric expansion Cardiovascular: Regular rate, Regular Rhythm, Normal S1, Normal S2, No murmurs, No rub noted, No Gallop Abdomen: Bowel Sounds Present, Soft, Non Tender, Non-Distended Extremities: No clubbing, No cyanosis, No edema Skin: No rashes, No breakdown Musculoskeletal: No Tenderness to Palpation of Joints or Extremities Lymphatic: No Cervical, Supraclavicular, or Inguinal Adenopathy Neurological: Cranial nerves II-XII grossly intact, Motor Exam 5/5 strength throughout Psych/Mental Status: Alert and oriented to time, place, person, mood and affect Laboratory Results 01/15/20 05:54: Sodium 134 L, Potassium 4.2, Chloride 106, Carbon Dioxide 24.0, Anion Gap 4 L, BUN 40 H, Creatinine 1.14, Estim Creat Clear Calc 50.38, Est GFR (MDRD) Af Amer 80, Est GFR (MDRD) Non-Af 66, BUN/Creatinine Ratio 35.1 H, Glucose 106, Calcium 9.2 Current Medications Acetaminophen (Acetaminophen 325 Mg Tablet) 650 mg PO Q6H PRN PRN PRN Reason: Pain Score 1-10/Temp > 100.7 F Al Hydroxide/Mg Hydroxide (Mag Hydrox/Al Hydrox/Simeth 30 Ml Udc) 30 ml PO Q6H PRN PRN PRN Reason: Gastric Burning Albuterol Sulfate (Albuterol Sulfate 8 Gm Inhaler (60 Puffs)) 2 puff INHALATION Q4H PRN PRN PRN Reason: SOB &/OR WHEEZING Enoxaparin Sodium (Enoxaparin 30 Mg/0.3 Ml Syringe) [address] [facility] Last Admin: 01/14/20 20:51 Dose: 30 mg Documented by: Sodium Chloride () 250 mls @ 15 mls/hr IV .[id number] PRN PRN Reason: Saline Flush Sodium Chloride () 250 mls @ 15 mls/hr IV .[id number] PRN PRN Reason: Additional IVPB Infusion Levetiracetam (Levetiracetam 1,000 Mg Tablet) 1,[address] [facility] Last Admin: 01/14/20 20:51 Dose: 1,000 mg Documented by: Ondansetron HCl (Ondansetron 4 Mg/2 Ml Vial) 4 mg IV Q8H PRN PRN PRN Reason: NAUSEA/VOMITING Sodium Chloride (0.9% Saline Lock 10 Ml Syringe) 10 - 40 ml IV UD PRN PRN Reason: SALINE FLUSH Last Admin: 01/14/20 13:01 Dose: 10 ml Documented by: Topiramate (Topiramate 50 Mg Tablet) [address] [facility] Last Admin: 01/14/20 20:51 Dose: 50 mg Documented by: Clinical Impression(s) from Imaging Studies Chest X-Ray 01/14/20 10:07 IMPRESSION: Infiltrates in the right lower lobe as well as in the left midlung and left lower lobes. Electronically Signed: Shaun Linares, at 13:53 EST , Service support , Medical Necessity - Tobacco Use Smoking Status: Never smoker Tobacco Use: Non-smoker Assessment/Plan All Active Problems COVID-19 (Acute) Confusion (Acute) Acute metabolic encephalopathy (Acute) RECOMMENDATIONS: 1. Continue aggressive diuresis 2. Encourage incentive spirometer use and mobilize patient as tolerated. 3. Wean supplemental oxygen to maintain saturations at or above 90%. 4. Encourage incentive spirometer use and mobilize patient as tolerated. 5. Check BMP tomorrow to guide possible additional diuresis IMPRESSIONS: 1. Acute hypoxemic respiratory failure secondary to COVID-19 pneumonia The patient initially presented with Covid-like symptoms of 2 weeks duration. He was felt to be outside of the window for treatment with remdesivir or convalescent plasma. The patient subsequently completed a treatment course of Decadron. CTA chest showed no evidence for pulmonary embolism. Plan to continue intermittent diuresis as tolerated by hemodynamics and renal function. Oxygenation status is slowly improving. Continue to encourage incentive spirometer use and mobilize patient as tolerated. Patient does not appear to be improving significantly with ambulation. Some concern for pulmonary hypertension complicating his overall condition. Will increase aggressiveness of diuresis. Will obtain a BMP every morning. Patient should have a walking oximetry on a daily basis. When patient is able to ambulate on 6 L or less, okay to discharge from a pulmonary perspective with outpatient follow-up in 2 to 4 weeks to evaluate for cessation. Patient was advised to have a pulse oximeter for discharge 2. Unspecified seizure disorder Continue Keppra per home regimen. Inpatient E&M: [id number] [facility] Hosp L2
[2020-01-15] MEDS: Enoxaparin 30 MG/0.3 ML Syringe SC ×2 (09:30→21:27)
[2020-01-15] MEDS: Topiramate 50 MG Tablet PO ×2 (09:31→21:28)
[2020-01-15] MEDS: Furosemide 40 MG/4 ML Vial IV (09:31)
[2020-01-15] MEDS: levETIRAcetam 1,000 MG Tablet 1000 MG PO ×2 (09:31→21:28)
--- NOTE | 2020-01-15 11:04 | PN_ITS ---
Patient Problems: Active and Suspected Problems COVID-19 (Acute) Confusion (Acute) Acute metabolic encephalopathy (Acute) Subjective: Doing okay, continues oxygen status on 3 to 3-1/2 L nasal cannula. He is frustrated decrease his oxygen requirements Vitals/I&O's: Vital Signs Temp Pulse Resp BP Pulse Ox 97.1 F L 70 18 135/75 H 86 01/15/20 09:36 01/15/20 09:36 01/15/20 09:36 01/15/20 09:36 01/15/20 09:42 Oxygen Flow Rate (L/min) [ 6 AMBULATION with Oxygen] Oxygen Flow Rate (L/min) 3.5 Oxygen Delivery Method Nasal Cannula Weight: 147 lb 0.773 oz Body Mass Index (BMI) 22.3 Intake and Output for Last 24 Hours 01/13/20 01/14/20 01/15/20 23:59 23:59 23:59 Intake Total 910 / 910 770 / 770 240 / 240 Output Total 700 / 700 Balance 910 / 910 70 / 70 240 / 240 General: Alert, Oriented x3, Cooperative, No apparent distress HEENT: Atraumatic, PERRLA, EOMI, Normocephalic Oral: Moist Mucosa Neck: Supple, No JVD Lungs: Normal air movement, No rhonchi, No wheeze, No rales, Diminished Cardiovascular: Regular rate, Regular Rhythm, Normal S1, Normal S2, No murmurs Abdomen: Soft, Non Tender, Non-Distended, No Hepato-splenomegaly Extremities: No edema, Capillary Refill Less than 3 Seconds Skin: No rashes, No breakdown Neurological: Neuro grossly intact, Sensory exam intact to light touch and pain Psych/Mental Status: Normal Affect, Appropriate Laboratory Results 01/15/20 05:54: Sodium 134 L, Potassium 4.2, Chloride 106, Carbon Dioxide 24.0, Anion Gap 4 L, BUN 40 H, Creatinine 1.14, Estim Creat Clear Calc 50.38, Est GFR (MDRD) Af Amer 80, Est GFR (MDRD) Non-Af 66, BUN/Creatinine Ratio 35.1 H, Glucose 106, Calcium 9.2 Current Medications Acetaminophen (Acetaminophen 325 Mg Tablet) 650 mg PO Q6H PRN PRN PRN Reason: Pain Score 1-10/Temp > 100.7 F Al Hydroxide/Mg Hydroxide (Mag Hydrox/Al Hydrox/Simeth 30 Ml Udc) 30 ml PO Q6H PRN PRN PRN Reason: Gastric Burning Albuterol Sulfate (Albuterol Sulfate 8 Gm Inhaler (60 Puffs)) 2 puff INHALATION Q4H PRN PRN PRN Reason: SOB &/OR WHEEZING Enoxaparin Sodium (Enoxaparin 30 Mg/0.3 Ml Syringe) 30 mg SC BID [facility] Last Admin: 01/15/20 09:30 Dose: 30 mg Documented by: Sodium Chloride () 250 mls @ 15 mls/hr IV .[id number] PRN PRN Reason: Saline Flush Sodium Chloride () 250 mls @ 15 mls/hr IV .[id number] PRN PRN Reason: Additional IVPB Infusion Levetiracetam (Levetiracetam 1,000 Mg Tablet) 1,000 mg PO BID [facility] Last Admin: 01/15/20 09:31 Dose: 1,000 mg Documented by: Ondansetron HCl (Ondansetron 4 Mg/2 Ml Vial) 4 mg IV Q8H PRN PRN PRN Reason: NAUSEA/VOMITING Sodium Chloride (0.9% Saline Lock 10 Ml Syringe) 10 - 40 ml IV UD PRN PRN Reason: SALINE FLUSH Last Admin: 01/14/20 13:01 Dose: 10 ml Documented by: Topiramate (Topiramate 50 Mg Tablet) 50 mg PO BID [facility] Last Admin: 01/15/20 09:31 Dose: 50 mg Documented by: STROKE Vital Signs/Narrative: Vital Signs Temp Pulse Resp BP Pulse Ox Pulse Ox 01/15/20 09:42 86 01/15/20 09:36 97.1 F L 70 18 135/75 H 94 01/15/20 08:44 95 Medical Necessity - Tobacco Use Smoking Status: Never smoker Tobacco Use: Non-smoker Assessment/Plan All Active Problems COVID-19 (Acute) Confusion (Acute) Acute metabolic encephalopathy (Acute) 1. Acute hypoxic respiratory failure secondary COVID-19 pneumonia/SANDEEP/acute metabolic encephalopathy has resolved -Continue with Decadron, unlikely to benefit from remdesivir and convalescent plasma as he was symptomatic for 15 days prior to admission -We will continue to diurese as he continues to have significantly dyspnea on exertion and he is about 4 L positive -He did have an increase in his oxygen requirement for 3 L to 8 L, chest x-ray was unremarkable he is currently back down to his 3 L can continue to diurese -Kidney function is stable and will tolerate further diuresis, his SANDEEP has resolved 2. Seizure disorder -Stable -Continue with Keppra and Topamax DVT: Lovenox Inpatient E&M: [id number] Subs Hosp L2
--- NOTE | 2020-01-15 16:49 | CASEMGMT ---
RN CM Note: Information/script for home oxygen on front of chart with green sheet. Patient may need 10L concentrator at home if ambulatory O2 needs are >5L. Information for pulse oximeter purchase @ [facility] (cost $27.99 +tax) which is closest pharmacy is on front of chart to give to family to roller picker. Patient is aware he will need this. Isidro HOLLEYN RN ACM
[2020-01-16 03:54] VITALS: BP 128/64; PULSE 89; RESP 18; TEMP 36.4; O2SAT 96
[2020-01-16 09:12] VITALS: BP 136/78; PULSE 89; RESP 22; TEMP 36; O2SAT 90
--- NOTE | 2020-01-16 10:12 | PN_ITS ---
Patient Problems: Active and Suspected Problems COVID-19 (Acute) Confusion (Acute) Acute metabolic encephalopathy (Acute) Subjective: Patient did well overnight. No acute issues were reported. Patient states he feels subjectively slightly improved compared to yesterday. Patient was able to ambulate around and did desaturate to 86% on 6 L yesterday. - Physical Exam Vitals/I&O's: Vital Signs Temp Pulse Resp BP Pulse Ox 36.0 C L 89 22 H 136/78 H 90 01/16/20 09:12 01/16/20 09:12 01/16/20 09:12 01/16/20 09:12 01/16/20 09:12 Oxygen Flow Rate (L/min) [ 6 AMBULATION with Oxygen] Oxygen Flow Rate (L/min) 3.5 Oxygen Delivery Method Nasal Cannula Weight: 66.9 kg Body Mass Index (BMI) 22.3 Intake and Output for Last 24 Hours 01/14/20 01/15/20 01/16/20 23:59 23:59 23:59 Intake Total 770 / 770 840 / 840 Output Total 700 / 700 Balance 70 / 70 840 / 840 General: Alert, Oriented x3, Cooperative, No apparent distress, - - Speaking in full sentences. HEENT: Atraumatic, PERRLA, EOMI, Normocephalic, - - No scleral icterus or injection noted Oral: Moist Mucosa, No Gingival or Mucosal Lesions/ Ulcerations Neck: Supple, No JVD, No Nodes, Trachea Midline Lungs: No rhonchi, No wheeze, No rales, Diminished, - - Symmetric expansion. Cardiovascular: Regular rate, Regular Rhythm, Normal S1, Normal S2, No murmurs, No rub noted, No Gallop Abdomen: Bowel Sounds Present, Soft, Non Tender, Non-Distended Extremities: No clubbing, No cyanosis, No edema Skin: No rashes, No breakdown Musculoskeletal: No Tenderness to Palpation of Joints or Extremities Lymphatic: No Cervical, Supraclavicular, or Inguinal Adenopathy Neurological: Cranial nerves II-XII grossly intact, Neuro grossly intact, Motor Exam 5/5 strength throughout Psych/Mental Status: Alert and oriented to time, place, person, mood and affect Current Medications Acetaminophen (Acetaminophen 325 Mg Tablet) 650 mg PO Q6H PRN PRN PRN Reason: Pain Score 1-10/Temp > 100.7 F Al Hydroxide/Mg Hydroxide (Mag Hydrox/Al Hydrox/Simeth 30 Ml Udc) 30 ml PO Q6H PRN PRN PRN Reason: Gastric Burning Albuterol Sulfate (Albuterol Sulfate 8 Gm Inhaler (60 Puffs)) 2 puff INHALATION Q4H PRN PRN PRN Reason: SOB &/OR WHEEZING Enoxaparin Sodium (Enoxaparin 30 Mg/0.3 Ml Syringe) 30 mg SC BID [facility] Last Admin: 01/15/20 21:27 Dose: 30 mg Documented by: Sodium Chloride () 250 mls @ 15 mls/hr IV .[id number] PRN PRN Reason: Saline Flush Sodium Chloride () 250 mls @ 15 mls/hr IV .[id number] PRN PRN Reason: Additional IVPB Infusion Levetiracetam (Levetiracetam 1,000 Mg Tablet) 1,000 mg PO BID [facility] Last Admin: 01/15/20 21:28 Dose: 1,000 mg Documented by: Ondansetron HCl (Ondansetron 4 Mg/2 Ml Vial) 4 mg IV Q8H PRN PRN PRN Reason: NAUSEA/VOMITING Sodium Chloride (0.9% Saline Lock 10 Ml Syringe) 10 - 40 ml IV UD PRN PRN Reason: SALINE FLUSH Last Admin: 01/14/20 13:01 Dose: 10 ml Documented by: Topiramate (Topiramate 50 Mg Tablet) 50 mg PO BID [facility] Last Admin: 01/15/20 21:28 Dose: 50 mg Documented by: Medical Necessity - Tobacco Use Smoking Status: Never smoker Tobacco Use: Non-smoker Assessment/Plan All Active Problems COVID-19 (Acute) Confusion (Acute) Acute metabolic encephalopathy (Acute) RECOMMENDATIONS: 1. Continue aggressive diuresis as tolerated 2. Encourage incentive spirometer use and mobilize patient as tolerated. 3. Wean supplemental oxygen to maintain saturations at or above 90%. 4. Encourage incentive spirometer use and mobilize patient as tolerated. 5. Possible discharge if home oxygen can be arranged at the required levels. IMPRESSIONS: 1. Acute hypoxemic respiratory failure secondary to COVID-19 pneumonia The patient initially presented with Covid-like symptoms of 2 weeks duration. He was felt to be outside of the window for treatment with remdesivir or convalescent plasma. The patient subsequently completed a treatment course of Decadron. CTA chest showed no evidence for pulmonary embolism. Plan to continue intermittent diuresis as tolerated by hemodynamics and renal function. Oxygenation status is slowly improving. Continue to encourage incentive spirometer use and mobilize patient as tolerated. Patient does not appear to be improving significantly with ambulation. Some concern for pulmonary hypertension complicating his overall condition. Patient with protracted course. Still requiring significant amounts of nasal cannula oxygen with ambulation. However, if supplemental oxygen can be arranged, potential discharge later today. 2. Unspecified seizure disorder Continue Keppra per home regimen. Inpatient E&M: [id number] Subs Hosp L2
[2020-01-16 10:45] VITALS: O2SAT 93
--- NOTE | 2020-01-16 11:00 | CM.UR ---
Addendum entered by Viji Blanton 01/16/20 11:14: Received call from Kayden at [facility]. States can get O2 today however it will not be til 5-[address] Chavez and charge nurse. Wisam Blanton RN, CCM. Original Note: Called [facility] at this time to set up home o2. States she'll page Kayden to call me back. faxed all clinical and orders to [phone] at this time. Wisam Blanton RN, CCM.
[2020-01-16 11:02] LABS: Anion Gap 9 (5-15); BUN 41 mg/dL (7-18); BUN/Creat Ratio 33.9 RATIO (10-20); Calcium,Total 9.1 mg/dL (8.5-10.1); Chloride 100 mmol/L (98-107); Creatinine, Serum 1.21 mg/dL (0.70-1.30); EST Glomerular Filtration Rate 62 mL/min (>60); Est Glom Filt Rate - Afr Amer 75 mL/min (>60); Estimated Creatinine Clearance 47.61 ml/min; Glucose 101 mg/dL (74-106); Potassium 3.4 mmol/L (3.5-5.1); Sodium Level 135 mmol/L (136-145)
[2020-01-16] MEDS: Topiramate 50 MG Tablet PO (11:12)
[2020-01-16] MEDS: Enoxaparin 30 MG/0.3 ML Syringe SC (11:13)
[2020-01-16] MEDS: levETIRAcetam 1,000 MG Tablet 1000 MG PO (11:13)
[2020-01-16 11:18] VITALS: BP 125/68; PULSE 90; RESP 20; TEMP 36.3; O2SAT 96
[2020-01-16 11:24] VITALS: PULSE 80; O2SAT 96
--- NOTE | 2020-01-16 14:08 | DCINST_ITS ---
- Discharge Diagnoses Current Active Problems: Current Active and Chronic Problems Seizures (Chronic) COVID-19 (Acute) Confusion (Acute) Acute metabolic encephalopathy (Acute) CKD (chronic kidney disease) (Chronic) You will use the following diet at home:: Regular Your food should be the consistency of: Regular Your liquids should be the consistency of: Regular/Thin Discharge Activity: Return to Normal Activity Call your doctor if you observe: Fever of 101 or Higher, Shortness of breath, Dizziness, Fainting spells, Swelling in the ankles, Chest pain, Increased palpitations (irregular heartbeat) Allergies/Adverse Reactions: Allergies No Known Allergies Allergy (Verified 12/31/19 09:21) Medications to take at Discharge Aspirin 81 mg PO 12/31/19 Topiramate 1 tab PO BID 12/31/19 levETIRAcetam tablet [Keppra tablet] 1,000 mg PO BID 12/31/19 Albuterol Inhaler [Ventolin Hfa] 2 puff INHALATION Q4H PRN PRN inhaler 01/16/20 Primary Care Physician: Levar Pedroza MD [Primary Care Provider] - Please follow up with your Primary Care Physician in: 3-5 days Test Results: Test results from this visit will be discussed in further detail at your follow- up appointment, if applicable. Please Follow Up With: Kris Chavez MD When: 2-4 weeks
--- NOTE | 2020-01-16 14:12 | PCM.DC.SUM ---
Discharge Date and Diagnosis - Problem List Patient Problems: Active and Suspected Problems COVID-19 (Acute) Confusion (Acute) Acute metabolic encephalopathy (Acute) Date of Admission: 12/31/19 Date of Discharge: 01/16/20 - Primary Discharge Diagnosis Acute Problems: Active Problems COVID-19 (Acute) Confusion (Acute) Acute metabolic encephalopathy (Acute) - Secondary Discharge Diagnosis Chronic Problems: Chronic Problems Seizures (Chronic) CKD (chronic kidney disease) (Chronic) Hospital Course and Treatment Imaging Results: Clinical Impression(s) from Imaging Studies Chest X-Ray 12/31/19 09:37 IMPRESSION: Mild increased markings in the right infrahilar region as well as in the left mid lung. This may represent early infiltrates. Follow-up is recommended. Electronically Signed: Shaun Linares, at 9:52 EDT , Service support , Chest CTA 12/31/19 10:15 IMPRESSION: Bilateral pulmonary infiltrates in the preferentially lateral distribution as described. Pneumonitis associated with Covid should be ruled out. Electronically Signed: Shaun Linares, at 11:25 EDT , Service support , Brain CT 01/01/20 16:01 IMPRESSION: Age-related and chronic changes of the brain. Electronically Signed: Greg Mueller DO at 20:34 EDT Tel [phone], Service support , Brain MRI 01/02/20 12:34 IMPRESSION: Involutional changes of the brain, as described above. No acute infarct. Electronically Signed: Aurelio Pillai MD at 14:00 EST Tel , Service support , Chest X-Ray 01/14/20 10:07 IMPRESSION: Infiltrates in the right lower lobe as well as in the left midlung and left lower lobes. Electronically Signed: Shaun Linares, at 13:53 EST , Service support , Consults: ID Pulmonology Operations: None Procedures: None Summary of Care Provided: Per HPI: The patient is a 79 year old M with PMHx of seizure disorder, h/o TIA, who comes in with shortness of breath, fatigue, cough ongoing 15 days ago, but worse over 4 days. She was taking from the patient's as patient is a poor historian. His stated that they got infected about 15 days ago from contacts at [place]. Patient is [place]. They have been in quarantine since then. Patient has been progressively short of breath with intermittent cough. He has however been confused and progressed over the last 4 days. 2 days prior to admission, patient was confused and took his seizure medication twice. His has been encouraging him to come to the hospital but patient refused. The EMS was called today and the patient was brought to the ED. In the ED, his temperature is 97.9 F, heart rate 82, blood pressure 130/61, respiratory rate was 22, SPO2 was 94% on room air. BC count was 6.0, hemoglobin 14.9, platelet 169, D-dimer 1.72, fibrinogen 604, sodium 140, potassium 3.5, chloride 112, bicarbonate 21, BUN 23, creatinine 1.48, no previous creatinine to compare. Lactic acid 1.7, LDH 544, CK 377. Procalcitonin 0.14, COVID-19 PCR positive. Chest x-ray shows increased markings in the right infra hilar region as well as in the left midlung. CTA chest showed bilateral pulmonary infiltrates in the peripheral regions. Hospital Course: 1. Acute hypoxic respiratory failure secondary COVID-19 pneumonia/SANDEEP/acute metabolic encephalopathy has resolved -Continue with Decadron, unlikely to benefit from remdesivir and convalescent plasma as he was symptomatic for 15 days prior to admission -He did have an increase in his oxygen requirement for 3 L to 8 L, chest x-ray was unremarkable he is currently back down to his 3 L can continue to diurese -Kidney function is stable and will tolerate further diuresis, his SANDEEP has resolved -We are able to obtain a concentrator that can go up to 10 L. He is at around 3 L at rest but requires closer to 7 or 8 L with ambulation. -He will need to follow-up with his PCP in 3 to 5 days as well as with pulmonology in 2 to 4 weeks to evaluate his oxygen requirements as well as to obtain an echo as an outpatient to evaluate for possible pulmonary hypertension and the initiation of chronic diuresis. -He has completed his Decadron course and his CTA on admission was negative for PE however he did have an elevated D-dimer therefore he can continue with his aspirin which he takes at baseline -I discussed the plan for discharge and he expressed understanding the risks and benefits of going home today. 2. Seizure disorder -Stable -Continue with Keppra and Topamax Patient Problems: Active and Suspected Problems COVID-19 (Acute) Confusion (Acute) Acute metabolic encephalopathy (Acute) - Physical Exam Vitals/I&O's: Vital Signs Temp Pulse Resp BP Pulse Ox 97.4 F L 80 20 H 125/68 H 96 01/16/20 11:18 01/16/20 11:24 01/16/20 11:18 01/16/20 11:18 01/16/20 11:24 Oxygen Flow Rate (L/min) [ 6 AMBULATION with Oxygen] Oxygen Flow Rate (L/min) 3.5 Oxygen Delivery Method Nasal Cannula Weight: 147 lb 7.828 oz Body Mass Index (BMI) 22.3 Intake and Output for Last 24 Hours 01/14/20 01/15/20 01/16/20 23:59 23:59 23:59 Intake Total 770 / 770 840 / 840 Output Total 700 / 700 Balance 70 / 70 840 / 840 General: Alert, Oriented x3, Cooperative, No apparent distress HEENT: Atraumatic, PERRLA, EOMI, Normocephalic Oral: Moist Mucosa Neck: Supple, No JVD Lungs: Normal air movement, No rhonchi, No wheeze, No rales, Diminished Cardiovascular: Regular rate, Regular Rhythm, Normal S1, Normal S2, No murmurs Abdomen: Soft, Non Tender, Non-Distended, No Hepato-splenomegaly Extremities: No edema, Capillary Refill Less than 3 Seconds Skin: No rashes, No breakdown Neurological: Neuro grossly intact, Sensory exam intact to light touch and pain Psych/Mental Status: Normal Affect, Appropriate Laboratory Results 01/16/20 09:35: Sodium 135 L, Potassium 3.4 L, Chloride 100, Carbon Dioxide 26.0, Anion Gap 9, BUN 41 H, Creatinine 1.21, Estim Creat Clear Calc 47.61, Est GFR (MDRD) Af Amer 75, Est GFR (MDRD) Non-Af 62, BUN/Creatinine Ratio 33.9 H, Glucose 101, Calcium 9.1 Current Medications Acetaminophen (Acetaminophen 325 Mg Tablet) 650 mg PO Q6H PRN PRN PRN Reason: Pain Score 1-10/Temp > 100.7 F Al Hydroxide/Mg Hydroxide (Mag Hydrox/Al Hydrox/Simeth 30 Ml Udc) 30 ml PO Q6H PRN PRN PRN Reason: Gastric Burning Albuterol Sulfate (Albuterol Sulfate 8 Gm Inhaler (60 Puffs)) 2 puff INHALATION Q4H PRN PRN PRN Reason: SOB &/OR WHEEZING Enoxaparin Sodium (Enoxaparin 30 Mg/0.3 Ml Syringe) 30 mg SC BID [facility] Last Admin: 01/16/20 11:13 Dose: 30 mg Documented by: Sodium Chloride () 250 mls @ 15 mls/hr IV .[id number] PRN PRN Reason: Saline Flush Sodium Chloride () 250 mls @ 15 mls/hr IV .[id number] PRN PRN Reason: Additional IVPB Infusion Levetiracetam (Levetiracetam 1,000 Mg Tablet) 1,000 mg PO BID [facility] Last Admin: 01/16/20 11:13 Dose: 1,000 mg Documented by: Ondansetron HCl (Ondansetron 4 Mg/2 Ml Vial) 4 mg IV Q8H PRN PRN PRN Reason: NAUSEA/VOMITING Sodium Chloride (0.9% Saline Lock 10 Ml Syringe) 10 - 40 ml IV UD PRN PRN Reason: SALINE FLUSH Last Admin: 01/14/20 13:01 Dose: 10 ml Documented by: Topiramate (Topiramate 50 Mg Tablet) 50 mg PO BID [facility] Last Admin: 01/16/20 11:12 Dose: 50 mg Documented by: Discharge Activity: Return to Normal Activity Call your doctor if you observe: Fever of 101 or Higher, Shortness of breath, Dizziness, Fainting spells, Swelling in the ankles, Chest pain, Increased palpitations (irregular heartbeat) Home Medications: Medications to take at Discharge Aspirin 81 mg PO 12/31/19 Topiramate 1 tab PO BID 12/31/19 levETIRAcetam tablet [Keppra tablet] 1,000 mg PO BID 12/31/19 Albuterol Inhaler [Ventolin Hfa] 2 puff INHALATION Q4H PRN PRN inhaler 01/16/20 Primary Care Physician: Levar Pedroza MD [Primary Care Provider] - Please follow up with your Primary Care Physician in: 3-5 days Please Follow Up With: Kris Chavez MD When: 2-4 weeks Disposition: Home Minutes spent on discharge:: 35 Patient Condition:: Stable Medical Necessity - Tobacco Use Smoking Status: Never smoker Tobacco Use: Non-smoker Meaningful Use Info Meaningful Use Diagnoses (Choose all that apply): None applicable Inpatient E&M: 92731 Disch Hosp
[2020-01-16 17:36] VITALS: BP 134/81; PULSE 90; RESP 18; TEMP 36.6; O2SAT 94
--- NOTE | 2020-01-16 20:45 | NURSING ---
This RN went over discharge instructions with patients and son. Patient was sent home with 2 oxygen tanks. This RN went over how to open second oxygen tank and written instruction was sent home to. This RN went over paperwork with them about home health 02 and encouraging them to call tomorrow morning for home 02. Fax paperwork was sent from [facility]. Questions answered by this RN to the best of her ability. Patient left hospital 02 4L via tank 02, respirations easy and unlabored.
== END 2020-01-16 20:15 | disposition home or self-care (01) | DRG 177 ==
LOC: ED 12:29 → MS2 13:03
PROVIDERS: Internal Medicine Critical Care Medicine; Internal Medicine Infectious Disease; Admitting Provider Internal Medicine; Emergency Provider Emergency Medicine; PCP Internal Medicine; Visit Provider Family Medicine
DX: U07.1 COVID-19 (principal); J12.89 Other viral pneumonia; G93.41 Metabolic encephalopathy; J96.01 Acute respiratory failure with hypoxia; E43 Unspecified severe protein-calorie malnutrition; Z68.22 Body mass index [BMI] 22.0-22.9, adult; N17.9 Acute kidney failure, unspecified; G40.909 Epilepsy, unspecified, not intractable, without status epilepticus; N18.30 Chronic kidney disease, stage 3 unspecified; Z86.73 Personal history of transient ischemic attack (TIA), and cerebral infarction without residual deficits; F03.90 Unspecified dementia, unspecified severity, without behavioral disturbance, psychotic disturbance, mood disturbance, and anxiety; Z79.82 Long term (current) use of aspirin; Z79.899 Other long term (current) drug therapy
CPT/HCPCS: 36415; 70450; 70551; 71045; 71275; 80048; 80053; 82550; 83605; 83615; 83880; 84145; 84484; 85025; 85379; 85384; 87040; 87633; 87635; 93005; 99251; 99285; J7030; Q9967; A4216; G0463; J1940; U0002

== ENCOUNTER → 2020-05-24 11:03 | Outpatient (CLI) | payer MEDICARE, SELFPAY ==
[2020-02-09 11:02] VITALS: BMI 20.5
[2020-05-24 11:51] VITALS: PULSE 57; PULSE 82; PULSE 83; PULSE 86; PULSE 89; PULSE 90; O2SAT 93; O2SAT 94; O2SAT 95; O2SAT 96; O2SAT 97
--- NOTE | 2020-05-24 11:55 | CPS ---
Mr. Ferguson in hospital with COVID Dec 30 to Jan 15 he wore 3 lpm O2 at night up to 3 weeks ago.
--- NOTE | 2020-05-25 10:24 | WT_ITS ---
PSN 6 Minute Walk Test - 6 Minute Walk Test 6 Minute Walk Test: 6 Minute Walk Test PSN:6-Minute Walk Test Start: 05/24/20 11:50 Freq: Status: Active Protocol: [id number].6MINW Document 05/24/20 11:51 FR (Rec: 05/24/20 11:56 FR [id number]) 6 Minute Walk Test Date Performed 05/24/20 Time Performed 11:00 Height 5 ft 10 in Weight: 162 lb Weight in Pounds 162.[address]: Dr. Jaquez Assistive device used: None Pre-test Oxygen Delivery Method Room Air Pulse Ox (%) 95 Pulse Rate (60-100 beats/min) 57 L Dyspnea [place] Scale (0-10) 0 Exertion [place] Scale (6-20) 6 1st minute Oxygen Delivery Method Room Air Pulse Ox (%) 97 Pulse Rate (60-100 beats/min) 83 2nd minute Oxygen Delivery Method Room Air Pulse Ox (%) 96 Pulse Rate (60-100 beats/min) 82 3rd minute Oxygen Delivery Method Room Air Pulse Ox (%) 94 Pulse Rate (60-100 beats/min) 86 4th minute Oxygen Delivery Method Room Air Pulse Ox (%) 93 Pulse Rate (60-100 beats/min) 90 5th minute Oxygen Delivery Method Room Air Pulse Ox (%) 93 Pulse Rate (60-100 beats/min) 86 6th minute Oxygen Delivery Method Room Air Pulse Ox (%) 94 Pulse Rate (60-100 beats/min) 89 Dyspnea [place] Scale (0-10) 1 Exertion [place] Scale (6-20) 7 Post-test Oxygen Delivery Method Room Air Pulse Ox (%) 93 Dyspnea [place] Scale (0-10) 63 Full Laps Walked 22 Partial Lap, Number of Tiles Walked 18 Total Distance Walked (ft) 1316 05/24/20 11:55 Cardiopulmonary Services by Mona Villaseñor Mr. Ferguson in hospital with COVID Dec 30 to Jan 15 he wore 3 lpm O2 at night up to 3 weeks ago. Initialized on 05/24/20 11:55 - END OF NOTE - Interpretation Interpretation: The patient ambulated 1316 feet over the course of 6 minutes beginning on room air without any assistive devices. Pretesting oxygen saturation was noted to be 95% on room air. With ambulation, the [place] oxygen saturation was 93%. There was no significant exertional oxygen desaturation. - Recommendations Recommendations: There is no indication for the use of supplemental oxygen at this time.
== END ==
PROVIDERS: PCP Internal Medicine; Referring Provider Nurse Practitioner Acute Care; Visit Provider Nurse Practitioner Acute Care
DX: U07.1 COVID-19 (principal)
CPT/HCPCS: 94618

== ENCOUNTER 2023-08-01 12:13 | Emergency (ER) | payer MEDICARE, SELFPAY ==
[2023-08-01 12:14] VITALS: BP 168/95; PULSE 62; RESP 18; TEMP 36.6; O2SAT 98; BMI 22.8
--- NOTE | 2023-08-01 12:34 | EX.ED.DYSGE1 ---
HPI History of Present Illness Chief Complaint: Complaint Informant: patient Onset/Context/Timing Onset: Yesterday Narrative Narrative: Patient present secondary to lower abdominal pain and not being able to urinate. He states he feels the urge to urinate but is not able to pass any urine. Symptoms been ongoing since 6 PM last evening. He denies history of similar or any known problems with his prostate. He does have chronic kidney disease. He takes medication at home for seizures, but has not been taking any new medications or any rvhr-vpa-pmysirv cold medicines. [facility] Medical History Stroke/cerebrovascular accident History of sleep apnea History of seizures Home Medications ?Medication ?Instructions ?Recorded ?Last Taken ?Type aspirin 81 mg chewable tablet 81 mg PO heart 12/31/19 12/31/19 History topiramate 50 mg tablet 1 tab PO BID seizures 12/31/19 Unknown History albuterol sulfate 90 mcg/actuation 2 puff inhalation Q4H PRN PRN SOB 01/16/20 Unknown Rx aerosol inhaler &/OR WHEEZING levetiracetam 500 mg tablet 1,500 mg PO BID 02/09/20 Unknown History tamsulosin 0.4 mg capsule (Flomax) 0.4 mg PO DAILY #30 caps 08/01/23 Unknown Rx Allergy/AdvReac Type Severity Reaction Status Date / Time No Known Allergies Allergy Verified 08/01/23 12:14 Family History Mother Diabetes Father Diabetes Surgical History No pertinent past surgical history Social History Smoking Status: Never smoker alcohol intake: never substance use type: does not use ROS ROS ED Constitutional Constitutional ED: Denies chills or fever(s) Eyes Eyes: Denies change in vision or discharge from eye(s) ENT ENT ED: Denies discharge from eye(s), rhinorrhea or sore throat Cardiovascular Cardiovascular: Denies chest pain or palpitations Respiratory/Chest Respiratory/Chest: Denies cough or dyspnea Gastrointestinal Gastrointestinal: Reports abdominal pain; Denies diarrhea, nausea or vomiting Genitourinary Genitourinary ED: Reports difficulty urinating Musculoskeletal Musculoskeletal: Denies back pain or extremity pain Integumentary Denies Abrasions or rash Neurologic Neurologic: Denies headache(s) or weakness Psychiatric Psychiatric: Denies anxiety or depression Allergic/Immunologic Allergic/Immunologic ED: Denies lip swelling or urticaria EXAM Physical Exam Const Vital Signs: 08/01/23 12:14 08/01/23 14:13 Temperature 97.8 F Temperature Source Temporal Pulse Rate 62 77 Respiratory Rate 18 17 Blood Pressure 168/95 H 155/88 H Blood Pressure Mean 119 110 Pulse Ox 98 99 Oxygen Delivery Method Room Air Room Air Positive well nourished and well developed General Appearance ED: well developed HEENT Reports moist mucous membranes Eyes EOMs intact bilaterally Chest Wall inspection of chest normal and palpation of chest normal Resp normal respiratory effort and clear to auscultation bilaterally Cardio regular rate and regular rhythm GI GI Narrative: Abdomen soft with mild diffuse tenderness. No guarding or rebound. Extremity normal to inspection Neuro oriented x3 and no sensory deficits noted Motor Exam: strength 5/5 throughout Psych mental status grossly normal Skin no rashes or lesions noted MDM MDM MDM Narrative Medical decision making narrative: Bladder scan was performed by nursing staff. Patient has over 400 cc of urine retained. Stephens catheter ordered along with Uro-Jet to assist with Stephens placement. Patient already has a line in place and labs were drawn by EMS. We will check CBC and chemistry studies to evaluate renal function given his chronic kidney disease. Urinalysis will be sent to evaluate for possible infection. History & Record Review Discussion w/independent historian: Patient and Significant other Lab Data Attestation: I reviewed the patient's lab results. Labs: Laboratory Results - last 24 hr 08/01/23 08/01/23 11:40 13:12 WBC 13.3 H RBC 5.11 Hgb 16.0 Hct 48.1 MCV 94.1 H MCH 31.3 MCHC 33.3 RDW Std Deviation 45.2 H RDW Coeff of Lisandro 13.0 Plt Count 217 MPV 10.8 Immature Gran % (Auto) 0.800 Neut % (Auto) 84.3 H Lymph % (Auto) 7.2 L Bullock % (Auto) 7.2 Eos % (Auto) 0.1 Baso % (Auto) 0.4 Absolute Neuts (auto) 11.2 H Absolute Lymphs (auto) 0.95 Nucleated RBC % 0 Sodium 138 Potassium 3.8 Chloride 109 H Carbon Dioxide 21.0 Anion Gap 8 BUN 20 H Creatinine 1.84 H Estim Creat Clear Calc 31.65 Est GFR (MDRD) Af Amer 46 L Est GFR (MDRD) Non-Af 38 L BUN/Creatinine Ratio 10.9 Glucose 97 Calcium 9.3 Urine Color Straw Urine Clarity Clear Urine pH 6.5 Ur Specific [place] 1.010 Urine Protein Negative Urine Glucose (UA) Normal Urine Ketones Negative Urine Occult Blood 25 H Urine Nitrite Negative Urine Bilirubin Negative Urine Urobilinogen Normal Ur Leukocyte Esterase Negative Urine RBC 0 SEEN Urine WBC 0 SEEN Ur Squamous Epith Cells 0 SEEN Urine Bacteria 0 SEEN Urine Mucus 0 SEEN Treatment and Re-Evaluation :: CBC with a white count of 13.3 with 84% neutrophils. Hemoglobin is 16.0. Chemistry studies significant for BUN of 20 and a creatinine of 1.84. Last labs available for comparison are from 3-1/2 years ago. At that time his creatinine was 1.21. Stephens catheter was placed by nursing staff. She noted only slight resistance at the prostate. Urinalysis reveals no evidence of acute infection or hematuria. On repeat examination patient does feel significantly improved. At the time of my exam he has approximately 800 cc of urine in the catheter bag. He will be discharged home with a leg bag and we will start him on Flomax. He will follow-up with his primary care physician but I will also give him information for Dr. Bush for follow-up as needed. Discharge Plan Triage Chief Complaint: Complaint Other Complaint: Abd Pain ED Provider: Viji Norwood Dx/Rx/DC Orders Clinical Impression: Urinary retention Instructions: ED Stephens Catheter, Care, ED Urinary Retention, Male Prescriptions: New tamsulosin [Flomax] 0.4 mg capsule 0.4 mg PO DAILY Qty: 30 0RF No Action levetiracetam 500 mg tablet 1,500 mg PO BID aspirin 81 MG tablet,chewable 81 mg PO topiramate 50 MG tablet 1 tab PO BID albuterol sulfate 1 INHALER inhaler 2 puff INHALATION Q4H PRN PRN (Reason: SOB &/OR WHEEZING) 0RF Primary Care Provider: Leavr Pedroza Referrals: Uvaldo Bush MD [Med Staff - Active Staff] - As Needed Levar Pedroza MD [Primary Care Provider] - 1 Week Print Language: Kazakh Disposition Disposition: Home, Self Care
[2023-08-01] MEDS: Lidocaine Jelly 2% 20 ML Syringe (URO-JET) 1 APPLIC TOPICAL (12:56)
[2023-08-01 12:58] LABS: Absolute Lymphocyte Count 0.95 X10^3/uL (0.83-4.51); Absolute Neutrophil Count 11.2 X10^3/uL (2.0-7.7); Basophil# 0.05 X10^3/uL; Basophil% 0.4 % (0-1); Eosinophil# 0.01 X10^3/uL; Eosinophils% 0.1 % (0-5); Hematocrit 48.1 % (40-54); Lymphocyte # 0.95 X10^3/ul (0.83-4.51); Lymphocyte % 7.2 % (19-41); Mean Corp Hgb Conc 33.3 g/dL (32-36); Mean Corpuscular Hgb 31.3 pg (27.0-32.0); Mean Corpuscular Volume 94.1 fL (80-94); Mean Platelet Vol. 10.8 fl (6.2-12.0); Monocyte# 0.95 X10^3/uL; Monocyte% 7.2 % (0-10); NRBC Flagged by Analyzer 0 % (0-5); Neutrophil # 11.18 X10^3/uL (2.7-7.7); Neutrophil % 84.3 % (47-70); Platelet Count 217 K/mm3 (150-450); RBC Distribution Width SD 45.2 fl (35.1-43.9); Red Blood Count 5.11 M/mm3 (4.6-6.2); White Blood Count 13.3 K/mm3 (4.4-11.0)
[2023-08-01 13:17] LABS: Anion Gap 8 (5-15); BUN 20 mg/dL (7-18); BUN/Creat Ratio 10.9 RATIO (10-20); Calcium,Total 9.3 mg/dL (8.5-10.1); Chloride 109 mmol/L (98-107); Creatinine, Serum 1.84 mg/dL (0.70-1.30); EST Glomerular Filtration Rate 38 mL/min (>60); Est Glom Filt Rate - Afr Amer 46 mL/min (>60); Estimated Creatinine Clearance 31.65 ml/min; Glucose 97 mg/dL (74-106); Potassium 3.8 mmol/L (3.5-5.1); Sodium Level 138 mmol/L (136-145)
[2023-08-01 13:18] LABS: Bacteria 0 SEEN /hpf (None Seen); Mucous, Urine 0 SEEN /hpf (<or=2+); Red Blood Cells-Urine 0 SEEN /hpf (0-5); Squamous Epithelial Cells - UA 0 SEEN /hpf (0-5); White Blood Cells 0 SEEN /hpf (0-5)
[2023-08-01 13:27] LABS: Color, Urine Straw (Yellow); Glucose, Dipstick Normal (Normal); Ketone-Dipstick Negative (Negative); Leukocyte Esterase-Dipstick Negative /ul (Negative); Nitrite-Dipstick Negative (Negative); Occult Blood-Urine 25 /ul (Negative); Protein-Dipstick Negative (Negative); Urine Bilirubin Dipstick Negative (Negative); Urine Clarity Clear (Clear); Urine Urobilinogen Normal (Normal); Urine pH 6.5 (5.0 - 8.0)
[2023-08-01 14:13] VITALS: BP 155/88; PULSE 77; RESP 17; O2SAT 99
[2023-08-01 15:02] VITALS: BP 168/74; PULSE 85; RESP 20; TEMP 36.1; O2SAT 95
== END 2023-08-01 15:03 | disposition home or self-care (01) ==
PROVIDERS: Emergency Provider Emergency Medicine; PCP Internal Medicine; Visit Provider Emergency Medicine
DX: R10.30 Lower abdominal pain, unspecified (principal); R56.9 Unspecified convulsions; N18.9 Chronic kidney disease, unspecified; R33.9 Retention of urine, unspecified; Z79.899 Other long term (current) drug therapy; Z86.73 Personal history of transient ischemic attack (TIA), and cerebral infarction without residual deficits
CPT/HCPCS: 51702; 80048; 81001; 85025; 99284

== ENCOUNTER → 2023-08-13 | Outpatient (CLI) | payer MEDICARE, SELFPAY | END | disposition home or self-care (01) | LOC: LAB 11:12 | PROVIDERS: PCP Internal Medicine; Referring Provider Nurse Practitioner; Visit Provider Nurse Practitioner | DX: Z12.5 Encounter for screening for malignant neoplasm of prostate (principal) | CPT/HCPCS: 36415; 84153; G0103 ==

== ENCOUNTER 2023-08-15 07:31 | Emergency (ER) | payer MEDICARE, SELFPAY ==
[2023-08-15 07:32] VITALS: BP 152/63; PULSE 63; RESP 14; TEMP 36.3; O2SAT 98; BMI 23.2
--- NOTE | 2023-08-15 07:55 | EDS_ITS ---
HPI History of Present Illness Chief Complaint: Complaint Informant: patient and spouse/S.O. Narrative Narrative: 83-year-old male presenting to the emergency room with a chief complaint of inability urinate. Patient was seen in the emergency department at the end of July had a Stephens catheter placed for the first time for urinary retention. Patient has subsequently followed up with urology on Saturday and was given instructions on self cathing. Family states that they have been trying to self cath but several times they have not been able to get any urine out. Patient states he no longer wishes to self cath and would like an indwelling catheter. Family states that there was some blood clots in the urine this morning. He denies any nausea vomiting diarrhea or fevers. He has been eating and drinking normally. [facility] Medical History Stroke/cerebrovascular accident History of sleep apnea History of seizures Home Medications ?Medication ?Instructions ?Recorded ?Last Taken ?Type aspirin 81 mg chewable tablet 81 mg PO heart 12/31/19 12/31/19 History topiramate 50 mg tablet 1 tab PO BID seizures 12/31/19 Unknown History albuterol sulfate 90 mcg/actuation 2 puff inhalation Q4H PRN PRN SOB 01/16/20 Unknown Rx aerosol inhaler &/OR WHEEZING levetiracetam 500 mg tablet 1,500 mg PO BID 02/09/20 Unknown History tamsulosin 0.4 mg capsule (Flomax) 0.4 mg PO DAILY #30 caps 08/01/23 Unknown Rx cefpodoxime 200 mg tablet 200 mg PO Q12H #14 tabs 08/15/23 Unknown Rx Allergy/AdvReac Type Severity Reaction Status Date / Time No Known Allergies Allergy Verified 08/15/23 07:48 Family History Mother Diabetes Father Diabetes Surgical History No pertinent past surgical history Social History Smoking Status: Never smoker alcohol intake: never substance use type: does not use ROS ROS ED Constitutional Constitutional ED: Denies chills, fever(s) or weight loss Eyes Eyes: Denies change in vision or diplopia ENT ENT ED: Denies ear pain, rhinorrhea or sore throat Cardiovascular Cardiovascular: Denies chest pain, orthopnea, palpitations or racing heartbeat Respiratory/Chest Respiratory/Chest: Denies cough, dyspnea or orthopnea Gastrointestinal Gastrointestinal: Denies abdominal pain, diarrhea, nausea or vomiting Genitourinary Genitourinary ED: Reports hematuria and other Details: See history of present illness ; Denies dysuria or urinary frequency Musculoskeletal Musculoskeletal: Denies arthralgias or myalgias Integumentary Denies abscess or rash Neurologic Neurologic: Denies headache(s) or weakness Psychiatric Psychiatric: Denies anxiety, depression, suicidal ideation or suicidal thoughts Endocrine Endocrinology: Denies polydipsia, polyphagia or polyuria Allergic/Immunologic Allergic/Immunologic ED: Denies mouth swelling, tongue swelling or urticaria EXAM Physical Exam Const Vital Signs: 08/15/23 07:32 08/15/23 10:26 Temperature 97.3 F L 97.1 F L Temperature Source Temporal Pulse Rate 63 62 Respiratory Rate 14 15 Blood Pressure 152/63 H 124/63 H Blood Pressure Mean 92 83 Pulse Ox 98 98 Oxygen Delivery Method Room Air Positive well nourished and well developed General Appearance ED: well developed HEENT Reports normocephalic, head/scalp atraumatic and moist mucous membranes Eyes PERRL and EOMs intact bilaterally Neck no lymphadenopathy, supple and no JVD Resp normal respiratory effort and clear to auscultation bilaterally Cardio regular rate, regular rhythm and no murmurs GI normal to inspection, nondistended, normoactive bowel sounds and non-tender Palpation: soft Narrative: Circumcised male. No significant genitalia findings Back/Spine no CVA tenderness and normal ROM Extremity normal to inspection General Extremety ED: Negative for edema General Extremity: Negative for edema Neuro oriented x3 and CN's II-XII intact bilaterally Sensorium / Orientation: alert Motor Exam: strength 5/5 throughout Psych mental status grossly normal Mood & Affect: Negative for depressed or tearful Skin no rashes or lesions noted and no wounds MDM MDM MDM Narrative Medical decision making narrative: Differential diagnosis includes but not limited to urethral and bladder trauma, UTI, urinary retention, diverticulitis bowel obstruction paraphimosis/phimosis false lumen Stephens catheter was placed by nursing without difficulty. Return of yellow urine was noted. This was sent for evaluation. White counts 5-10 with 1+ bacteria 0 squamous cells seen 0-5 red cells seen. Negative nitrates. This will be sent for culture. As mentioned in the history the patient does not have any further interest in self cathing. Patient will be discharged home with a Stephens catheter in place. I will place him on cefpodoxime. History & Record Review Discussion w/independent historian: Patient and Significant other Lab Data Attestation: I reviewed the patient's lab results. Labs: Laboratory Results - last 24 hr 08/15/23 07:55 Urine Color LUTHER Urine Clarity Clear Urine pH 5.0 Ur Specific [place] 1.020 Urine Protein 30 H Urine Glucose (UA) Normal Urine Ketones Negative Urine Occult Blood 250 H Urine Nitrite Negative Urine Bilirubin Negative Urine Urobilinogen 1 H Ur Leukocyte Esterase 100 H Urine RBC 0-5 SEEN Urine WBC 5-10 SEEN Ur Squamous Epith Cells 0 SEEN Urine Bacteria 1+ Urine Mucus 1+ Discharge Plan Triage Chief Complaint: Complaint ED Provider: Irvin Miller Dx/Rx/DC Orders Clinical Impression: Acute on chronic urinary retention, Cystitis Instructions: ED Stephens Catheter, Care, ED Urinary Retention, Male Prescriptions: New cefpodoxime 200 mg tablet 200 mg PO Q12H Qty: 14 0RF Rx Instructions: must administer with a meal/food No Action levetiracetam 500 mg tablet 1,500 mg PO BID aspirin 81 MG tablet,chewable 81 mg PO topiramate 50 MG tablet 1 tab PO BID albuterol sulfate 1 INHALER inhaler 2 puff INHALATION Q4H PRN PRN (Reason: SOB &/OR WHEEZING) 0RF tamsulosin [Flomax] 0.4 mg capsule 0.4 mg PO DAILY Qty: 30 0RF Primary Care Provider: Levar Pedroza Referrals: Uvaldo Bush MD [Med Staff - Active Staff] - As soon as possible (Please call to update the office regarding your inability to successfully self catheterize and placement of Stephens catheter) Levar Pedroza MD [Primary Care Provider] - Print Language: Slovak Disposition Disposition: Home, Self Care Discharge Date/Time: 08/15/23 10:32
[2023-08-15 08:08] LABS: Squamous Epithelial Cells - UA 0 SEEN /hpf (0-5)
[2023-08-15 08:23] LABS: Glucose, Dipstick Normal (Normal); Ketone-Dipstick Negative (Negative); Leukocyte Esterase-Dipstick 100 /ul (Negative); Nitrite-Dipstick Negative (Negative); Occult Blood-Urine 250 /ul (Negative); Protein-Dipstick 30 mg/dl (Negative); Urine Bilirubin Dipstick Negative (Negative); Urine Urobilinogen 1 mg/dl (Normal)
[2023-08-15 08:32] LABS: Color, Urine AMBER (Yellow); Urine Clarity Clear (Clear)
[2023-08-15 08:38] LABS: Bacteria 1+ /hpf (None Seen); Mucous, Urine 1+ /hpf (<or=2+); Red Blood Cells-Urine 0-5 SEEN /hpf (0-5); White Blood Cells 5-10 SEEN /hpf (0-5)
[2023-08-15 10:26] VITALS: BP 124/63; PULSE 62; RESP 15; TEMP 36.2; O2SAT 98
--- NOTE | 2023-08-15 10:26 | ED.RN ---
PT WAS VERY AGGITATED THAT HE WAS SITTING IN THE ER FOR SO LONG. PT GOT VERY VERBALLY AGGRESSIVE WITH THE LIME MIXER TENDER AND WAS DEMANDING HE NEEDED SERVICE NOW. 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 THIS NURSE THEN WENT IN AND EXPLAINED THE REASONS FOR THE DELAY AND THAT HE WAS WELCOME TO GET DRESSED IF THAT HELPED. HE CONTINUED TO DEMAND SERVICE AND STATES HE KNEW HOW ALL THESE THINGS WORKED. EXPLAINED TO PT THAT TIMES HAVE CHANGED AND THE AMOUNT OF PEOPLE SEEN IN THE ER HAS INCREASED SINCE HE RAN EMS. ALSO EXPLAINED WHAT THINGS CAN BE TREATED BY THE PTS DR IN THE EVENT THIS SITUATION ARISES. HE WAS STILL NOT SETTLING DOWN. AND SON KEPT APOLOGIZING. [facility] ARRIVED TO TALK WITH PT
== END 2023-08-15 10:32 | disposition home or self-care (01) ==
PROVIDERS: Emergency Provider Emergency Medicine; PCP Internal Medicine; Visit Provider Emergency Medicine
DX: R33.9 Retention of urine, unspecified (principal); N30.90 Cystitis, unspecified without hematuria; Z86.73 Personal history of transient ischemic attack (TIA), and cerebral infarction without residual deficits
CPT/HCPCS: 51702; 81001; 87086; 99284

== ENCOUNTER 2023-09-04 13:58 | Inpatient (IN) | payer MEDICARE, SELFPAY ==
--- NOTE | 2023-08-27 08:52 | EKG12_ITS ---
Test Reason : PRE OP Blood Pressure : / mmHG Vent. Rate : 049 BPM Atrial Rate : 049 BPM P-R Int : 188 ms QRS Dur : 088 ms QT Int : 446 ms P-R-T Axes : 080 030 028 degrees QTc Int : 402 ms Sinus bradycardia Inferior infarct , age undetermined Abnormal ECG Confirmed by Ortega Haney ([id number]), supervising film or videotape editor EDWIN SCOTT ([id number]) on 08/28/2023 9:28:30 AM Referred By: Uvaldo Bush Confirmed By:Ortega Haney
[2023-08-27 11:15] LABS: Partial Thromboplast Time 28.9 Seconds (24.1-36.2)
[2023-09-04] VITALS (13 sets, daily range): BP systolic 154–183; BP diastolic 45–80; PULSE 48–76; RESP 16; TEMP 35.8–36.8; O2SAT 95–100; BMI 22.8
--- NOTE | 2023-09-04 | IMM_PTH ---
PATIENT: PETER JENSEN LOC: MS3 U#:[id number] AGE/SX: 83/M ROOM: [facility] RE09/04/[address]: Dr. Uvaldo Bush MD : 1940 BED: 1 DIS: 09/05/2023 SPEC #: [id number] RECD: 09/23/23 10:06 STATUS: PROSPER REPaul #: [id number] RADHA: 09/04/23 00:[address]: Uvaldo Bush DEPT: IMMUNOHISTOCHEMISTRY RECD BY: Reinaldo Read ENTERED: 09/23/23 10:06 SP TYPE: IMMUNO OTHR DR: MD Dr. Robson Garrett DO Tissues: A - Prostate, NOS B - PROSTATE BIOPSY Procedures: CK20 (add) CK7 (add) CK8 (add) Pankeratin (initial) Pankeratin (add) PSAP (add) CK7 (initial) PHYSICIAN & [address] [address] SPECIMEN INFORMATION: Tissue Source: A- Prostate chips, B- Prostate biopsy Clinical Info: Benign prostatic hyperplasia with lower urinary tract symptoms Specimen Number: [id number] A, B CPT code: 05697x3,43936k1 METHODOLOGY: Deparaffinized sections of prefer/formalin-fixed tissue or PAP/DQ stained slides are incubated with monoclonal/polyclonal antibodies/oligonucleotide probes. Localization is made via biotin free immunoperoxidase method. Appropriate controls are performed and reacted as expected. Results on target cell population are indicated in the following table: RESULTS: ANTIBODY / CLONE RESULT Block A AE1-3 (AE1/AE3/PCK26) negative CK7 (OV-TL12/30) negative CK8 (65qinrU94) positive CK20 (KS20.8) negative PSAP (PASE/4LJ) positive Block B AE1-3 (AE1/AE3/PCK26) negative CK7 (OV-TL12/30) negative CK8 (02dsgeU90) positive CK20 (KS20.8) negative PSAP (PASE/4LJ) positive These tests were developed and their performance characteristics determined by [facility]. They may not have been cleared or approved by the U.S. Food and Drug Administration. The FDA has determined that such clearance or approval is not necessary. The above immunohistochemical/dualISH markers are ordered and reviewed by the Pathologist. INTERPRETATION: A. 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 B. 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 Case has been reviewed in consultation with Dr. Hill who concurs with the above diagnosis. IDC:DHARMESH VÁZQUEZ/ 09/24/2023
[2023-09-04] MEDS: Lactated Ringers 1,000 ML 15 ML IV (13:09)
--- NOTE | 2023-09-04 13:26 | PRE.ANES_ITS ---
ASA Classification* ASA Classification ASA Classification: 3 Assessment & Plan Anesthesia* Anesthesia Assessment Anesthesia Assessment: Discussed sedation and/or anesthesia options, risks, benefits, and alternatives with patient/parents/legal guardian/POA. Questions invited. The patient/parents/legal guardian/POA seems to understand and agrees to proceed with anesthesia plan. Reviewed the physical assessment, medical history, allergy history and patient home medications list prior to surgery/procedure/anesthetic and documented any changes. Performed airway and anesthesia risk assessments. Anesthesia Type Anesthesia Type: General History Source History Obtained from:: Patient and Chart Anesthesia Focused Assessment* Temperature: 97.3 F Pulse Rate: 61 Blood Pressure: 154/60 Respiratory Rate: 16 Pulse Ox: 96 Oxygen Delivery Method: Room Air Airway Assessment Mouth opens: 2 cm Mallampati Score: III Teeth Condition: Dentures, Full (Top is out.) and Missing (Few missing on the bottom. Rest are tight.) Neck Range of motion (ROM): Full ROM Pertinent Findings EKG Pertinent Findings:: August 27, 2023. Sinus bradycardia heart rate of 49 bpm. 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 When Was Last Pacemaker Check QUESTION #4 FULL TEXT: You/Your Family Experience fever (hyperthermia) with Anesthesia Last Oral Intake Last Oral intake: Last Oral Intake NPO since 00:00 09/04/23 13:05 Meds taken in AM with sips of Yes 09/04/23 13:05 water? 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 Female No 08/22/23 13:17 HX of Motion Sickness No 08/22/23 13:17 HX of N/V After Surgery No 08/22/23 13:17 Non-Smoker Yes 08/22/23 13:17 Duration of Surgery greater No 08/22/23 13:17 than 60 minutes Number of Risk Factors 1 08/22/23 13:17 PONV Score Low Risk 08/22/23 13:17 Height & Weight Height & Weight: Anesthesia: Height & Weight Height 5 ft 10 in 09/04/23 13:05 Weight: 72.121 kg 09/04/23 13:05 Body Mass Index (BMI) 22.8 09/04/23 13:05 Respiratory Assessment Respiratory Assessment - small business representative: Respiratory Tract Infection Hx - small business representative Hx Respiratory Tract Infection No 08/22/23 13:17 STOP Sleep Apnea STOP Sleep Apnea - small business representative: STOP Sleep Apnea - small business representative Hx Hypertension No 08/22/23 13:17 Hx Sleep Apnea No 08/22/23 13:17 CPAP Yes 12/31/19 15:13 BIPAP No 12/31/19 15:13 Do you snore loudly (louder No 08/22/23 13:17 than talking or can be heard Do you often feel tired/ No 08/22/23 13:17 fatigued/ sleepy during daytime? Has anyone observed you stop No 08/22/23 13:17 breathing during sleep? STOP Results Negative 08/22/23 13:17 QUESTION #5 FULL TEXT : Do you snore loudly (louder than talking or can be heard through closed doors)? Tobacco Use History Tobacco Use History - small business representative: Tobacco Use History - small business representative Tobacco Use Smoking Status Never smoker 08/22/23 13:17 Hx Tobacco Use No 08/22/23 13:17 Years Smoking Packs Smoked per Day Smoking Cessation Date was within the last 15 years Hx Smoking Cessation Date Hx Smoking Cessation Counseling Hematologic Medial History Hematologic Hx - small business representative: Hematologic Medical Hx - documentation liaison Hx of Blood Transfusion No 08/22/23 13:17 Hx of Transfusion in last 3 No 08/22/23 13:17 Months Date of Last Transfusion (if within last 3 months) Ever experience any problems No 08/22/23 13:17 with transfusion(s)? Specify any problems Hx of Preganancy in last 3 N/A 08/22/23 13:17 Months Nurse Filling Out Transfusion NBUCHER 08/22/23 13:17 & Questions: Date: 08/22/23 08/22/23 13:17 Time: 13:19 08/22/23 13:17 Patient unable to answer at this time (ie. confused, unrespo /Reproduction History /Reproductive History - small business representative: /Reproductive Hx- small business representative Hx Now No 08/22/23 13:17 Gestational Age (in weeks): EDC: Hx Hx Para Hx Section SAB No 08/22/23 13:17 Active Medications Active Medications: Current Medications Generic Name Dose Route Start Last Admin Trade Name Freq PRN Reason Stop Dose Admin Lactated Ringer's 1,000 mls @ 15 mls/hr 09/04/23 12:45 09/04/23 13:09 IV 15 mls/hr .Q48H BIPIN Administration PFSH Medical History BPH (benign prostatic hyperplasia) Prostate disease Wears dentures Wears glasses Non-smoker Shortness of breath on exertion Stroke/cerebrovascular accident (~2015) History of sleep apnea History of seizures Home Medications ?Medication ?Instructions ?Recorded ?Last Taken ?Type aspirin 81 mg chewable tablet 81 mg PO DAILY heart 12/31/19 08/20/23 History topiramate 50 mg tablet 1 tab PO BID seizures 12/31/19 09/04/23 07:00 History levetiracetam 500 mg tablet 1,500 mg PO BID 02/09/20 09/04/23 07:00 History tamsulosin 0.4 mg capsule (Flomax) 0.4 mg PO DAILY BLADDER RETENTION 08/01/23 Unknown Rx #30 caps cefpodoxime 200 mg tablet 200 mg PO Q12H #14 tabs 08/15/23 Unknown Rx Allergy/AdvReac Type Severity Reaction Status Date / Time No Known Allergies Allergy Verified 09/04/23 13:03 Family History Mother Diabetes Father Diabetes Surgical History No pertinent past surgical history Social History Smoking Status: Never smoker alcohol intake: never substance use type: does not use Review of Systems (Anesthesia) ROS Narrative System reviewed and no additional complaints, except as documented.
--- NOTE | 2023-09-04 13:56 | HP.PCM_ITS ---
[facility] - General General Date of Service: 09/04/23 Chief Complaint: Retention of urine and elevated PSA HPI Narrative PETER JENSEN, is a 83 M who presents for transurethral resection of the prostate for retention of urine also has a very high PSA and suspect he has prostate cancer. To talk about the risk of surgery bleeding infection poor bladder control afterwards incontinence and leakage scar tissue formation. Will be kept overnight and probably stay in the hospital day or 2 to recover. [facility] Medical History (Updated 09/04/23 @ 13:[address] Uvaldo Bush MD) BPH (benign prostatic hyperplasia) Prostate disease Wears dentures Wears glasses Non-smoker Shortness of breath on exertion Stroke/cerebrovascular accident (~2015) History of sleep apnea History of seizures Home Medications ?Medication ?Instructions ?Recorded ?Last Taken ?Type topiramate 50 mg tablet 1 tab PO BID seizures 12/31/19 09/04/23 07:00 History levetiracetam 500 mg tablet 1,500 mg PO BID 02/09/20 09/04/23 07:00 History ciprofloxacin HCl 500 mg tablet 500 mg PO BID #14 tabs 09/04/23 Unknown Rx (Cipro) Allergy/AdvReac Type Severity Reaction Status Date / Time No Known Allergies Allergy Verified 09/04/23 13:03 Family History Mother Diabetes Father Diabetes Surgical History No pertinent past surgical history Social History Smoking Status: Never smoker alcohol intake: never substance use type: does not use ROS Constitutional Constitutional: Denies chills, fever(s) or malaise Eyes Eyes: Denies blurry vision or change in vision ENT HEENT: Reports none Cardiovascular Cardiovascular: Denies chest pain or palpitations Respiratory/Chest Respiratory/Chest: Denies cough or shortness of breath with exertion Gastrointestinal Gastrointestinal: Denies abdominal pain, constipation or diarrhea Musculoskeletal Musculoskeletal: Denies back pain, joint stiffness or joint swelling Integumentary Integumentary: Denies dry skin, jaundice, lesions or rash Neurologic Neurologic: Denies confusion, syncope or weakness Psychiatric Psychiatric: Reports none; Denies anxiety or depression Endocrine Endocrinology: Denies excessive sweating, fatigue or flushing Hematologic/Lymphatic Hematologic/Lymphatic: Denies anemia, easy bleeding or easy bruising Vital Signs Vital Signs Vital Signs: 09/04/23 13:05 09/04/23 13:05 09/04/23 13:42 Temperature 97.3 F L 97.3 F L Temperature Source Temporal Pulse Rate 61 61 Respiratory Rate 16 16 Respiratory Pattern Normal Blood Pressure 154/60 H 154/60 H Blood Pressure Mean 91 Blood Pressure Source Monitor Blood Pressure Position Semi-Fowlers Blood Pressure Location Right Arm Pulse Ox 96 96 Oxygen Delivery Method Room Air Room Air Weight Weight: 72.121 kg Body Mass Index (BMI) 22.8 Physical Exam Const alert and oriented x3 General Appearance: cooperative HEENT normocephalic, head/scalp atraumatic, EAC's normal and TM's normal bilaterally Eyes PERRL and EOMs intact bilaterally Pupil: sluggish Neck no lymphadenopathy, supple and no JVD General: trachea midline Lymph Lymphatic: no lymphadenopathy noted, lymphedema and lymphadenopathy Resp normal respiratory effort, normal air movement and clear to auscultation bilaterally Cardio regular rate, regular rhythm and peripheral pulses 2+ throughout GI soft to palpation, non-tender and non-distended Extremity normal capillary refill and no clubbing, cyanosis or edema General Extremity: no tenderness to palpation of joints or extremities Skin no rashes or lesions noted General Skin Exam: turgor normal Lesions: no lesions Rashes: no rashes Neuro CN's II-XII intact bilaterally Speech: speech normal Motor Exam: strength 5/5 throughout; Negative for general weakness Psych thought process normal, cooperative and affect normal Appearance: appropriate Assessment & Plan Assessment/Plan (1) BPH (benign prostatic hyperplasia): QUALIFIERS: Lower urinary tract symptom detail: urinary obstruction PLAN: Plan to proceed with a transurethral resection of the prostate (2) Acute on chronic urinary retention: (3) Elevated PSA:
--- NOTE | 2023-09-04 13:58 | PCM.DC ---
Discharge Instructions Diet Discharge Diet: No restrictions Activity Discharge Activity: Return to Normal Activity and May Not Drive (while taking narcotic pain medications.) Dressing / Incision Call your doctor if you observe: Fever of 101 or Higher Follow Up Care Please Follow Up With: Uvaldo Bush MD When: Call [phone] for an appointment Test Results: Test results from this visit will be discussed in further detail at your follow-up appointment, if applicable. Discharge Plan Admission Primary Reason for Your Visit: turp Attending Provider: Uvaldo Bush Primary Care Provider: Robson Mott Consulting Providers: Ethan Yanes Instructions Print Language: Croatian Discharge Orders/Prescriptions Prescriptions: New ciprofloxacin HCl [Cipro] 500 mg tablet 500 mg PO BID Qty: 14 0RF Continued levetiracetam 500 mg tablet 1,500 mg PO BID topiramate 50 MG tablet 1 tab PO BID Discontinued aspirin 81 MG tablet,chewable 81 mg PO DAILY cefpodoxime 200 mg tablet 200 mg PO Q12H Qty: 14 0RF Rx Instructions: must administer with a meal/food tamsulosin [Flomax] 0.4 mg capsule 0.4 mg PO DAILY Qty: 30 0RF Other Ambulatory Orders: 12 Lead EKG (Routine) Timeframe: [id number] Location: None Selected Ordered By: Dr. Ethan Yanes Referrals / Follow Up: Levar Pedroza MD [Med Staff - [employer]] - Disposition Disposition (needs filled in before D/C Order can be placed): Home, Self Care
[2023-09-04] MEDS: Cefazolin 2 GM in 0.9% Normal Saline (100mL Bag) 100 ML IV (14:22)
--- NOTE | 2023-09-04 14:40 | PROSBIL_PTH ---
PATIENT: PETER JENSEN LOC: MS3 U#:[id number] AGE/SX: 83/M ROOM: [facility] RE09/04/[address]: Dr. Uvaldo Bush MD : 1940 BED: 1 DIS: 09/05/2023 SPEC #: [id number] RECD: 09/04/23 16:43 STATUS: PROSPER NIEVES #: [id number] RADHA: 09/04/23 14:[address]: Uvaldo Bush DEPT: SURGICAL PATHOLOGY RECD BY: Vandana Starr ENTERED: 09/06/23 07:19 SP TYPE: PROST BX OTHR DR: MD Dr. Robson Garrett DO Tissues: A - Prostate, NOS B - PROSTATE BIOPSY Procedures: PROSTATE BX Surgery Specimen Level IV HEADER OPERATION: Cytso, transrectal biopsy of the prostate, transurethral resection PRE-OP DIAGNOSIS: Benign prostatic hyperplasia with lower urinary tract symptoms TISSUE SUBMITTED: A- Prostate chips, B- Prostate biopsy MICROSCOPIC DIAGNOSIS A. Prostate chips, transurethral resection: Prostatic adenocarcinoma. See cancer summary in the comment section. B. Prostate, core biopsy: Prostatic adenocarcinoma. Lombard grade: 5+4=9 Number of cores involved: 4/4 Proportion of tissue involved: ~50% Perineural invasion: Not identified. Greatest tumor length: 0.4 cm /mr 09/09/2023 COMMENT A. PROSTATE CANCER (TUR) SUMMARY: Procedure - Transurethral resection of prostate (TURP) Histologic type - Adenocarcinoma Histologic grade (Delroy Pattern) - 5+5=10 Tumor Quantitation (TUR specimens): Proportion (%) of prostatic tissue involved by tumor - 20-30% Periprostatic fat invasion - Not applicable Seminal vesicle invasion - Not applicable Lymphvascular invasion - Not identiifed Perineural invasion - Not identified Additional pathologic findings - - Acute and chronic inflammation - focal high-grade prostatic intraepithelial neoplasia (HGPIN). Treatment effect - No known presurgical therapy The above summary is in compliance with [employer] (CAP) Cancer Protocols Checklist and [place] Joint Committee on Cancer (AJCC), Staging Manual, 8th Ed. MICROSCOPIC DESCRIPTION Slides are reviewed. GROSS DESCRIPTION A. Received is one container labeled with the patient's name and designated prostate tissue. The specimen consists of multiple irregular fragments of pink-hernandez, rubbery, soft tissue that in aggregate weigh 8.5 gm and measure in aggregate 3.5 x 3.5 x 2.0 cm. The entire specimen is submitted in nine cassettes. B. Received in fixative is one container labeled with the patient's name and designated Prostate biopsy. The specimen consists of are four variable sized fragments of hernandez elongated soft tissue measuring 0.3 to 0.5cm in greatest length and 0.1cm in diameter. GURPREET/ 09/06/2023 TC:0 [facility]:[id number] ADDENDUM ADDENDUM ADDENDUM ADDENDUM ADDENDUM ADDENDUM ADDENDUM ADDENDUM ADDENDUM ADDENDUM ADDENDUM ADDENDUM ADDENDUM 09/24/2023 09:38 ADDENDUM 09/24/2023 09:38 ADDENDUM 09/24/2023 09:38 ADDENDUM 09/24/2023 09:38 ADDENDUM 09/24/2023 09:38 A. Prostate chips, transurethral resection: Immunohistochemistry ([id number]) supports the above diagnosis and consistent with prostate primary. B. Prostate, core biopsy: Immunohistochemistry ([id number]) supports the above diagnosis and consistent with prostate primary. Case has been reviewed in consultation with Dr. Hill who concurs with the above diagnosis. IDC:AM SJ/mr 09/24/2023
--- NOTE | 2023-09-04 15:19 | PCM.OPRPT ---
Report of Operation Date of Procedure: 09/04/23 Pre-Operative Diagnosis: Elevated PSA BPH with obstruction Post-Operative Diagnosis: The same Surgery/Procedure Performed:: Transurethral resection of the prostate, transrectal biopsy of the prostate Description of Surgical Findings:: Patient was taken back to the operating room after smooth induction of anesthesia he was placed in dorsolithotomy position the penis and testicles were prepped and draped in usual sterile fashion, he has a history of very elevated PSA over 500 very firm prostate on exam concerning for cancer he developed retention of urine he has a short length prostate but of significant obstruction probably from firm hard cancer that is blocking the channel so today we will do a transurethral section of prostate to restore normal voiding so that the patient can go without a catheter and running a biopsy of the prostate as well I also sent off the resection tissue for biopsy suspect he has prostate cancer also suspicious that he may have more advanced cancer given how high his PSA is. He stands up I will need more treatment such as hormone therapy or chemotherapy or radiation the future. Patient is taken back to the operative room at this with induction of anesthesia he was placed in dorsolithotomy position the penis and testicles were prepped and draped in usual fashion I first went into the urethra with a 21 English rigid cystourethroscope the entire length urethra is normal inside the prostate identified the verumontanum which was a very small bump very hard to see can did not identify the sphincter he had obstructive tissue bilaterally but not really significantly enlarged. I then switched over to the scope over to the 26 English bipolar resectoscope and started resecting the prostate after started at the median lobe resected back to the verumontanum again it was a small fragment antibiotic identify the resected right lobe the prostate level of the prostate anterior tissue and then very carefully resected the apical tissue I then cauterized all the tissue resection sites obtain hemostasis I did a flow test had a nice wide open flow pulled back behind the sphincter looked at the sphincter was intact and then we removed the cystoscope I then double gloves and used the guide to the glove and then a finger guided biopsy of the prostate on both sides he had very hard firm nodules on both sides of the prostate biopsies were obtained. And then I put a 22 English catheter in the bladder for continuous irrigation patient anesthetic was reversed taken back to the PACU in stable condition and he will stay overnight for irrigation we will do a voiding trial in a day or 2. Surgeon: Eleazar,Collin Type of Anesthesia: General Drains: [address] Admit VTE Documentation VTE Present on Admission: No VTE Mechan Device Prophylaxis: SCD's VTE Pharm Prophylaxis ordered?: No
--- NOTE | 2023-09-04 15:30 | PCM.POST.ANE ---
Anesthesia: Postop Eval I Current Vital Signs Temperature: 97.5 F Pulse Rate: 56 Blood Pressure: 174/77 Respiratory Rate: 16 Pulse Ox: 100 Oxygen Delivery Method: Room Air Assessment Airway patent: Yes Spontaneous unlabored respirations: Yes Mental status: Awake and Calm nausea: No Vomiting: No Anesthesia Complication: No Fluid Hydration Crystalloid volume administer (ml): 700 Total IV fluid infused: 700 Progress Note Anesthesia document: Postop Eval 1 completed: Yes
[2023-09-04] MEDS: Ketorolac 15 MG/ML Vial IV (15:35)
[2023-09-04] MEDS: 0.9% Normal Saline (1000mL) 1,000 ML 125 ML IV (16:36)
--- NOTE | 2023-09-04 19:02 | POSTOPAN2_ITS ---
Anesthesia Postop Eval I Sum Postop Eval Completion status Anesthesia document: Postop Eval 1 completed: Yes Anesthesia Postop Eval I Summary Anesthesia Postop Eval I Summary: Anesthesia Postop Eval I: Assessment Summary Airway patent Yes 09/04/23 15:30 BASE PLY HAND.SKOBY Spontaneous unlabored Yes 09/04/23 15:30 BASE PLY HAND.ANNABELLE respirations Mental status Awake,Calm 09/04/23 15:30 BASE PLY HAND.SKOBY nausea No 09/04/23 15:30 BASE PLY HAND.SKOBY Vomiting No 09/04/23 15:30 BASE PLY HAND.SKOBY Anesthesia Postop Eval I: Fluid Summary Crystalloid volume administer 700 09/04/23 15:30 BASE PLY HAND.SKOBY (ml) Colloids volume administered ( ml) Blood Product volume administered (ml) Total IV fluid infused 700 09/04/23 15:30 BASE PLY HAND.LAMBERTOOBEmmanuel Anesthesia Postop Eval I: Summary Notes Anesthesia Complication No 09/04/23 15:30 BASE PLY HAND.ANNABELLE Anesthesia Complication Comment: Post-operative progress note Anesthesia: Postop Eval II Evaluation Mental status: Awake and Calm Pain Level: 1 nausea: No Vomiting: No Complications Anesthesia Complication: No
--- NOTE | 2023-09-04 19:02 | PCM.POSTANE2 ---
Anesthesia Postop Eval I Sum Postop Eval Completion status Anesthesia document: Postop Eval 1 completed: Yes Anesthesia Postop Eval I Summary Anesthesia Postop Eval I Summary: Anesthesia Postop Eval I: Assessment Summary Airway patent Yes 09/04/23 15:30 ER [email or web address] Spontaneous unlabored Yes 09/04/23 15:30 ER [email or web address] respirations Mental status Awake,Calm 09/04/23 15:30 ER [email or web address] nausea No 09/04/23 15:30 ER [email or web address] Vomiting No 09/04/23 15:30 ER [email or web address] Anesthesia Postop Eval I: Fluid Summary Crystalloid volume administer 700 09/04/23 15:30 ER [email or web address] (ml) Colloids volume administered ( ml) Blood Product volume administered (ml) Total IV fluid infused 700 09/04/23 15:30 ER [email or web address] Anesthesia Postop Eval I: Summary Notes Anesthesia Complication No 09/04/23 15:30 ER [email or web address] Anesthesia Complication Comment: Post-operative progress note Anesthesia: Postop Eval II Evaluation Mental status: Awake and Calm Pain Level: 1 nausea: No Vomiting: No Complications Anesthesia Complication: No
[2023-09-04] MEDS: levETIRAcetam 750 MG Tablet 1500 MG PO (20:08)
[2023-09-04] MEDS: Topiramate 50 MG Tablet PO (20:08)
[2023-09-04] MEDS: Docusate Sodium 100 MG Capsule 200 MG PO (20:08)
[2023-09-04] MEDS: Ciprofloxacin 400 MG/200 ML BAG 200 MG IV (20:12)
[2023-09-05] MEDS: 0.9% Normal Saline (1000mL) 1,000 ML 125 ML IV ×2 (00:21→06:56)
[2023-09-05 00:28] VITALS: BP 118/60; PULSE 66; RESP 16; TEMP 37.1; O2SAT 97
[2023-09-05 04:28] VITALS: BP 152/68; PULSE 76; RESP 18; TEMP 36.9; O2SAT 96
[2023-09-05] MEDS: Topiramate 50 MG Tablet PO (07:39)
[2023-09-05] MEDS: Docusate Sodium 100 MG Capsule 200 MG PO (07:39)
[2023-09-05] MEDS: levETIRAcetam 750 MG Tablet 1500 MG PO (07:39)
[2023-09-05 07:41] VITALS: O2SAT 95
[2023-09-05 08:37] VITALS: BP 116/59; PULSE 59; RESP 16; TEMP 36.7; O2SAT 97
[2023-09-05] MEDS: Ciprofloxacin 400 MG/200 ML BAG 200 MG IV (09:16)
[2023-09-05 11:32] VITALS: BP 137/64; PULSE 90; RESP 16; TEMP 36.8; O2SAT 94
--- NOTE | 2023-09-05 14:37 | MDS.RN ---
Pt is going home, has a prescription for Cipro to be picked up at his pharmacy in [place] that is not open today due to the Holiday. Dr. Bush made aware and ordered a one time dose to be given here before he leaves and then can get from his pharmacy in the morning. Pt and family are aware of this.
[2023-09-05] MEDS: Ciprofloxacin 500 MG Tablet PO (14:52)
== END 2023-09-05 14:54 | disposition home or self-care (01) | DRG 713 ==
LOC: SDC 16:01 → MS3 16:01
PROVIDERS: Anesthesiology; Admitting Provider Urology; PCP Family Medicine; Referring Provider Urology; Visit Provider Urology
PROC: 0VT08ZZ Resection of Prostate, Via Natural or Artificial Opening Endoscopic (ICD-10-PCS; principal; 2023-09-04 14:30)
DX: N40.1 Benign prostatic hyperplasia with lower urinary tract symptoms (principal); N13.8 Other obstructive and reflux uropathy; C61 Malignant neoplasm of prostate; Z86.73 Personal history of transient ischemic attack (TIA), and cerebral infarction without residual deficits; R97.20 Elevated prostate specific antigen [PSA]; R33.9 Retention of urine, unspecified
CPT/HCPCS: 36415; 85730; 88305; 93005; 94668; J7030; J7120; G0416; J0744; J2405

== ENCOUNTER → 2023-10-03 | Outpatient (CLI) | payer MEDICARE, SELFPAY ==
--- NOTE | 2023-10-03 08:46 | NM_ITS ---
CLINICAL: 83-year-old male with a history of primary prostate carcinoma. WHOLE BODY 99m Tc MDP RADIONUCLIDE BONE SCINTIGRAPHY COMPARISON: None available FINDINGS: Following the intravenous administration of 27.0 mCi of 99m Tc MDP, whole body bone images reveal: 1. Multifocal increased radiopharmaceutical concentration is demonstrated in the appendicular and axial skeleton, too many individual sites to articulate. 2. Increased uptake is noted in the medial tibial compartment of the right knee, the lateral tibial plateau of the left proximal tibia metaphysis. 3. The remaining skeletal structures are scintigraphically unremarkable with normal-appearing renal images and urinary bladder activity identified. NM/Bone Scan Whole Body IMPRESSION: 1. The increase in radiopharmaceutical concentration is disseminated throughout the visualized appendicular and axial skeleton is commensurate with diffuse skeletal metastatic disease. 2. 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 Uptake noted in the left proximal tibial metaphysis likely represents a component of periostitis. Plain film radiography correlation may be of benefit. Electronically Signed: Aurelio Gill DO at 11:51 EDT ,
--- NOTE | 2023-10-03 12:00 | RAD_ITS ---
STUDY: X-RAY - RIGHT FEMUR REASON FOR STUDY: Male, 83 years old. ABNORMAL BONE SCAN TECHNIQUE: 4 view(s) of the femur. COMPARISON: None. FINDINGS: Sclerotic lesions seen in the right hemipelvis in keeping with the sclerotic metastasis. Focal sclerosis seen in the right intertrochanteric region as well as in the proximal shaft of the right femur. Normal visualized soft tissue structure. 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 Electronically Signed: Shaun Linares MD at 12:36 EDT ,
--- NOTE | 2023-10-03 12:00 | RAD_ITS ---
STUDY: X-RAY - LEFT FEMUR REASON FOR STUDY: Male, 83 years old. ABNORMAL BONE SCAN TECHNIQUE: 4 view(s) of the femur. COMPARISON: None. FINDINGS: Sclerotic lesion is seen in the left intertrochanteric region as well as in the sacrum and left iliac bone. Focal sclerosis also seen in the metaphysis of the distal femur. Normal visualized soft tissue structure. RAD/Femur Min 2 Views IMPRESSION: Findings suggests sclerotic metastasis. Electronically Signed: Shaun Linares MD at 12:36 EDT ,
--- NOTE | 2023-10-03 12:00 | RAD_ITS ---
STUDY: X-RAY - PELVIS REASON FOR EXAM: Male, 83 years old. ABNORMAL BONE SCAN TECHNIQUE: One view of the pelvis was obtained. COMPARISON: Bone scan earlier today FINDINGS: There is a non-specific bowel gas pattern. Normal visualized soft tissue structures. There are multiple ill-defined sclerotic lesions of the periphery of the iliac wings consistent with blastic metastases as suggested on recent bone scan. Normal visualized bilateral superior and inferior pubic rami. Normal pubic symphysis. Normal ischial tuberosities. 2 cm ill-defined sclerotic lesion within the intertrochanteric right femur corresponding to the area of increased uptake consistent with blastic metastasis. Normal right acetabulum. Normal right hip joint. 4 cm ill-defined sclerotic lesion of the lateral proximal left femur just distal to the intertrochanteric line corresponding to the area of increased uptake consistent with blastic metastasis. Normal left acetabulum. Normal left hip joint. 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 Electronically Signed: Aurelio Pillai MD at 9:22 EDT ,
== END | disposition home or self-care (01) ==
PROVIDERS: PCP Family Medicine; Referring Provider Urology; Visit Provider Urology
DX: C61 Malignant neoplasm of prostate (principal)
CPT/HCPCS: 72170; 73552; 78306; A9503

== ENCOUNTER → 2023-10-09 | Outpatient (CLI) | payer MEDICARE, SELFPAY ==
[2023-10-09 14:36] LABS: CREATININE FINGERSTICK 1.1 mg/dL (0.70-1.30); EGFR FINGERSTICK > 60.0000 mL/min (>60)
--- NOTE | 2023-10-09 14:42 | CT_ITS ---
EXAM: CT ABDOMEN AND PELVIS WITH INTRAVENOUS CONTRAST CLINICAL INDICATION: PROSTATE CA TECHNIQUE: Helically acquired images were obtained of the abdomen and pelvis with intravenous contrast. This CT exam was performed using one or more of the following dose reduction techniques: automated exposure control, adjustment of the mA and/or kV according to patient size, and/or use of iterative reconstruction technique. CONTRAST: 100 cc of Isovue-300 IV. With oral contrast. RADIATION DOSE: CTDIvol = 10.04 mGy, DLP = 791.77 mGy-cm COMPARISON: No relevant prior studies available. FINDINGS: LOWER THORAX: Unremarkable. Lung bases are clear. No cardiomegaly. No significant pericardial effusion. ABDOMEN: LIVER: There is diffuse low-attenuation of the liver. GALLBLADDER AND BILE DUCTS: Unremarkable. No calcified gallstones. No gallbladder distention or wall edema. No intra- or extrahepatic biliary ductal dilation. PANCREAS: Unremarkable. No focal cystic or solid mass. SPLEEN: Unremarkable. Normal size without focal cystic or solid mass. ADRENALS: Unremarkable. No nodules. KIDNEYS AND URETERS: Simple bilateral renal cysts. No follow-up of these simple cysts is necessary. Normal renal size and position. No hydronephrosis. STOMACH AND BOWEL: Unremarkable. No stomach or bowel distention. No focal inflammatory change. PELVIS: APPENDIX: No evidence of acute appendicitis. BLADDER: Mild diffuse urinary bladder wall thickening likely due to muscular hypertrophy. REPRODUCTIVE: The prostate gland is enlarged measuring 4.6 x 4.1 x 5.0 cm with a volume of 49.4 ml. Defect in the superior aspect of the prostate consistent with transurethral resection. ABDOMEN and PELVIS: INTRAPERITONEAL SPACE: Unremarkable. No ascites or other fluid collection. No free air. BONES/JOINTS: Numerous sclerotic lesions involving spine, pelvis, and ribs consistent with sclerotic metastases. SOFT TISSUES: See above. VASCULATURE: Unremarkable. Abdominal aorta is non-dilated. LYMPH NODES: Unremarkable. No enlarged lymph nodes. CT/Abdomen/Pelvis WITH Contrast IMPRESSION: 1. Numerous sclerotic lesions involving spine, pelvis, and ribs consistent with sclerotic metastases. 2. The prostate gland is enlarged. 3. Mild diffuse urinary bladder wall thickening likely due to muscular hypertrophy. 4. Fatty liver. 5. Defect in the superior aspect of the prostate consistent with transurethral resection. Electronically Signed: Ortega Nicolas MD at 1:32 EDT ,
== END | disposition home or self-care (01) ==
PROVIDERS: PCP Family Medicine; Referring Provider Urology; Visit Provider Urology
DX: R97.20 Elevated prostate specific antigen [PSA] (principal); C61 Malignant neoplasm of prostate; Z48.816 Encounter for surgical aftercare following surgery on the genitourinary system
CPT/HCPCS: 74177; Q9967

== ENCOUNTER → 2024-01-14 | Outpatient (CLI) | payer MEDICARE, SELFPAY ==
[2024-01-14 14:08] LABS: PSA,Total- Diagnostic 8.24 ng/mL (0.0-4.0)
== END | disposition home or self-care (01) ==
LOC: LAB 12:22
PROVIDERS: PCP Family Medicine; Referring Provider Nurse Practitioner; Visit Provider Nurse Practitioner
DX: C61 Malignant neoplasm of prostate (principal)
CPT/HCPCS: 36415; 84153

== ENCOUNTER → 2024-04-28 | Outpatient (CLI) | payer MEDICARE, SELFPAY | END | disposition home or self-care (01) | PROVIDERS: PCP Family Medicine; Referring Provider Urology; Visit Provider Urology | DX: R97.20 Elevated prostate specific antigen [PSA] (principal) | CPT/HCPCS: 36415; 84153 ==

== ENCOUNTER → 2024-05-05 | Outpatient (CLI) | payer MEDICARE, SELFPAY | END | disposition home or self-care (01) | LOC: LAB 15:10 | PROVIDERS: PCP Family Medicine; Referring Provider Urology; Visit Provider Urology | DX: R97.20 Elevated prostate specific antigen [PSA] (principal) | CPT/HCPCS: 84153 ==

== ENCOUNTER → 2024-07-28 | Outpatient (CLI) | payer MEDICARE, SELFPAY ==
[2024-07-28 12:21] LABS: PSA,Total- Diagnostic 2.21 ng/mL (0.00-4.00)
== END | disposition home or self-care (01) ==
LOC: LAB 09:40
PROVIDERS: PCP Family Medicine; Referring Provider Nurse Practitioner; Visit Provider Nurse Practitioner
DX: C61 Malignant neoplasm of prostate (principal)
CPT/HCPCS: 36415; 84153

== ENCOUNTER → 2024-11-04 | Outpatient (CLI) | payer MEDICARE, SELFPAY ==
[2024-11-04 14:32] LABS: PSA,Total- Diagnostic 1.81 ng/mL (0.00-4.00)
== END | disposition home or self-care (01) ==
LOC: LAB 13:25
PROVIDERS: PCP Family Medicine; Referring Provider Urology; Visit Provider Urology
DX: C61 Malignant neoplasm of prostate (principal)
CPT/HCPCS: 36415; 84153

== ENCOUNTER → 2025-02-09 | Outpatient (CLI) | payer MEDICARE, SELFPAY ==
[2025-02-09 11:13] LABS: PSA,Total- Diagnostic 4.15 ng/mL (0.00-4.00)
--- OUTSIDE RECORDS SUMMARY | 2025-02-09 11:57 | XMS RPT_ITS | CCD ---
Author Organization [facility] Care Team Providers Care Collection Agent Name Role Phone Unavailable Primary Care Provider Unavailabl e Tiera MAYES, Dr. Chance Primary Care Provider [place], Shanti Attending Provider [place], Shanti Referring Provider Eleazar YOUNG, Dr. Uvaldo Navarrete Attending Provider Eleazar YOUNG, Dr. Uvaldo Navarrete Referring Provider Dr. Robson Mott DO Primary Care Provider Dr. Nelson Serra DO Primary Care Provider [place], Shanti Attending Provider [phone] [place], Shanti Referring Provider Uvaldo Bush Referring Unavailable Robson Mott Primary Care Unavailable EleazarUvaldo Attending Unavailable Robson Mott Primary Care Unavailable [place], Shanti Attending Unavailable [place], Shanti Referring Unavailable Uvaldo Bush Attending Unavailable EleazarUvaldo alejandro Referring Unavailable Robson Mott Primary Care Unavailable EleazarUvaldo Referring Unavailable Robson Mott Primary Care Unavailable EleazarUvaldo alejandro Attending Unavailable Nelson Serra Primary Care Unavailable [place], Shanti Attending Unavailable [place], Shanti Referring Unavailable Dr. Robson Mott DO Primary Care Physician [phone] Eleazar YOUNG, Dr. Uvaldo Navarrete Attending Physician Eleazar YOUNG, Dr. Uvaldo Navarrete Referring Provider Medications Current Medications Medication Drug Class(es) Dates Sig (Normalized) Sig (Original) ciprofloxacin 500 mg oral tablet (4 sources) Quinolone Antimicrobial Start: 09-04-2023 take 1 tablet by mouth twice daily levETIRAcetam 500 mg oral tablet (8 sources) Start: 02-09-2020 take 3 tablets by mouth twice daily Start: 12-31-2019 End: 02-09-2020 take 1 tablet by mouth twice daily Levetiracetam 1,000 MG tablet Discontinued 1000 mg PO TWICE A DAY December 31, 2019 12:00am February 09, 2020 12:06pm topiramate 50 mg oral tablet (4 sources) Start: 12-31-2019 Completed/Discontinued Medications Medication Drug Class(es) Dates Sig (Normalized) Sig (Original) [id number] 200 actuat albuterol 0.09 mg/actuat metered dose inhaler (4 sources) beta2-Adrenergic Agonist Start: 01-16-2020 End: 08-22-2023 Albuterol Sulfate 1 INHALER inhaler Discontinued 2 NMA INHALATION EVERY 4 HOURS NEEDED as needed for SOB &/OR WHEEZING 0 January 16, 2020 1:00am August 22, 2023 1:13pm aspirin 81 mg chewable tablet (5 sources) Platelet Aggregation Inhibitor, Nonsteroidal Anti-inflammatory Drug Start: 12-31-2019 End: 09-04-2023 take 1 tablet by mouth once daily Aspirin 81 MG tablet,chewable Discontinued 81 mg PO DAILY December 31, 2019 12:00am September 04, 2023 1:51pm heart Start: 11-08-2004 take 1 tablet by richmond th once daily ASPIRIN 81 MG ORAL TAB Take one (1) tablet daily . 0 11/08/2004 Active Comment on above: Take one (1) tablet daily . cefpodoxime 200 mg oral tablet (4 sources) Cephalosporin Antibacterial Start: 08-15-19 24 End: 09-04-19 24 take 1 tablet by mouth every twelve hours at mealtime Cefpodoxime 200 mg tablet Discontinued 200 mg PO Q12H 14 August 15, 2023 12:00am September 04, 2023 1:51pm must administer with a meal/food ezetimibe 10 mg oral tablet (1 source) Dietary Cholesterol Absorption Inhibitor Start: 11-09-19 05 take 1 tablet by mouth once daily ZETIA 10 MG ORAL TAB Take one(1) tablet daily. 0 11/08/2004 Active Comment on above: Take one(1) tablet d aily. tamsulosin hydrochloride 0.4 mg oral capsule (4 sources) alpha-Adrenergic Kristin Start: 08-01-19 End: 09-04-19 take 1 capsule by mouth once daily Tamsulosin (Flomax) 0.4 mg capsule Discontinued 0.4 mg PO DAILY 30 0 August 01, 2023 12:00am September 04, 2023 1:51pm BLADDER RETENTION Problems Active Problems Problem Classification Problem Date Documented Date Episodic/Chronic Cancer of prostate (1 source) Malignant neoplasm of prostate; Translations: [Malignant neoplasm of prostate] Onset: 11-20-2024 Chronic Chronic kidney disease (4 sources) Chronic kidney disease; Translations: [Chronic kidney disease, unspecified] 12-31-2019 Chronic Disorders of lipid metabolism (1 source) Hyperlipidemia; Translations: [Other and unspecified hyperlipidemia] Onset: 11-08-2004 11-08-2004 Chronic Epilepsy; convulsions (4 sources) Seizure; Translations: [Unspecified convulsions] 12-31-2019 Episodic Genitourinary symptoms and ill-defined conditions (8 sources) Retention of urine; Translations: [Retention of urine, unspecified] 08-09-2023 Episodic Hyperplasia of prostate (4 sources) Benign prostatic hyperplasia; Translations: [Benign prostatic hyperplasia without lower urinary tract symptoms] 09-04-2023 Chronic Other and ill-defined cerebrovascular disease (1 source) Acute ill-defined cerebrovascular disease; Translations: [Acute, but ill-defined, cerebrovascular disease] Onset: 11-08-2004 11-08-2004 Chronic Other infections; including parasitic (2 sources) Personal history of other infectious and parasitic diseases; Translations: [History of 2019 novel coronavirus disease (COVID-19)] Onset: 01-18-2020 01-18-2020 Episodic Other nervous system disorders (4 sources) Metabolic encephalopathy; Translations: [Metabolic encephalopathy] 12-31-2019 Chronic Residual codes; unclassified (1 source) Sleep apnea; Translations: [Unspecified sleep apnea] Onset: 10-29-2005 10-29-2005 Chronic Residual codes; unclassified (4 sources) Confusional state; Translations: [Disorientation, unspecified] 12-31-2019 Episodic Urinary tract infections (4 sources) Cystitis; Translations: [Cystitis, unspecified without hematuria] 08-23-2023 Episodic Viral infection (4 sources) Disease caused by 2019-nCoV; Translations: [COVID-19] 12-31-2019 Episodic Past or Other Problems Problem Classification Problem Date Documented Date Episodic/Chronic Other screening for suspected conditions (not mental disorders or infectious disease) (5 sources) Raised prostate specific antigen; Translations: [Elevated prostate specific antigen [PSA]] Onset: 05-18-2024 09-04-2023 Episodic Residual codes; unclassified (1 source) Family history of malignant neoplasm of gastrointestinal tract; Translations: [Family history of malignant neoplasm of gastrointestinal tract] Onset: 11-08-2004 11-08-2004 Episodic Results Test Name Value Interpretation Reference Range Facility PSA,Total- [facility] 09-0 PSA, DIAGNOSTIC 1.81 ng/mL Normal 0.00-4.00 [facility] Comment on above: Result Comment: This test was performed using the [employer] tPSA method. Measured values of a patient??sample can vary depending on the testing procedure used. PSA values determined on patient samples by different testing procedures cannot be used interchangeably. If there is a change in PSA assays while monitoring therapy, sequential testing should be performed to confirm baseline values. Performed By: #### L [id number] #### [facility] [address] [place], [address] PSA,Total- Diagnosticon 05-2 PSA, DIAGNOSTIC 2.21 ng/mL Normal 0.00-4.00 [facility] Comment on above: Result Comment: This test was performed using the [employer] tPSA method. Measured values of a patient??sample can vary depending on the testing procedure used. PSA values determined on patient samples by different testing procedures cannot be used interchangeably. If there is a change in PSA assays while monitoring therapy, sequential testing should be performed to confirm baseline values. Performed By: #### L [id number] #### [facility] [address] [place], [place], [id number] Diagnostic total prostate sp ecific antigen (PSA) measurementOrdered By: Uvaldo Bush on 05-05-2024 Prostate Specific Antigen Total 3.00 ng/mL 0.00-4.00 [facility] Comment on above: This test was perfor med using the [employer] tPSA method. Measured values of a patient sample can vary depending on the testing procedure used. PSA values determined on patient samples by different testing procedures cannot be used interchangeably. If there is a change in PSA assays while monitoring therapy, sequential testing should be performed to confirm baseline values. PSA,Total- [facility] PSA, DIAGNOSTIC 3.00 ng/mL Normal 0.00-4.00 [facility] Comment on above: Result Comment: This test was performed using the [employer] tPSA method. Measured values of a patient??sample can vary depending on the testing procedure used. PSA values determined on patient samples by different testing procedures cannot be used interchangeably. If there is a change in PSA assays while monitoring therapy, sequential testing should be performed to confirm baseline values. Performed By: #### L [id number] #### [facility] [address] [place], [place], [address] Diagnostic total prostate sp ecific antigen (PSA) measurementOrdered By: Shanti Oakes on 01-14-2024 Prostate Specific Antigen Total 8.24 ng/mL High 0.0-4.0 [facility] Comment on above: This test was perfor med using the TPSA assay method for [employer] chemistry system. Values obtained with differentassay methods cannot be used interchangably.When changing PSA assays in the course of monitoring apatient, additional sequential testing should be carriedout to confirm baseline values. PSA,Total- [facility] 01-02 PSA, DIAGNOSTIC 8.24 ng/mL High 0.0-4.0 [facility] Comment on above: Result Comment: This test was performed using the TPSA assay method for the [employer] system. Values obtained with different assay methods cannot be used interchangably. When changing PSA assays in the course of monitoring a patient, additional sequential testing should be carried out to confirm baseline values. Performed By: #### L [id number] #### [facility] [address] 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 Robson Mott DO Work Phone: -Laboratory Start: 11-04-2024 End: 11-04-[address] Uvaldo Bush MD -Laboratory Work Phone: Start: 11-04-2024 End: 11-04-2024 ambulatory Uvaldo Bush Facility:[facility] Start: 07-28-2024 End: 07-28-[address] Robson Mott DO Work Phone: [facility] Work Phone: Start: 07-28-2024 End: 07-28-2024 Patient encounter procedure Shanti Oakes -Laboratory Work Phone: Start: 07-28-2024 End: 07-28-2024 ambulatory Nelson Serra Facility:[facility] Start: 05-05-2024 End: 05-05-[address] Robson Mott DO Work Phone: [facility] Work Phone: Start: 05-05-2024 End: 05-05-[address] Uvaldo Bush MD -Laboratory Work Phone: Start: 05-05-2024 End: 05-05-2024 ambulatory Uvaldo Bush Facility:[facility] Start: 04-28-2024 End: 04-28-[address] Robson Mott DO Work Phone: [facility] Work Phone: Start: 04-28-2024 End: 04-28-[address] Uvaldo Bush MD -Laboratory Work Phone: Start: 04-28-2024 End: 04-28-2024 ambulatory Uvaldo Bush Facility:[facility] Start: 01-14-2024 End: 01-14-2024 Patient encounter procedure Shanti Oakes -Laboratory Work Phone: Start: 01-14-2024 End: 01-14-2024 ambulatory Robson Mott Facility:[facility] Start: 01-18-2020 End: 01-18-2020 Telephone encounter [facility] (Historical) [facility] [place] Comment on above: Outside Lab Results Procedures Date Procedure Procedure Detail Performing Clinician Start: 11-04-2024 Assay of prostate sp ecific antigen total Dr. Robson Mott DO Work Phone: Comment on above: This test was perfor med using the [employer] tPSA method. Measured values of a patient sample can vary depending on the testing procedure used. PSA values determined on patient samples by different testing procedures cannot be used interchangeably. If there is a change in PSA assays while monitoring therapy, sequential testing should be performed to confirm baseline values. Start: 07-28-2024 Assay of prostate sp ecific antigen total Dr. Robson Mtot DO Work Phone: Comment on above: This test was perfor med using the [employer] tPSA method. Measured values of a patient sample can vary depending on the testing procedure used. PSA values determined on patient samples by different testing procedures cannot be used interchangeably. If there is a change in PSA assays while monitoring therapy, sequential testing should be performed to confirm baseline values. Start: 05-05-2024 Assay of prostate sp ecific antigen total Dr. Robson Mott DO Work Phone: Comment on above: This test was perfor med using the [employer] tPSA method. Measured values of a patient sample can vary depending on the testing procedure used. PSA values determined on patient samples by different testing procedures cannot be used interchangeably. If there is a change in PSA assays while monitoring therapy, sequential testing should be performed to confirm baseline values. Start: 12-31-2019 2019 CORONAVIRUS [facility] ovider Plan of Treatment Date Care Activity Detail Author Start: 11-03-2019 Influenza vaccination INFLUENZA (#1) [facility] Start: 04-18-2011 ADVANCE DIRECTIVE DISCUSSION ADVANCE DIRECTIVE DISCUSSION [facility] Start: 10-19-2008 LIPID SCREEN LIPID SCREEN [facility] Start: 10-19-2006 DIABETES SCREEN DIABETES SCREEN [facility] Start: 2006 PNEUMOVAX AGE 65 AND OVER WITH 5YR LOOKBACK (#1) PNEUMOVAX AGE 65 AND OVER WITH 5YR LOOKBACK (#1) [facility] Start: 05-13-1991 COLORECTAL CANCER SCREENING,SEE MODIFIER COLORECTAL CANCER SCREENING,SEE MODIFIER [facility] Start: 05-13-1991 SHINGRIX VACCINE (1 of 2) [place] GRIX VACCINE (1 of 2) [facility] Start: 1960 Urine microalbumin profile DTAP,TDAP ,TD (1 - Tdap) [facility] Start: 05-13-1959 HEPATITIS C SCREENING HEPATITIS C [facility] Payers Date Payer Category Payer Self-pay 2024 Unknown [id number] 2000 Unknown MMO [employer] PLUS [id number] 2000-Present PPO [id number] Unknown [id number] Unknown [id number] Unknown [id number] Unknown [id number] Unknown [id number] Social History Date Type Detail Facility Start: 10-29-2005 Tobacco smoking stat [facility] Unknown if ever smoked [facility] Sex Assigned At Not [facility] Start: [facility]-2023 [facility] Start: 12-31-2019 None None [facility] Start: 12-31-2019 Spouse/ Significant Other Spouse/ Significant Other [facility] Start: 12-31-2019 Non-smoker Non-smoker [facility] Start: 05-11-2024 End: 05-18-2024 Sex Male (finding) [facility] Start: 1940 Sex Assigned At Male 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 Advance Directive(s) 04/18/2006 12:00 AM Chief Complaint and Reason for Visit Chief Complaint Admit Date RE DRAW NO CHARGE May 05, 2024 3:09 pm Family History Relationship Condition Age at Onset Recorded Date/T idalia mother Diabetes mellitus Unknown father Diabetes mellitus Unknown Summary Purpose Additional Source Comments Source Comments (unrecognize d section and content) In the event this informatio n is protected by the Federal Confidentiality of Alcohol and Drug Abuse Patient Records regulations: The Federal rules restrict any use of the information to criminally investigate or prosecute any alcohol or drug abuse patient.[facility] Reason for Visit (unrecogniz ed section and content) Reason Comments Outside Lab Results Telephone Encounter - Jenae Velazquez Ma - 01/18/2020 2:12 PM ESTTelephone Encounter - Noble Barragan - 01/18/2020 2:03 PM ESTTelephone Encounter - Char Shirley LPN - 01/18/2020 11:16 AM EST Miscellaneous Notes (unrecog nized section and content) Patient was notified and verbalized understanding Jenae Velazquez Ma Let know my first new patient appt is about 4-5 months out. He should probably stay with his current PCP until he can be seen to establish. With the COVID dx we would ask not to be seen for 30 days in the building and seen by virtual appt which he should do with his PCP at this time. Discharge from hosp for Covid on 01/16/20. Pt's Ada calling to say the paper work from discharge said pt is to FU with Dr Pedroza in 3-5 days. She states pt's pcp is Dr Serra in [place] however her (spouses) pcp is Dr Barragan & she is asking if he will take on pt? She reports pt is on 4 liter o2, doing better but gets sob with moving around. Please advise. Char Shirley LPN Pt was seen at [facility] 12/31/19 tested for COVID was positive, admitted for COVD Confusion Acute metabolic encephalopathy Discharged to home 01/16/20. documented in this encounter Care Teams (unrecognized sec tion and content) Team Status: Active Member Role Status Dates Dr. Robson Mott DO Primary Care Provider Active Team Status: Inactive Member Role Status Dates Dr. Robson Mott DO Primary Care Provider Active Start: January 14, 2024 End: January 14, 2024 Shanti Oakes Attending Provider Active Start : January 14, 2024 End: January 14, 2024 Shanti Oakes Referring Provider Active Start : January 14, 2024 End: January 14, 2024 Team Status: Inactive Member Role Status Dates Dr. Robson Mott DO Primary Care Provider Active Start: April 28, 2024 End: April 28, 2024 Dr. Uvaldo Bush MD Attending Provider Active Start: April 28, 2024 End: April 28, 2024 Dr. Uvaldo Bush MD Referring Provider Active Start: April 28, 2024 End: April 28, 2024 Team Status: Active Member Role Status Dates Dr. Robson Mott DO Primary Care Provider Active Start: May 05, 2024 Dr. Uvaldo Bush MD Attending Provider Active Start: May 05, 2024 Dr. Uvaldo Bush MD Referring Provider Active Start: May 05, 2024 Team Status: Inactive Member Role Status Dates Dr. Robson Mott DO Primary Care Provider Active Start: May 05, 2024 End: May 05, 2024 Dr. Uvaldo Bush MD Attending Provider Active Start: May 05, 2024 End: May 05, 2024 Dr. Uvaldo Bush MD Referring Provider Active Start: May 05, 2024 End: May 05, 2024 Team Status: Active Member Role Status Dates Dr. Nelson Serra DO Primary Care Provider Active Team Status: Inactive Member Role Status Dates Dr. Nelson Serra DO Primary Care Provider Active Start: July 28, 2024 End: July 28, 2024 Shanti [place] Attending Provider Active Start : July 28, 2024 End: July 28, 2024 Shanti [place] Referring Provider Active Start : July 28, 2024 End: July 28, 2024 Team Status: Active Member Role/Relationship Status Dates Dr. Robson Mott DO Primary care physician Active Team Status: Inactive Member Role/Relationship Status Dates Dr. Robson Mott DO Primary care physician Active Start: November 04, 2024 End: November 04, 2024 Dr. Uvaldo Bush MD Attending physician Active Start: November 04, 2024 End: November 04, 2024 Dr. Uvaldo Bush MD Referring Provider Active Start: November 04, 2024 End: November 04, 2024 Goals (unrecognized section and content) Goals may be documented in a n alternate sectionGoals may be documented in an alternate sectionGoals may be documented in an alternate sectionGoals may be documented in an alternate section (unrecognized sect ion and content) No Status Records Found INFORMATION SOURCE (unrecogn ized section and content) DATE CREATED AUTHOR 11/21/2024 [facility] FOR RECORDS PERTAINING TO PATIENTS WHO ARE OR HAVE BEEN ENROLLED IN A CHEMICAL DEPENDENCY/SUBSTANCEABUSE PROGRAM, SOME INFORMATION MAY BE OMITTED. This clinical summary was aggregated from multiple sources. Caution should be exercised in using it in the provision of clinical care. This summary normalizes information from multiple sources, and as a consequence, information in this document may materially change the coding, format and clinical context of patient data. In addition, data may be omitted in some cases. CLINICAL DECISIONS SHOULD BE BASED ON THE PRIMARY CLINICAL RECORDS. [facility] [employer] provides no warranty or guarantee of the accuracy or completeness of information in this document.
== END | disposition home or self-care (01) ==
LOC: LAB 09:44
PROVIDERS: PCP Family Medicine; Referring Provider Urology; Visit Provider Urology
DX: C61 Malignant neoplasm of prostate (principal)
CPT/HCPCS: 36415; 84153